=== PATIENT | female | born 1955 | race Caucasian/White ===

== ENCOUNTER 2019-12-28 14:46 | Outpatient (REF) | payer MEDICARE, OTHER, SELFPAY ==
--- NOTE | 2019-12-28 14:54 | MM_ITS ---
EXAMINATION: BONE DENSITOMETRY CLINICAL INDICATION: Asymptomatic menopausal state. COMPARISON: Baseline BD dated 04/11/2008. TECHNIQUE: Using a [employer]eline DXA System (software version: 13.1) manufactured by [employer], dual-energy x-ray absorptiometry was performed of the lumbar spine and left hip. The images are of good technical quality. Summary results are attached. FINDINGS: AP SPINE L1-L2 (excluding L3 and L4): The data of L1-L4 has been changed to exclude the L3 and L4 vertebral bodies, because degenerative sclerosis at these levels may cause overestimation of lumbar spine density. Current: BMD 1.181 g/cm2, Z-score 1.4, T-score 0.1, normal, 0.3% decrease from baseline (<5% change is not significant). Baseline: BMD 1.185 g/cm2. LEFT FEMUR, NECK: Current: BMD 0.937 g/cm2, Z-score 0.5, T-score -0.7, normal. Baseline: BMD 0.957 g/cm2. LEFT FEMUR, TOTAL: Current: BMD 1.112 g/cm2, Z-score 1.8, T-score 0.8, normal, 2.9% increase from baseline (<5% change is not significant). Baseline: BMD 1.081 g/cm2. IDENTIFIED RISK FACTORS: Menopause, thiazide. HISTORY OF FRACTURE: None listed. MEDICATIONS: Vitamin D. MM/XR DEXA axial skeleton IMPRESSION: 1. DIAGNOSIS: Normal bone density based on the lowest T-score value of -0.7 in the femoral neck applying World Health Organization criteria. 2. 10-YEAR FRACTURE RISK PREDICTION, FRAX: Major osteoporotic fracture (clinical spine, forearm, hip or shoulder) 7.3%. Hip fracture 0.4%. 3. Treatment Recommendations: NOF guidelines recommend consideration for treatment in postmenopausal women and men age 50 and older presenting with the following: -A hip or vertebral (clinical or morphometric) fracture. -T-score less than or equal to -2.5 at the femoral neck or spine after appropriate evaluation to exclude secondary causes. -Low bone mass at the hip or spine and a 10-year fracture probability by FRAX of greater than or equal to 3% for hip fracture or greater than or equal to 20% for major osteoporotic fracture based on the [place] adapted WHO algorithm. 4. Other Recommendations: All treatment decisions require clinical judgment and consideration of individual patient factors, including patient preferences, comorbidities, previous drug use, risk factors not captured in the FRAX model (e.g. frailty, falls, vitamin D deficiency, increased bone turnover, interval significant decline in bone density) and possible under or overestimation of fracture risk by FRAX. FUTURE SCAN RECOMMENDATION: People with diagnosed cases of osteoporosis or at high risk for fracture should have regular bone mineral density tests. For patients eligible for Medicare, routine testing is allowed once every 2 years. The testing frequency can be increased to one year for patients who have rapidly progressing disease, those who are receiving or discontinuing medical therapy to restore bone mass, or have additional risk factors.
--- NOTE | 2019-12-28 14:55 | MM_ITS ---
EXAMINATION: MM SCREENING DIGITAL BREAST TOMOSYNTHESIS, BILATERAL CLINICAL INFORMATION: Screening. Asymptomatic. The lifetime risk of breast cancer based on the Tyrer-Cuzick Model is 6%. COMPARISON: Mammography: 05/15/2018, 12/20/2016 TECHNIQUE: Digital breast tomosynthesis is performed in both the craniocaudal and mediolateral oblique views along with computer-aided detection (CAD). Synthesized 2D images are generated from the tomosynthesis. FINDINGS: There are scattered areas of fibroglandular density (ACR BI-RADS breast composition Category b). Parenchymal pattern is similar to prior studies. No developing density or interval mass or architectural abnormality. There are some dermal lesions again noted overlying both breasts, better appreciated on tomography. Scattered bilateral punctate calcifications are again noted. There are no suspicious changes. MM/MM tomosynthesis screening BI IMPRESSION: No significant changes from prior studies. ASSESSMENT: BI-RADS 2: Benign RECOMMENDATION: Routine annual mammography screening. This patient's information was entered into a reminder system with a target due date for their next mammogram.
== END 2019-12-28 14:47 | disposition home or self-care (01) ==
LOC: HO.MAMMO 14:46
PROVIDERS: PCP Internal Medicine; Visit Provider Internal Medicine
DX: Z12.31 Encounter for screening mammogram for malignant neoplasm of breast (principal); Z13.820 Encounter for screening for osteoporosis; Z78.0 Asymptomatic menopausal state; Z79.899 Other long term (current) drug therapy
CPT/HCPCS: 77063; 77067; 77080

== ENCOUNTER 2020-02-21 06:53 | Outpatient (REF) | payer MEDICARE, OTHER, SELFPAY ==
[2020-02-21 08:31] LABS: Alanine Aminotransferase 24 U/L (0-31); Anion Gap 13 (12-20); Aspartate Amino Transferase 16 U/L (5-31); Blood Urea Nitrogen 28 mg/dL (9-16); Calcium 9.7 mg/dL (8.4-10.2); Carbon Dioxide 28 mmol/L (22-29); Chloride 104 mmol/L (96-108); Cholesterol 251 mg/dL; Estimated Glomerular Filt Rate > 60; Glucose Fasting 105 mg/dL (60-99); HDL Cholesterol 49 mg/dL; LDL Cholesterol Calculated 163 mg/dl; Potassium 4.4 mmol/l (3.3-5.1); Sodium 141 mmol/L (135-145); Triglycerides 196 mg/dL
[2020-02-21 08:47] LABS: Estimated Average Glucose 120 mg/dL; Hemoglobin A1C 151.8836 umol/L; Hemoglobin A1c % 5.8 %
[2020-02-21 08:54] LABS: Free T4 (Free Thyroxine) 0.91 ng/dL (0.71-1.85); Thyroid Stimulating Hormone 3.71 uIU/mL (0.32-4.0); Vitamin D 25-OH Total 32.1 ng/mL (>30)
[2020-02-22 11:13] LABS: Lyme Abs Screen <0.90 index
== END 2020-02-21 06:54 | disposition home or self-care (01) ==
LOC: HO.LAB 06:53
PROVIDERS: PCP Internal Medicine; Visit Provider Internal Medicine
DX: I10 Essential (primary) hypertension (principal); R73.01 Impaired fasting glucose; E03.9 Hypothyroidism, unspecified; E78.5 Hyperlipidemia, unspecified; Z78.0 Asymptomatic menopausal state; S40.861A Insect bite (nonvenomous) of right upper arm, initial encounter
CPT/HCPCS: 36415; 80048; 80061; 82306; 83036; 84439; 84443; 84450; 84460; 86618

== ENCOUNTER 2020-07-02 10:16 | Outpatient (REF) | payer MEDICARE, OTHER, SELFPAY ==
--- NOTE | ~2020-07-02 | XR_ITS ---
EXAMINATION: XR HAND WRIST, LEFT CLINICAL INFORMATION: Pain in left wrist. COMPARISON: None TECHNIQUE: The left hand and wrist are imaged together in 3 large [id number]-[id number] images for a total of 3 views. FINDINGS: There is normal bony mineralization. There is no fracture, dislocation, or destructive process. The ulnar variance is neutral. The carpus shows no joint narrowing or erosive change or chondrocalcinosis. There is a small benign corticated ossicle adjacent to the radial styloid. The MCP and PIP joints are unremarkable. There are mild osteoarthritic changes involving the DIP joints, greatest at the 5th finger. No erosive change. XR/XR hand wrist LT IMPRESSION: 1. Degenerative changes DIP joints, greatest 5th finger. 2. Unremarkable wrist.
== END 2020-07-02 10:17 | disposition home or self-care (01) ==
LOC: HO.HMGCX 10:16
PROVIDERS: PCP Internal Medicine; Visit Provider Internal Medicine
DX: M25.532 Pain in left wrist (principal)
CPT/HCPCS: 73110; 73130

== ENCOUNTER 2020-07-07 07:26 | Outpatient (REF) | payer MEDICARE, OTHER, SELFPAY ==
[2020-07-07 08:03] LABS: MANUAL DIFF FLAG NO
[2020-07-07 08:13] LABS: Basophils Percent Auto 0.3 % (0-2); Eosinophils Absolute Auto 0.3 X10*3/uL (0.0-0.4); Hematocrit 40.4 % (37-47); Hemoglobin 13.4 g/dl (12.0-16.0); Imm Gran Abs Auto 0.01 X10*3/uL (0.00-0.03); Imm Gran Pct Auto 0.2 % (0.0-0.4); Lymphocytes Absolute Auto 3.2 X10*3/uL (1.2-4.9); Mean Corpuscular HGB Conc 33.2 g/dl (31.0-35.0); Mean Corpuscular Volume 90.4 fL (80-98); Mean Platelet Volume 10.3 fL (9.4-12.3); Monocytes Absolute Auto 0.5 X10*3/uL (0.1-1.2); Monocytes Percent Auto 7.4 % (2-11); Neutrophils Absolute Auto 2.6 X10*3/uL (2.0-8.3); Neutrophils Percent Auto 40.1 % (45-73); Platelet Count 223 X10*3/uL (160-400); Red Blood Count 4.47 X10*6/uL (4.20-5.50); Red Cell Distribution Width 12.9 % (11.0-16.0); White Blood Count 6.6 X10*3/uL (4.8-10.8)
[2020-07-07 08:16] LABS: Estimated Average Glucose 120 mg/dL; Hemoglobin A1c % 5.8 %
[2020-07-07 08:40] LABS: Alanine Aminotransferase 27 U/L (0-31); Anion Gap 13 (12-20); Aspartate Amino Transferase 19 U/L (5-31); Blood Urea Nitrogen 19 mg/dL (9-16); Calcium 9.7 mg/dL (8.4-10.2); Carbon Dioxide 27 mmol/L (22-29); Chloride 105 mmol/L (96-108); Cholesterol 186 mg/dL; Estimated Glomerular Filt Rate > 60; Glucose Fasting 109 mg/dL (60-99); HDL Cholesterol 40 mg/dL; LDL Cholesterol Calculated 121 mg/dl; Potassium 3.8 mmol/L (3.3-5.1); Sodium 141 mmol/L (135-145); Triglycerides 129 mg/dL
[2020-07-07 08:54] LABS: Free T4 (Free Thyroxine) 1.08 ng/dL (0.71-1.85); Thyroid Stimulating Hormone 1.54 uIU/mL (0.32-4.0); Vitamin D 25-OH Total 40.9 ng/mL (>30)
== END 2020-07-07 07:27 | disposition home or self-care (01) ==
LOC: HO.LAB 07:26
PROVIDERS: PCP Internal Medicine; Visit Provider Internal Medicine
DX: E03.9 Hypothyroidism, unspecified (principal); E78.5 Hyperlipidemia, unspecified; R73.01 Impaired fasting glucose; K21.9 Gastro-esophageal reflux disease without esophagitis; I10 Essential (primary) hypertension
CPT/HCPCS: 36415; 80048; 80061; 82306; 83036; 84439; 84443; 84450; 84460; 85025

== ENCOUNTER 2021-02-23 10:16 | Outpatient (REF) | payer MEDICARE, OTHER, SELFPAY ==
--- NOTE | ~2021-02-23 | MM_ITS ---
EXAMINATION: MM SCREENING DIGITAL BREAST TOMOSYNTHESIS, BILATERAL CLINICAL INFORMATION: Screening. Asymptomatic. The lifetime risk of breast cancer based on the Tyrer-Cuzick Model is 7%. COMPARISON: Mammography: 12/28/2019, 05/15/2018, 12/20/2016 TECHNIQUE: Digital breast tomosynthesis is performed in both the craniocaudal and mediolateral oblique views along with computer-aided detection (CAD). Synthesized 2D images are generated from the tomosynthesis. FINDINGS: There are scattered areas of fibroglandular density (ACR BI-RADS breast composition Category b). Parenchymal pattern is similar to prior studies. There is no developing density or interval architectural abnormality. Again, there are scattered bilateral punctate calcifications. The axilla are unremarkable. There are some dermal lesions overlying the bilateral posterior inferior breasts and upper left breast. No significant changes from prior study. MM/MM tomosynthesis screening BI IMPRESSION: There are no significant changes from prior study. ASSESSMENT: BI-RADS 2: Benign RECOMMENDATION: Routine annual mammography screening. This patient's information was entered into a reminder system with a target due date for their next mammogram.
== END 2021-02-23 10:17 | disposition home or self-care (01) ==
LOC: HO.MAMMO 10:16
PROVIDERS: PCP Internal Medicine; Visit Provider Internal Medicine
DX: Z12.31 Encounter for screening mammogram for malignant neoplasm of breast (principal)
CPT/HCPCS: 77063; 77067

== ENCOUNTER 2022-01-11 09:37 | Outpatient (REF) | payer MEDICARE, OTHER, SELFPAY ==
[2022-01-11 12:01] LABS: Estimated Average Glucose 117 mg/dL; Hemoglobin A1c % 5.7 %
[2022-01-11 12:53] LABS: Alanine Aminotransferase 27 U/L (0-31); Aspartate Amino Transferase 19 U/L (5-31); Cholesterol 205 mg/dL; HDL Cholesterol 48 mg/dL; LDL Cholesterol Calculated 133 mg/dl; Thyroid Stimulating Hormone 0.89 uIU/mL (0.32-4.0); Triglycerides 123 mg/dL; Vitamin D 25-OH Total 47.6 ng/mL (>30)
== END 2022-01-11 09:38 | disposition home or self-care (01) ==
LOC: HO.HMGCLDS 09:37
PROVIDERS: PCP Internal Medicine; Visit Provider Internal Medicine
DX: E03.9 Hypothyroidism, unspecified (principal); E78.5 Hyperlipidemia, unspecified; I10 Essential (primary) hypertension; R73.01 Impaired fasting glucose; Z78.0 Asymptomatic menopausal state
CPT/HCPCS: 36415; 80061; 82306; 83036; 84443; 84450; 84460

== ENCOUNTER 2022-05-31 07:01 | Outpatient (REF) | payer MEDICARE, OTHER, SELFPAY ==
[2022-05-31 08:06] LABS: Anion Gap 12 (12-20); Blood Urea Nitrogen 23 mg/dL (9-16); Calcium 9.5 mg/dL (8.4-10.2); Carbon Dioxide 29 mmol/L (22-29); Chloride 104 mmol/L (96-108); Estimated Glomerular Filt Rate > 60; Glucose Fasting 114 mg/dL (60-99); Potassium 4.4 mmol/L (3.3-5.1); Sodium 141 mmol/L (135-145)
== END 2022-05-31 07:02 | disposition home or self-care (01) ==
LOC: HO.LAB 07:01
PROVIDERS: PCP Internal Medicine; Visit Provider Internal Medicine
DX: E03.9 Hypothyroidism, unspecified (principal); E78.5 Hyperlipidemia, unspecified; I10 Essential (primary) hypertension; R73.01 Impaired fasting glucose; Z78.0 Asymptomatic menopausal state
CPT/HCPCS: 36415; 80048; 84439

== ENCOUNTER 2022-07-08 07:58 | Outpatient (REF) | payer MEDICARE, OTHER, SELFPAY ==
--- NOTE | ~2022-07-08 | MM_ITS ---
EXAMINATION: MM SCREENING DIGITAL BREAST TOMOSYNTHESIS, BILATERAL CLINICAL INFORMATION: Screening. Asymptomatic. The lifetime risk of breast cancer based on the Tyrer-Cuzick Model is 6%. COMPARISON: Mammography: 02/23/2021, 12/28/2019, 05/15/2018 TECHNIQUE: Digital breast tomosynthesis is performed in both the craniocaudal and mediolateral oblique views along with computer-aided detection (CAD). Synthesized 2D images are generated from the tomosynthesis. FINDINGS: There are scattered areas of fibroglandular density (ACR BI-RADS breast composition Category b). Parenchymal pattern is similar to prior exams and there is no significant mass or developing density or architectural abnormality. Scattered bilateral punctate calcifications are again noted in both breasts. There are 2 small stable nodules mid outer left breast likely intramammary nodes. Dermal lesion again seen overlying upper left breast. The axilla are unremarkable. No significant changes. MM/MM tomosynthesis screening BI IMPRESSION: No mammographic evidence of malignancy. ASSESSMENT: BI-RADS 2: Benign RECOMMENDATION: Routine annual mammography screening. This patient's information was entered into a reminder system with a target due date for their next mammogram.
== END 2022-07-08 07:59 | disposition home or self-care (01) ==
LOC: HO.MAMMO 07:58
PROVIDERS: PCP Internal Medicine; Visit Provider Internal Medicine
DX: Z12.31 Encounter for screening mammogram for malignant neoplasm of breast (principal)
CPT/HCPCS: 77063; 77067

== ENCOUNTER 2022-08-23 10:13 | Outpatient (REF) | payer MEDICARE, OTHER, SELFPAY ==
--- NOTE | ~2022-08-23 | US_ITS ---
EXAMINATION: US EXTRACRANIAL CAROTID DUPLEX, BILATERAL CLINICAL INFORMATION: Dizziness and giddiness COMPARISON: None available. TECHNIQUE: Real-time ultrasound and Doppler techniques (integrating B-mode 2-D vascular images, Doppler spectral analysis and color-flow Doppler imaging) were utilized to interrogate the extracranial carotid arteries, the vertebral arteries and proximal subclavian arteries bilaterally. The degree of stenosis is determined by criteria similar to NASCET. FINDINGS: Right Side: 1. There is no atherosclerotic plaque seen in the bifurcation/proximal ICA region. 2. The common carotid artery PSV proximally is 96 cm/s and distally 81 cm/s. 3. The proximal internal carotid artery velocities are 61 cm/s systolic and 27 cm/s diastolic. 4. The proximal external carotid artery PSV is 83 cm/s. 5. The vertebral artery shows antegrade flow. 6. The subclavian artery waveforms are normal. Left Side: 1. There is no atherosclerotic plaque seen in the bifurcation/proximal ICA region. 2. The common carotid artery PSV proximally is 70 cm/s and distally 83 cm/s. 3. The proximal internal carotid artery velocities are 66 cm/s systolic and 27 cm/s diastolic. 4. The proximal external carotid artery PSV is 98 cm/s. 5. The vertebral artery shows antegrade flow. 6. The subclavian artery waveforms are normal. US/US carotid duplex BI IMPRESSION: 1. RIGHT: Normal right internal carotid artery without atherosclerotic plaque or hemodynamically significant stenosis. 2. LEFT: Normal left internal carotid artery without atherosclerotic plaque or hemodynamically significant stenosis.
== END 2022-08-23 10:14 | disposition home or self-care (01) ==
LOC: HO.US 10:13
PROVIDERS: PCP Internal Medicine; Visit Provider Internal Medicine
DX: R42 Dizziness and giddiness (principal)
CPT/HCPCS: 93880

== ENCOUNTER 2023-01-12 08:11 | Outpatient (AMB) | payer MEDICARE, OTHER, SELFPAY ==
[2023-01-12 08:21] VITALS: BP 142/88; PULSE 64; O2SAT 98; BMI 35.2
--- NOTE | 2023-01-12 08:21 | AM.OFFVISMDC ---
Intake Vital Signs 01/12/23 08:21 Height 5 ft Weight 180 lb 8 oz BMI 35.2 BP 142/88 H Blood Pressure Location Rt brachial Position Sitting Pulse 64 Pulse Source Pulse Oximeter Pulse Oximetry (%) 98 Oxygen Delivery Method Room Air Intake Visit Reasons: SWV [id number] Intake Note: pt declined health care proxy and molst form Allergies amlodipine [From Lotrel] Allergy (Unknown, Verified 01/12/23 09:02) Rash benazepril [From Lotrel] Allergy (Unknown, Verified 01/12/23 09:02) Rash IVP dye Allergy (Unknown, Uncoded 01/12/23 09:02) rash Medication List - Last Reconciled 01/12/23 by Francesca Bass MD albuterol sulfate 90 mcg/actuation (ProAir HFA) 2 puffs inhalation Q6H PRN aspirin (Adult Low Dose Aspirin) 81 mg PO DAILY atorvastatin 40 mg PO DAILY cholecalciferol (vitamin D3) 25 mcg PO DAILY hydrochlorothiazide 12.5 mg PO QAM levothyroxine 50 mcg PO DAILY meloxicam 15 mg PO DAILY metoprolol succinate ER 100 mg PO DAILY omeprazole 40 mg PO DAILY piroxicam 10 mg PO DAILY HPI SWV G0439 HPI Details SWV ? 67-year-old lady here today for her subsequent annual wellness visit. She is up-to-date with her screening mammogram, done July 08 with negative findings, last Pap smear was done by Dr. Butler in 2015 which came back with negative findings as well. She had a screening colonoscopy done 06/26/[address] Mcintosh, due again in 2028. A bone density was done on 12/28/2019 which came back with normal findings in both lumbar spine , left femur and left femoral? neck. She had a fasting lipid panel screening done 01/11/2022 which showed an LDL cholesterol at 133, normal triglycerides and total cholesterol. And fasting blood sugar was checked 12/31/2022 which showed blood sugar readings in the prediabetic range at 114 mg/dL She is up-to-date with her flu shot, pneumonia vaccination, Shingrix vaccine and Tdap but is due for her COVID booster ? Medical / Social History Reviewed? Past Medical History ?Yes . ? [place] of Care / Care Team list updated ?Yes . ? Surgical/Hospitalization History ?Yes . ? Current Medications (including OTC and supplements) ?Yes . ? Family History ?Yes . ? Tobacco Control form ?Yes . ? AUDIT-C (Alcohol use) form ?Yes . ? Illicit drug use in Social History ?Yes . ? Current diagnosis of depression? ?No ? Appropriate PHQ2/PHQ9 completed ?Yes . ? Data entered by ?Personnel Counselor and reviewed by provider ? Fall Risk ? Fall History? Have you had any falls with injury in the past year? ?No . ? Have you had two or more falls in the past year? ?No . ? Fall Risk Assessment: ?No falls in the past year . ? HRA filled out by the patient, reviewed by Provider and scanned. ?SWV ? Balance? Romberg ?Yes . ? Tandem walk ?Yes . ? Walk and Turn ?Yes . ? Rise from sit to stand ?Yes . ?Vision? Corrective lens ?Yes ? Vision screen ? Up-to-date, sees Dr. Dewitt at [facility] ?Hearing? Whisper test ?pass, but with the use of hearing aid . ?Written Plan?Completed. See Patient Documents.? [facility] Medical History (Updated 01/12/23 @ 14:01 by Francesca Bass MD) Hearing impairment Tinnitus of both ears Intermittent lightheadedness Exercise induced bronchospasm Tick bite of right upper arm History of gallstones Impaired fasting glucose Acquired hypothyroidism Carpal tunnel syndrome Mild acquired hearing loss GERD (gastroesophageal reflux disease) Keratitis, herpetic Dyslipidemia Osteoarthritis of spine Essential hypertension Surgical History History of myomectomy History of carpal tunnel surgery Hx of cholecystectomy Family History Father Arthritis CVD (cardiovascular disease) Mother Arthritis HTN (hypertension) Non-insulin dependent diabetes mellitus History of CVA (cerebrovascular accident) Brother No problems noted. Sister No problems noted. Sister Mental health disorder Sister Ovarian cancer Tubular adenoma Sister Factor V Leiden Social History Housing: House Alcohol intake: current Alcohol intake frequency: holidays/special occasions only Patient Tobacco Use Status: Never used Tobacco e-Cigarette/Vaping Use: Never Used Current occupational status: retired Cognitive needs: No Hearing needs: No Vision needs: Yes Female Reproductive History Menstrual Menopause type: natural Date of Mammogram: 07/08/22 Date of last Bone Density Screenin12/28/19 Questionnaire Medicare Wellness Checkup What [age] 65-68 What gender do you identify with?: female During the past 4 weeks, how much have you been bothered by emotional problems such as feeling anxious, depressed, irritable, sad or downhearted, and blue?: slightly During the past 4 weeks, has your physical & emotional health limited your social activities with family, friends, neighbors, or groups?: not at all During the past 4 weeks, how much bodily pain have you generally had?: very mild pain During the past 4 weeks, was someone available to help you if you needed & wanted help?: yes, as much as I wanted During the past 4 weeks, what was the hardest physical activity you could do for at least 2 minutes?: heavy Can you get to places out of walking distance without help? (For eg., can you travel alone on buses, taxis or drive your car?): Yes Can you go shopping for groceries or clothes without someone's help?: Yes Can you prepare your own meals?: Yes Can you do your housework without help?: Yes Because of any health problems, do you need the help of another person with your personal care needs such as eating, bathing, dressing or getting around the house?: No Can you handle your own money without help?: Yes During the past 4 weeks, how would you rate your health in general?: good During the past 4 weeks how have things been going for you?: pretty well Are you having difficulties driving your car?: no Do you always fasten your seat belt when you are in a car?: yes, usually During past 4 weeks, have you been bothered by the following: never: Falling or dizzy when standing up, Sexual problems?, Trouble eating well? and Problems using the telephone?, seldom: Teeth or denture problems? and sometimes: Tiredness or fatigue? Have you fallen 2 or more times in the past year?: No Are you afraid of falling?: No Are you a smoker?: no During the past 4 weeks, how many drinks of wine, beer, or other alcoholic beverages did you have?: no alcohol at all Do you exercise for about 20 minutes 3 or more times a week?: yes, some of the time Have you been given information to help with the following?: no: Hazards in your house that might hurt you? and no: Keeping track of your medications? How often do you have trouble taking medicines the way you have been told to take them?: I always take medicine as prescribed How confident are you that you can control & manage most of your health problems?: very confident What is your race?: White Mini Mental State Exam (MMSE) Orientation What is the (year) (season) (date) (day) (month)?: year (2022), season (Fall), date (01/12/2023), day (Tuesday) and month (December) Where are we (state) (county) (town or city) (hospital) (floor)?: state ([place]), county ([place]), town or city ([place]) and hospital/clinic ([facility]) Score Score: 9 Activity of Daily Living Bathing - sponge bath, tub bath or shower: receives no assistance (gets in/out by self, if usual bathing means Dressing - getting clothes from closets & drawers, including inner/outer garments & fasteners.: gets clothes & gets completely dressed without help Toileting - going to the 'toilet room' for urine/bowel elimination & cleaning self/arranging clothes: goes to toilet room, cleans self, arranges clothes without help Transfer: moves in & out of bed and chair without help (may use support object) Continence: controls urination/bowel movements completely by self Feeding: feeds self without help Total Score: 0 Information obtained from: patient Using telephone: independent Traveling: independent Shopping: independent Preparing meals: independent Housework: independent Taking medicine: independent Managing money: independent PHQ-9 Over the last 2 weeks, how often have you been bothered by any of the following problems? 1. Little interest or pleasure in doing things: several days 2. Feeling down, depressed, or hopeless: not at all 3. Trouble falling or staying asleep, or sleeping too much: several days 4. Feeling tired or having little energy: several days 5. Poor appetite or overeating: several days 6. Feeling bad about yourself - or that you are a failure or have let yourself or your family down: not at all 7. Trouble concentrating on things, such as reading the newspaper or watching television: not at all 8. Moving or speaking so slowly that other people could have noticed. Or the opposite - being so fidgety or restless that you have been moving around a lot more than usual: not at all 9. Thoughts that you would be better off or of hurting yourself in some way: not at all Total score: 4 Depression Screening Interpretation: Negative Depression Screening Done: Yes [id number] - PHQ-9 Billing: Yes Source: Developed by Drs. Oni Quesada, Patrizia Bianchi, Andrew Head and colleagues, with an educational carter from [employer]. Physical Exam Vital Signs: Last Vital Signs Pulse 64 01/12/23 08:21 BP 142/88 H 01/12/23 08:21 Pulse Ox 98 01/12/23 08:21 Oxygen Delivery Method Room Air 01/12/23 08:21 BMI result Body Mass Index 35.2 Assessment & Plan Assessment & Plan (1) Encounter for subsequent annual wellness visit (AWV) in Medicare patient: Code(s): Z00.00 - Encounter for general adult medical examination without abnormal findings Plan: Medical wellness checklist reviewed, discussed with patient and updated. Copy given. Patient declined doing healthcare proxy and MOLST form (2) Impaired fasting glucose: Code(s): R73.01 - Impaired fasting glucose Plan: Your fasting blood sugars elevated above 100 mg/dL. Impaired glucose metabolism O2 at risk for developing diabetes mellitus type 2, as well as heart attack and stroke later on. Lifestyle changes at just weight loss, healthy eating habits, and regular exercise are important, and can prevent the progression to diabetes (3) Acquired hypothyroidism: Code(s): E03.9 - Hypothyroidism, unspecified Plan: On levothyroxine 50 mcg daily (4) Keratitis, herpetic: Code(s): B00.52 - Herpesviral keratitis Plan: Sees her eye doctor yearly at [facility] (5) Dyslipidemia: Code(s): E78.5 - Hyperlipidemia, unspecified Plan: On atorvastatin 40 mg daily (6) Osteoarthritis of spine: Code(s): M47.9 - Spondylosis, unspecified Plan: Takes paroxetine 10 mg daily as needed (7) Essential hypertension: Code(s): I10 - Essential (primary) hypertension Plan: On metoprolol succinate ER 100 mg daily and hydrochlorothiazide 12.5 mg daily in a.m. (8) Asymptomatic age-related postmenopausal state: Code(s): Z78.0 - Asymptomatic menopausal state Plan: Ordered a bone density scan to screen for osteoporosis/osteopenia Orders: Orders XR DEXA axial skeleton 07/11/23 Z78.0 - Asymptomatic menopausal state Quality Reporting (2019) Depression/Bipolar (159/160/161/177) PHQ-9: Total score: 4 Coding Level of Care Code Medicare Subsequent (G0439) Diagnoses Encounter for subsequent annual wellness visit (AWV) in Medicare patient Z00.00 Impaired fasting glucose R73.01 Acquired hypothyroidism E03.9 Keratitis, herpetic B00.52 Dyslipidemia E78.5 Osteoarthritis of spine M47.9 Essential hypertension I10 Asymptomatic age-related postmenopausal state Z78.0 Advance Care Planning Advance Care Planning discussion: Declined forms
== END 2023-01-12 10:46 | disposition home or self-care (01) ==
PROVIDERS: Visit Provider Internal Medicine
DX: Z00.00 Encounter for general adult medical examination without abnormal findings (principal); R73.01 Impaired fasting glucose; E03.9 Hypothyroidism, unspecified; B00.52 Herpesviral keratitis; E78.5 Hyperlipidemia, unspecified; M47.9 Spondylosis, unspecified; I10 Essential (primary) hypertension; Z78.0 Asymptomatic menopausal state
CPT/HCPCS: G0439

== ENCOUNTER 2023-01-17 08:23 | Outpatient (REF) | payer MEDICARE, OTHER, SELFPAY ==
[2023-01-17 09:54] LABS: Alanine Aminotransferase 37 U/L (0-31); Anion Gap 14 (12-20); Aspartate Amino Transferase 22 U/L (5-31); Blood Urea Nitrogen 17 mg/dL (9-16); Calcium 9.9 mg/dL (8.4-10.2); Carbon Dioxide 28 mmol/L (22-29); Chloride 105 mmol/L (96-108); Cholesterol 242 mg/dL (<200); Estimated Glomerular Filt Rate > 60; Glucose Fasting 123 mg/dL (60-99); HDL Cholesterol 45 mg/dL (>40); LDL Cholesterol Calculated 155 mg/dL (<100); Potassium 4.1 mmol/L (3.3-5.1); Sodium 143 mmol/L (135-145); Triglycerides 213 mg/dL (<150)
[2023-01-17 10:01] LABS: Free T4 (Free Thyroxine) 0.94 ng/dL (0.71-1.85); Thyroid Stimulating Hormone 2.49 uIU/mL (0.32-4.0); Vitamin D 25-OH Total 51.6 ng/mL (>30)
[2023-01-17 10:14] LABS: Estimated Average Glucose 123 mg/dL; Hemoglobin A1C 150.5049 umol/L; Hemoglobin A1c % 5.9 % (<6.0)
== END 2023-01-17 08:24 | disposition home or self-care (01) ==
LOC: HO.LAB 08:23
PROVIDERS: PCP Internal Medicine; Visit Provider Internal Medicine
DX: E03.9 Hypothyroidism, unspecified (principal); E78.5 Hyperlipidemia, unspecified; I10 Essential (primary) hypertension; R73.01 Impaired fasting glucose; Z78.0 Asymptomatic menopausal state
CPT/HCPCS: 36415; 80048; 80061; 82306; 83036; 84439; 84443; 84450; 84460

== ENCOUNTER 2023-03-23 13:00 | Outpatient (AMB) | payer MEDICARE, OTHER, SELFPAY ==
[2023-03-23 13:39] VITALS: BP 144/80; PULSE 70; O2SAT 97; BMI 35.7
--- NOTE | 2023-03-23 13:39 | A.OFFPC_ITS ---
Vital Signs 03/23/23 13:39 Height 5 ft Weight 183 lb BMI 35.7 BP 144/80 H Blood Pressure Location Rt brachial Position Sitting Pulse 70 Pulse Source Pulse Oximeter Pulse Oximetry (%) 97 Oxygen Delivery Method Room Air Intake Visit Reasons: Follow-up visit. Intake Note: Pt is here today for her f/u visit, also c/o Lt ankle swells Allergies amlodipine [From Lotrel] Allergy (Unknown, Verified 04/02/23 02:19) Rash benazepril [From Lotrel] Allergy (Unknown, Verified 04/02/23 02:19) Rash IVP dye Allergy (Unknown, Uncoded 04/02/23 02:19) rash Medication List - Last Reconciled 04/02/23 by Francesca Bass MD albuterol sulfate 90 mcg/actuation (ProAir HFA) 2 puffs inhalation Q6H PRN aspirin (Adult Low Dose Aspirin) 81 mg PO DAILY atorvastatin 40 mg PO DAILY cholecalciferol (vitamin D3) 25 mcg PO DAILY hydrochlorothiazide 12.5 mg PO QAM levothyroxine 50 mcg PO DAILY meloxicam 15 mg PO DAILY metoprolol succinate ER 100 mg PO DAILY omega-3 fatty acids 1,250 mg PO BID 3 months omeprazole 40 mg PO DAILY piroxicam 10 mg PO DAILY Tobacco use date assessed: 03/23/23 Fall risk assessment: No Falls in past year Last assessed Fall Risk: 03/23/23 Dental Screening Dental Screen Date: 03/23/23 Did you have a dental visit in the last 12 months?: Yes Did you have a dental problem in the last 6 months where you did not have access to dental care?: No Was dental information given to patient?: Patient has dentist HPI Follow-up visit. HPI Details 68-year-old lady with history of hyperli pidemia, acquired hypothyroidism, impaired fasting glucose, and exercise-induced bronchospasm, here today for follow-up. She has been compliant with her diet and medications. Recent fasting labs done showed normal electrolytes, renal function, and thyroid levels. Her fasting glucose however was in the prediabetic range and her cholesterol panel showed elevated triglycerides and LDL cholesterol. She is also complaining of intermittent episodes of swelling in both lower extremities mainly on her left ankle sometimes on her right. She has been cutting back on her salt intake, elevating her legs which affords only temporary relief. Denies any accompanying chest pain, no shortness of breath or lightheadedness. [facility] Medical History (Updated 03/23/23 @ 14:18 by Francesca Bass MD) Family history of peripheral vascular disease Localized swelling of both lower legs Hearing impairment Tinnitus of both ears Intermittent lightheadedness Exercise induced bronchospasm Tick bite of right upper arm History of gallstones Impaired fasting glucose Acquired hypothyroidism Carpal tunnel syndrome Mild acquired hearing loss GERD (gastroesophageal reflux disease) Keratitis, herpetic Dyslipidemia Osteoarthritis of spine Essential hypertension Surgical History History of myomectomy History of carpal tunnel surgery Hx of cholecystectomy Family History Father Arthritis CVD (cardiovascular disease) Mother Arthritis HTN (hypertension) Non-insulin dependent diabetes mellitus History of CVA (cerebrovascular accident) Brother No problems noted. Sister No problems noted. Sister Mental health disorder Sister Ovarian cancer Tubular adenoma Sister Factor V Leiden Social History Housing: House Alcohol intake: current Alcohol intake frequency: holidays/special occasions on ly Patient Tobacco Use Status: Never used Tobacco e-Cigarette/Vaping Use: Never Used Current occupational status: retired Cognitive needs: No Hearing needs: No Vision needs: Yes Questionnaire PHQ-9 Over the last 2 weeks, how often have you been bothered by any of the following problems? 1. Little interest or pleasure in doing things: not at all 2. Feeling down, depressed, or hopeless: not at all 3. Trouble falling or staying asleep, or sleeping too much: not at all 4. Feeling tired or having little energy: not at all 5. Poor appetite or overeating: not at all 6. Feeling bad about yourself - or that you are a failure or have let yourself or your family down: not at all 7. Trouble concentrating on things, such as reading the newspaper or watching television: not at all 8. Moving or speaking so slowly that other people could have noticed. Or the opposite - being so fidgety or restless that you have been moving around a lot more than usual: not at all 9. Thoughts that you would be better off or of hurting yourself in some way: not at all Total score: 0 Depression Screening Interpretation: Negative Depression Screening Done: Yes 47932 - PHQ-9 Billing: Yes Source: Developed by Drs. Oni Queasda, Patrizia Bianchi, Andrew Head and colleagues, with an educational carter from [employer]. Thrive Questionnaire Date Thrive assessed: 03/23/23 I am a: Patient What is your living situation today?: I have a steady place to live Within the past 12 months, did the food you bought not last and you didn't have the money to get more?: Never true Within the past 12 months, did you worry whether your food would run out before you got money to buy more?: Never true Do you have trouble paying for medicines?: No Do you have trouble getting transportation to medical appointments?: No Do you have trouble paying your heating and electricity bill?: No Do you have trouble taking care of your child, family member or friend?: No Do you have trouble with day-to-day activities such as bathing, preparing meals, shopping, managing finances, etc.?: No Are you currently unemployed and looking for a job?: No Are you interested in more education?: No THRIVE Score: 0 AUDIT C Alcohol Use Questionnaire (AUDIT-C) 1. How often do you have a drink containing alcohol?: Monthly or less 2. How many drinks containing alcohol do you have on a typical day when you are drinking?: 1 or 2 3. How often do you have six or more drinks on one occasion?: Never Total Score: 1 CHARLOTTE-7 AMB Questionnaire CHARLOTTE-7 Date CHARLOTTE - 7 assessed: 03/23/23 Feeling nervous, anxious, or on edge: 0 = Not at all Not being able to stop or control worryin = Not at all Worrying too much about different things: 0 = Not at all Trouble relaxin = Not at all Being so restless that it is hard to sit still: 0 = Not at all Becoming easily annoyed or irritable: 0 = Not at all Feeling afraid as if something awful might happen: 0 = Not at all Total CHARLOTTE-7 score (0-4 normal; 5-9 mild; 10-14 moderate; 15-21 severe): 0 Source: Developed by Drs. Oni Quesada, Patrizia Bianchi, Andrew Head and colleagues, with an educational carter from [employer]. CHARLOTTE-7 Assessment Billing CHARLOTTE-7 Assessment Tool: CHARLOTTE-7 Assessment [id number] Review of Systems Const Denies fatigue, Denies fever(s), Denies headache(s), Denies malaise and Denies weakness Eyes Denies change in vision ENT Denies headache(s), Denies nasal congestion, Denies nasal discharge and Denies sore throat Card Denies chest pain, Denies lightheadedness and Denies palpitations Resp Denies chest congestion and Denies cough GI Denies abdominal pain, Denies change in bowel habits and Denies heartburn Denies urinary frequency, Denies dysuria and Denies urinary urgency Musc Denies abnormal gait, Denies myalgias, Denies limited range of motion and Reports stiffness Neuro Denies abnormal gait, Denies headache(s) and Denies weakness Endo Denies fatigue, Denies polydipsia, Denies polyuria and Denies palpitations Krishna/Lymph Denies easy bruising Aller/Immun Denies seasonal rhinorrhea Physical exam (Primary Care) Vital Signs: Last Vital Signs Pulse 70 03/23/23 13:39 BP 144/80 H 03/23/23 13:39 Pulse Ox 97 03/23/23 13:39 Oxygen Delivery Method Room Air 03/23/23 13:39 BMI result Body Mass Index 35.7 Tobacco/Smoking Status: Tobacco use Status Tobacco use date assessed 03/23/23 03/23/23 13:45 Patient Tobacco Use Status Never used Tobacco 03/23/23 13:45 e-Cigarette/Vaping Use Never Used 03/23/23 13:45 PHQ-9: PHQ-9 Score PHQ-9: Total score 0 03/23/23 14:10 Depression Screening Interpretation: Negative Thrive Assessment: Date of Thrive Assessment Date Thrive assessed 03/23/23 03/23/23 13:45 Const General: no acute distress and alert Orientation/consciousness: patient oriented x3 HENMT Head: Yes normocephalic Ears: external ears normal General nose exam: Normal external nose present Face and sinus: Yes face symmetric Mouth: Normal oral and palatal mucosa present and moist mucous membranes Eyes General: appearance normal, both eyes and all related structures Neck Other: Nonpalpable thyroid gland Neck: Yes full ROM, Yes no lymphadenopathy and Yes supple Resp Auscultation: clear to auscultation bilaterally Cardio Other: S1-S2 present regular rate and rhythm GI Other: Her bowel sounds, soft, nontender, with no mass palpated Skin General skin exam: no rashes or lesions noted Neuro General: patient oriented x3, gait normal, tone normal, moves all extremities, Normal light touch and pain sensation and no focal motor deficits Extrem Other: Slight nonpitting 2+ edema noted in lower extremities left more than right General: Yes full ROM, Yes no joint enlargement, Yes no calf tenderness and Yes normal gait Results Reviewed Results Reviewed: me: Melba Kline Age/Sex: 67/F : 1955 Unit#: [id number] Attend Dr: Francesca Bass MD Re01/17/23 Status: DEP [facility]: SPEC : [id number] ANIA: 01/17/23 STATUS: COMP REQ : [id number] RECD: 01/17/[address]: Francesca Bass MD COMP: 01/17/23 ENTERED: 01/17/[address] [facility] [address]: ORDERED: Met Prof Fast, AST, ALT, Lipid Panel, Vitamin D 25-OH, Free T4, TSH Test Result Flag Reference Sodium 143 135-145 mmol/L Potassium 4.1 3.3-5.1 mmol/L CL 105 96-108 mmol/L CO2 28 22-29 mmol/L Gap 14 12-20 BUN 17 H 9-16 mg/dL Creat 0.78 0.5-1.4 mg/dL EGFR > 60 NOTE: For -[place] individuals, multiply the result by 1.210. Chronic Kidney Disease: Estimated GFR < 60 mL/min/1.73m2 Severe Kidney Disease: Estimated GFR < 15 mL/min/1.73m2 FBS 123 H 60-99 mg/dL A fasting glucose from 100-125 mg/dl is considered impaired (pre-diabetes). CA 9.9 8.4-10.2 mg/dL AST (GOT) 22 5-31 U/L ALT (GPT) 37 H 0-31 U/L Triglyceride 213 H <150 mg/dL Desirable Triglyceride: less than 150 mg/dL Borderline High Triglyceride 150-199 mg/dL High Triglyceride: 200-499 mg/dL Very High Triglyceride: greater than or equal to 5OO mg/dL Cholesterol 242 H <200 mg/dL Desirable Cholesterol: less than 200 mg/dL Borderline High Cholesterol: 200-239 mg/dL High Cholesterol: greater than 239 mg/dL LDL Calculated 155 H <100 mg/dL Desirable LDL: less than 100 mg/dL Near Optimal/Above Optimal LDL: 110-129 mg/dL Borderline High LDL: 130-159 mg/dL High LDL: 160-189 mg/dL Very High LDL: greater than or equal to 190 mg/dL HDL 45 >40 mg/dL Desirable HDL: greater than 40 mg/dL Note: This HDL assay may give artificially low results in patients with liver disease. Vit D 25-OH Tot 51.6 >30 ng/mL Health Based Reference Values* < 20 ng/mL Deficient 20-30 ng/mL Insufficient > 30 ng/mL Sufficient *Simba HENLEY. N Engl J Med. 2007;357:266-280 Care must be taken in interpreting Vitamin D results from different laboratories and methodologies. Published data demonstrated that results from patients undergoing hemodialysis may show a negative bias when tested with various automated 25-OH vitamin D assays when compared to LC-MS/MS. When testing samples from patients whose predominant form of Vitamin D is Vitamin D2, such as patients receiving Vitamin D2 supplementation, results that are subtherapeutic should be confirmed with another method such as LC-MS/MS. Free T4 0.94 0.71-1.85 ng/dL TSH 3rd Gen. 2.49 0.32-4.0 uIU/mL TSH 3rd Generation ([facility]) Assessment and Plan Assessment & Plan (1) Localized swelling of both lower legs: Code(s): R22.43 - Localized swelling, mass and lump, lower limb, bilateral (2) Family history of peripheral vascular disease: Code(s): Z82.49 - Family history of ischemic heart disease and other diseases of the circulatory system Plan: Vascular consult ordered (3) Impaired fasting glucose: Code(s): R73.01 - Impaired fasting glucose Plan: Your fasting blood sugars elevated above 100 mg/dL. Impaired glucose metabolism O2 at risk for developing diabetes mellitus type 2, as well as heart attack and stroke later on. Lifestyle changes at just weight loss, healthy eating habits, and regular exercise are important, and can prevent the progression to diabetes (4) Exercise induced bronchospasm: Code(s): J45.990 - Exercise induced bronchospasm Plan: Continue with albuterol inhaler as knee for episodes of bronchospasm and (5) Dyslipidemia: Code(s): E78.5 - Hyperlipidemia, unspecified Plan: Reviewed recent fasting lipid profile with patient with levels not at goal . Continue with atorvastatin 40 mg daily and added Lovejoy 3 fatty acid supplements, in addition to adherence to low-cholesterol diet and regular exercise, at least 30 minutes 3 to 4 times a week. Advised patient to make healthy food choices, eat more fruits, vegetables, whole grains, wild caught fish and low-fat dairy. Limit amount of meat and fried or fatty food products, as well as processed foods and fast foods. Follow-up scheduled with repeat fasting lipid panel in 3 months. (6) Essential hypertension: Code(s): I10 - Essential (primary) hypertension Plan: Systolic Blood pressure elevated . Continue metoprolol succinate ER 100 mg daily, hydrochlorothiazide 12.5 mg in the morning, and adherence to low-salt diet. 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 Continue with levothyroxine 50 mcg daily in a.m.. Repeat another TSH and free T4 level in 3 month Orders: Orders Alanine Aminotransferase 3 Months R73.01 - Impaired fasting glucose, J45.990 - Exercise induced bronchospasm, E78.5 - Hyperlipidemia, unspecified, I10 - Essential (primary) hypertension, R22.43 - Localized swelling, mass and lump, lower limb, bilateral Aspartate Amino Transferase 3 Months R73.01 - Impaired fasting glucose, J45.990 - Exercise induced bronchospasm, E78.5 - Hyperlipidemia, unspecified, I10 - Essential (primary) hypertension, R22.43 - Localized swelling, mass and lump, lower limb, bilateral Basic Metabolic Panel Fasting 3 Months R73.01 - Impaired fasting glucose, J45.990 - Exercise induced bronchospasm, E78.5 - Hyperlipidemia, unspecified, I10 - Essential (primary) hypertension, R22.43 - Localized swelling, mass and lump, lower limb, bilateral Hemoglobin A1c 3 Months R73.01 - Impaired fasting glucose, J45.990 - Exercise induced bronchospasm, E78.5 - Hyperlipidemia, unspecified, I10 - Essential (primary) hypertension, R22.43 - Localized swelling, mass and lump, lower limb, bilateral Lipid Panel 3 Months R73.01 - Impaired fasting glucose, J45.990 - Exercise induced bronchospasm, E78.5 - Hyperlipidemia, unspecified, I10 - Essential (primary) hypertension, R22.43 - Localized swelling, mass and lump, lower limb, bilateral Thyroid Stimulating Hormone 3 Months R73.01 - Impaired fasting glucose, J45.990 - Exercise induced bronchospasm, E78.5 - Hyperlipidemia, unspecified, I10 - Essential (primary) hypertension, R22.43 - Localized swelling, mass and lump, lower limb, bilateral Free T4 (Free Thyroxine) 3 Months R73.01 - Impaired fasting glucose, J45.990 - Exercise induced bronchospasm, E78.5 - Hyperlipidemia, unspecified, I10 - Essential (primary) hypertension, R22.43 - Localized swelling, mass and lump, lower limb, bilateral Referrals Vascular Surgery Referral R22.43 - Localized swelling, mass and lump, lower limb, bilateral, Z82.49 - Family history of ischemic heart disease and other diseases of the circulatory system Medications: New omega-3 fatty acids 1,250 mg PO BID 180 caps 5RF 3 months Changed From albuterol sulfate 90 mcg/actuation 2 puffs inhalation Q6H PRN 8.5 grams 1RF shortness of breath or wheezing To albuterol sulfate 90 mcg/actuation (ProAir HFA) 2 puffs inhalation Q6H PRN 3 inhalers 1RF shortness of breath or wheezing Coding Level of Care Code Est Pt Level 4 (95098) Diagnoses Localized swelling of both lower legs R22.43 Family history of peripheral vascular disease Z82.49 Impaired fasting glucose R73.01 Exercise induced bronchospasm J45.990 Dyslipidemia E78.5 Essential hypertension I10 Acquired hypothyroidism E03.9 Additional Codes CHARLOTTE-7 Assessment Billing - CHARLOTTE-7 Assessment Tool: CHARLOTTE-7 Assessment 72749 ([id number])
== END 2023-03-23 14:28 | disposition home or self-care (01) ==
PROVIDERS: PCP Internal Medicine; Visit Provider Internal Medicine
DX: R22.43 Localized swelling, mass and lump, lower limb, bilateral (principal); Z82.49 Family history of ischemic heart disease and other diseases of the circulatory system; R73.01 Impaired fasting glucose; J45.990 Exercise induced bronchospasm; E78.5 Hyperlipidemia, unspecified; I10 Essential (primary) hypertension; E03.9 Hypothyroidism, unspecified
CPT/HCPCS: 99214

== ENCOUNTER 2023-06-16 07:07 | Outpatient (REF) | payer MEDICARE, OTHER, SELFPAY ==
[2023-06-16 08:35] LABS: Estimated Average Glucose 120 mg/dL; Hemoglobin A1c % 5.8 % (<6.0)
[2023-06-16 09:11] LABS: Free T4 (Free Thyroxine) 0.92 ng/dL (0.71-1.85); Thyroid Stimulating Hormone 3.02 uIU/mL (0.32-4.0)
[2023-06-16 09:17] LABS: Alanine Aminotransferase 33 U/L (0-31); Anion Gap 16 (12-20); Aspartate Amino Transferase 19 U/L (5-31); Blood Urea Nitrogen 21 mg/dL (9-16); Calcium 10.2 mg/dL (8.4-10.2); Carbon Dioxide 27 mmol/L (22-29); Chloride 102 mmol/L (96-108); Cholesterol 231 mg/dL (<200); Estimated Glomerular Filt Rate > 60; Glucose Fasting 120 mg/dL (60-99); HDL Cholesterol 40 mg/dL (>40); LDL Cholesterol Calculated 153 mg/dL (<100); Potassium 3.8 mmol/L (3.3-5.1); Sodium 141 mmol/L (135-145); Triglycerides 190 mg/dL (<150)
== END 2023-06-16 07:08 | disposition home or self-care (01) ==
LOC: HO.LAB 07:07
PROVIDERS: PCP Internal Medicine; Visit Provider Internal Medicine
DX: R73.01 Impaired fasting glucose (principal); J45.990 Exercise induced bronchospasm; I10 Essential (primary) hypertension; R22.43 Localized swelling, mass and lump, lower limb, bilateral; E78.5 Hyperlipidemia, unspecified
CPT/HCPCS: 36415; 80048; 80061; 83036; 84439; 84443; 84450; 84460

== ENCOUNTER 2023-06-21 11:51 | Outpatient (AMB) | payer MEDICARE, OTHER, SELFPAY ==
[2023-06-21 12:00] VITALS: BP 125/80; PULSE 61; O2SAT 98; BMI 34.2
--- NOTE | 2023-06-21 12:00 | A.OFFPC_ITS ---
Vital Signs 06/21/23 12:00 Height 5 ft Weight 175 lb BMI 34.2 BP 125/80 Blood Pressure Location Rt brachial Position Sitting Pulse 61 Pulse Source Pulse Oximeter Pulse Oximetry (%) 98 Intake Visit Reasons: 3 month follow up Intake Note: pt is here for 3 month follow up Allergies amlodipine [From Lotrel] Allergy (Unknown, Verified 06/21/23 12:26) Rash benazepril [From Lotrel] Allergy (Unknown, Verified 06/21/23 12:26) Rash IVP dye Allergy (Unknown, Uncoded 06/21/23 12:26) rash Medication List - Last Reconciled 06/21/23 by Francesca Bass MD albuterol sulfate 90 mcg/actuation (ProAir HFA) 2 puffs inhalation Q6H PRN aspirin (Adult Low Dose Aspirin) 81 mg PO DAILY atorvastatin 40 mg PO DAILY cholecalciferol (vitamin D3) 25 mcg PO DAILY hydrochlorothiazide 12.5 mg PO QAM levothyroxine 50 mcg PO DAILY meloxicam 15 mg PO DAILY metoprolol succinate ER 100 mg PO DAILY omega-3 fatty acids 1,250 mg PO BID 3 months omeprazole 40 mg PO DAILY piroxicam 10 mg PO DAILY Tobacco use date assessed: 03/23/23 Fall risk assessment: No Falls in past year Last assessed Fall Risk: 06/21/23 Dental Screening Dental Screen Date: 03/23/23 HPI 3 month follow up HPI Details 68-year-old lady with hypertension, hype rlipidemia, impaired fasting glucose, acquired hypothyroidism, here today for follow-up. She has been compliant with taking her medications, currently on pravastatin 40 mg daily, h ydrochlorothiazide 12.5 mg daily, levothyroxine 50 mcg daily metoprolol succinate ER 100 mg daily, Ancona 3 fatty acid supplements, and aspirin 81 mg daily. Blood pressure has been stable and controlled and had recent fasting labs done which showed a hemoglobin A1c at 5.8%, serum electrolytes , renal function, liver enzymes, and thyroid levels within normal limit, but LDL cholesterol still remains elevated. Has been feeling well otherwise, with no complaints of chest pain, headache, lightheadedness, shortness of breath reported [facility] Medical History Family history of peripheral vascular disease Localized swelling of both lower legs Hearing impairment Tinnitus of both ears Intermittent lightheadedness Exercise induced bronchospasm Tick bite of right upper arm History of gallstones Impaired fasting glucose Acquired hypothyroidism Carpal tunnel syndrome Mild acquired hearing loss GERD (gastroesophageal reflux disease) Keratitis, herpetic Dyslipidemia Osteoarthritis of spine Essential hypertension Surgical History History of myomectomy History of carpal tunnel surgery Hx of cholecystectomy Family History Father Arthritis CVD (cardiovascular disease) Mother Arthritis HTN (hypertension) Non-insulin dependent diabetes mellitus History of CVA (cerebrovascular accident) Brother No problems noted. Sister No problems noted. Sister Mental health disorder Sister Ovarian cancer Tubular adenoma Sister Factor V Leiden Social History Housing: House Alcohol intake: current Alcohol intake frequency: holidays/special occasions only Patient Tobacco Use Status: Never used Tobacco e-Cigarette/Vaping Use: Never Used Current occupational status: retired Cognitive needs: No Hearing needs: No Vision needs: Yes Questionnaire Thrive Questionnaire Date Thrive assessed: 03/23/23 AUDIT C Alcohol Use Questionnaire (AUDIT-C) 1. How often do you have a drink containing alcohol?: Monthly or less 3. How often do you have six or more drinks on one occasion?: Never Total Score: 1 CHARLOTTE-7 AMB Questionnaire CHARLOTTE-7 Date CHARLOTTE - 7 assessed: 03/23/23 Source: Developed by Drs. Oni Quesada, Patrizia Bianchi, Andrew Head and colleagues, with an educational carter from [employer]. Review of Systems Const Denies fatigue, Denies fever(s), Denies headache(s) and Denies weakness Eyes Denies change in vision ENT Denies headache(s), Denies nasal congestion, Denies nasal discharge and Denies sore throat Card Denies chest pain, Denies lightheadedness and Denies palpitations Resp Denies chest congestion and Denies cough GI Denies abdominal pain, Denies change in bowel habits and Denies heartburn Denies urinary frequency, Denies dysuria and Denies urinary urgency Musc Denies abnormal gait, Denies myalgias and Reports stiffness Neuro Denies abnormal gait, Denies headache(s) and Denies weakness Endo Denies fatigue, Denies polydipsia, Denies polyuria and Denies palpitations Krishna/Lymph Denies easy bruising Aller/Immun Denies seasonal rhinorrhea Physical exam (Primary Care) Vital Signs: Last Vital Signs Pulse 61 06/21/23 12:00 BP 125/80 06/21/23 12:00 Pulse Ox 98 06/21/23 12:00 BMI result Body Mass Index 34.2 Tobacco/Smoking Status: Tobacco use Status Tobacco use date assessed 03/23/23 06/21/23 12:02 Patient Tobacco Use Status Never used Tobacco 06/21/23 12:02 e-Cigarette/Vaping Use Never Used 06/21/23 12:02 Thrive Assessment: Date of Thrive Assessment Date Thrive assessed 03/23/23 06/21/23 12:02 Const General: no acute distress and alert Orientation/consciousness: patient oriented x3 HENMT Head: Yes normocephalic Ears: external ears normal General nose exam: Normal external nose present Face and sinus: Yes face symmetric Mouth: Normal oral and palatal mucosa present and moist mucous membranes Eyes General: appearance normal, both eyes and all related structures Neck Other: Nonpalpable thyroid gland Neck: Yes full ROM, Yes no lymphadenopathy and Yes supple Resp Auscultation: clear to auscultation bilaterally Cardio Other: S1-S2 present regular rate and rhythm GI Other: Her bowel sounds, soft, nontender, with no mass palpated Skin General skin exam: no rashes or lesions noted Neuro General: patient oriented x3, gait normal, tone normal, moves all extremities, Normal light touch and pain sensation and no focal motor deficits Extrem General: Yes full ROM, Yes no joint enlargement, Yes no calf tenderness and Yes normal gait Results Reviewed Results Reviewed: Laboratory Tests 06/16/23 07:17 Estimat Average Glucose 120 Hemoglobin A1c % 5.8 Name: Melba Kline Age/Sex: 68/F : 1955 Unit#: [id number] Attend Dr: Francesca Bass MD Re06/16/23 Status: DEP [facility] SPEC : [id number] ANIA: 06/16/23 STATUS: COMP REQ : [id number] RECD: 06/16/[address]: Francesca Bass MD COMP: 06/16/23 ENTERED: 06/16/23 DR: ORDERED: Met Prof Fast, AST, ALT, Lipid Panel, Free T4, TSH Test Result Flag Reference Sodium 141 135-145 mmol/L Potassium 3.8 3.3-5.1 mmol/L CL 102 96-108 mmol/L CO2 27 22-29 mmol/L Gap 16 12-20 BUN 21 H 9-16 mg/dL Creat 0.79 0.5-1.4 mg/dL EGFR > 60 NOTE: For -Norwegian individuals, multiply the result by 1.210. Chronic Kidney Disease: Estimated GFR < 60 mL/min/1.73m2 Severe Kidney Disease: Estimated GFR < 15 mL/min/1.73m2 FBS 120 H 60-99 mg/dL A fasting glucose from 100-125 mg/dl is considered impa ired (pre-diabetes). CA 10.2 8.4-10.2 mg/dL AST (GOT) 19 5-31 U/L ALT (GPT) 33 H 0-31 U/L Triglyceride 190 H <150 mg/dL Desirable Triglyceride: less than 150 mg/dL Borderline High Triglyceride 150-199 mg/dL High Triglyceride: 200-499 mg/dL Very High Triglyceride: greater than or equal to 5OO mg/dL Cholesterol 231 H <200 mg/dL Desirable Cholesterol: less than 200 mg/dL Borderline High Cholesterol: 200-239 mg/dL High Cholesterol: greater than 239 mg/dL LDL Calculated 153 H <100 mg/dL Desirable LDL: less than 100 mg/dL Near Optimal/Above Optimal LDL: 110-129 mg/dL Borderline High LDL: 130-159 mg/dL High LDL: 160-189 mg/dL Very High LDL: greater than or equal to 190 mg/dL HDL 40 L >40 mg/dL Desirable HDL: greater than 40 mg/dL Note: This HDL assay may give artificially low results in patients with liver disease. Free T4 0.92 0.71-1.85 ng/dL TSH 3rd Gen. 3.02 0.32-4.0 uIU/mL Note: A sustained TSH level above 2.5 uIU/mL may warrant further investigation. TSH 3rd Generation ([facility]) Assessment and Plan Assessment & Plan (1) Impaired fasting glucose: Code(s): R73.01 - Impaired fasting glucose Plan: Hemoglobin A1c is within normal limits.. Impaired glucose metabolism increases risk for developing diabetes mellitus type 2, as well as heart attack and stroke later on. Lifestyle changes at just weight loss, healthy eating habits, and regular exercise are important, and can prevent the progression to diabetes (2) Acquired hypothyroidism: Code(s): E03.9 - Hypothyroidism, unspecified Plan: Thyroid levels within normal limits, continue with current dose of levothyroxine (3) Dyslipidemia: Code(s): E78.5 - Hyperlipidemia, unspecified Plan: Reviewed recent fasting lipid profile with patient with LDL cholesterol still elevated. . Increase atorvastatin dose to 80 mg daily, take Co Q10 together with this at least 100 mg daily , in addition to adherence to low-cholesterol diet and regular exercise, at least 30 minutes 3 to 4 times a week. Prescription sent for Ancona 3 fatty acid supplements to take 1 capsule twice a day Advised patient to make healthy food choices, eat more fruits, vegetables, whole grains, wild caught fish and low-fat dairy. Limit amount of meat and fried or fatty food products, as well as processed foods and fast foods. Follow-up scheduled with repeat fasting lipid panel in 3 months. (4) Essential hypertension: Code(s): I10 - Essential (primary) hypertension Plan: Blood pressure at goal of less than 130/80. Continue with current medication. Reinforced importance of following a low sodium diet, getting regular exercise, and lowering stress levels. Orders: Orders Alanine Aminotransferase 10/09/23 E03.9 - Hypothyroidism, unspecified, E78.5 - Hyperlipidemia, unspecified, I10 - Essential (primary) hypertension, R73.01 - Impaired fasting glucose Creatine Kinase Total 10/09/23 E03.9 - Hypothyroidism, unspecified, E78.5 - Hyperlipidemia, unspecified, I10 - Essential (primary) hypertension, R73.01 - Impaired fasting glucose Basic Metabolic Panel Fasting 10/09/23 E03.9 - Hypothyroidism, unspecified, E78.5 - Hyperlipidemia, unspecified, I10 - Essential (primary) hypertension, R73.01 - Impaired fasting glucose Aspartate Amino Transferase 10/09/23 E03.9 - Hypothyroidism, unspecified, E78.5 - Hyperlipidemia, unspecified, I10 - Essential (primary) hypertension, R73.01 - Impaired fasting glucose Lipid Panel 10/09/23 E03.9 - Hypothyroidism, unspecified, E78.5 - Hyperlipidemia, unspecified, I10 - Essential (primary) hypertension, R73.01 - Impaired fasting glucose Hemoglobin A1c 10/09/23 E03.9 - Hypothyroidism, unspecified, E78.5 - Hyperlipidemia, unspecified, I10 - Essential (primary) hypertension, R73.01 - Impaired fasting glucose Thyroid Stimulating Hormone 10/09/23 E03.9 - Hypothyroidism, unspecified, E78.5 - Hyperlipidemia, unspecified, I10 - Essential (primary) hypertension, R73.01 - Impaired fasting glucose Free T4 (Free Thyroxine) 10/09/23 E03.9 - Hypothyroidism, unspecified, E78.5 - Hyperlipidemia, unspecified, I10 - Essential (primary) hypertension, R73.01 - Impaired fasting glucose Medications: New omega-3 acid ethyl esters (Lovaza) 1 cap PO BID 3 months 180 caps 4RF Changed From atorvastatin 40 mg PO DAILY 90 tabs 3RF To atorvastatin 80 mg PO DAILY 3 months 90 tabs 3RF Coding Level of Care Code Est Pt Level 4 (38964) Diagnoses Impaired fasting glucose R73.01 Acquired hypothyroidism E03.9 Dyslipidemia E78.5 Essential hypertension I10
== END 2023-06-21 15:26 | disposition home or self-care (01) ==
PROVIDERS: PCP Internal Medicine; Visit Provider Internal Medicine
DX: R73.01 Impaired fasting glucose (principal); E03.9 Hypothyroidism, unspecified; E78.5 Hyperlipidemia, unspecified; I10 Essential (primary) hypertension
CPT/HCPCS: 99214

== ENCOUNTER 2023-07-12 13:50 | Outpatient (REF) | payer MEDICARE, OTHER, SELFPAY ==
--- NOTE | ~2023-07-12 | MM_ITS ---
EXAMINATION: BONE DENSITOMETRY CLINICAL INDICATION: Asymptomatic postprocedural ovarian failure. COMPARISON: Previous BD dated 12/28/2019 and baseline BD dated 04/11/2008. TECHNIQUE: Using a disco volante DXA System (software version: 13.1) manufactured by [employer], dual-energy x-ray absorptiometry was performed of the lumbar spine and left hip. The images are of good technical quality. Summary results are attached. FINDINGS: AP SPINE L1-L2 (excluding L3 and L4): The data of L1-L4 has been changed to exclude the L3 and L4 vertebral bodies, because degenerative sclerosis at these levels may cause overestimation of lumbar spine density. Current: BMD 1.155 g/cm2, Z-score 1.1, T-score -0.1, normal, 2.2% decrease from previous, 2.5% decrease from baseline (<5% change is not significant). Prior: BMD 1.181 g/cm2. Baseline: BMD 1.185 g/cm2. LEFT FEMUR, NECK: Current: BMD 0.921 g/cm2, Z-score 0.5, T-score -0.8, normal. Prior: BMD 0.937 g/cm2. Baseline: BMD 0.957 g/cm2. LEFT FEMUR, TOTAL: Current: BMD 1.086 g/cm2, Z-score 1.7, T-score 0.6, normal, 2.3% decrease from previous, 0.5% increase from baseline (<5% change is not significant). Prior: BMD 1.112 g/cm2. Baseline: BMD 1.081 g/cm2. IDENTIFIED RISK FACTORS: Menopause. Thiazide. HISTORY OF FRACTURE: None listed. MEDICATIONS: Calcium supplement and/or multivitamin. Vitamin D. MM/XR DEXA axial skeleton IMPRESSION: 1. DIAGNOSIS: Normal bone density based on the lowest T-score value of -0.8 in the femoral neck applying World Health Organization criteria. 2. 10-YEAR FRACTURE RISK PREDICTION, FRAX: According to the guidelines, FRAX calculation should only be performed on patients in the osteopenia bone density category.?Therefore, FRAX was not performed on this patient.? 3. Treatment Recommendations: NOF guidelines recommend consideration for treatment in postmenopausal women and men age 50 and older presenting with the following: -A hip or vertebral (clinical or morphometric) fracture. -T-score less than or equal to -2.5 at the femoral neck or spine after appropriate evaluation to exclude secondary causes. -Low bone mass at the hip or spine and a 10-year fracture probability by FRAX of greater than or equal to 3% for hip fracture or greater than or equal to 20% for major osteoporotic fracture based on the [place] adapted WHO algorithm. 4. Other Recommendations: All treatment decisions require clinical judgment and consideration of individual patient factors, including patient preferences, comorbidities, previous drug use, risk factors not captured in the FRAX model (e.g. frailty, falls, vitamin D deficiency, increased bone turnover, interval significant decline in bone density) and possible under or overestimation of fracture risk by FRAX. FUTURE SCAN RECOMMENDATION: People with diagnosed cases of osteoporosis or at high risk for fracture should have regular bone mineral density tests. For patients eligible for Medicare, routine testing is allowed once every 2 years. The testing frequency can be increased to one year for patients who have rapidly progressing disease, those who are receiving or discontinuing medical therapy to restore bone mass, or have additional risk factors.
== END 2023-07-12 13:51 | disposition home or self-care (01) ==
LOC: HO.MAMMO 13:50
PROVIDERS: PCP Internal Medicine; Visit Provider Internal Medicine
DX: Z12.31 Encounter for screening mammogram for malignant neoplasm of breast (principal); Z13.820 Encounter for screening for osteoporosis; Z78.0 Asymptomatic menopausal state
CPT/HCPCS: 77063; 77067; 77080

== ENCOUNTER → 2023-07-12 14:30 | Outpatient (BNV) | payer MEDICARE, OTHER, SELFPAY | PROVIDERS: PCP Internal Medicine; Visit Provider Radiology Diagnostic Radiology | DX: Z12.31 Encounter for screening mammogram for malignant neoplasm of breast (principal) | CPT/HCPCS: 77063; 77067 ==

== ENCOUNTER 2023-10-05 08:04 | Outpatient (AMB) | payer MEDICARE, OTHER, SELFPAY ==
--- NOTE | 2023-10-05 08:05 | MHC.OFFWIV ---
Intake Vital Signs 10/05/23 08:06 Height 5 ft Weight 183 lb BMI 35.7 BP 132/90 H Blood Pressure Location Lt brachial Position Sitting Pulse 71 Pulse Source Pulse Oximeter Pulse Oximetry (%) 97 Oxygen Delivery Method Room Air Intake Visit Reasons: EP ?UTI Intake Note: Patient here for UTI frequent urination and pressure since yesterday Patient Tobacco Use Status: Never used Tobacco Allergies amlodipine [From Lotrel] Allergy (Unknown, Verified 10/05/23 08:07) Rash benazepril [From Lotrel] Allergy (Unknown, Verified 10/05/23 08:07) Rash IVP dye Allergy (Unknown, Uncoded 10/05/23 08:07) rash Do you need a note to return to daycare/school/sports/work: No HPI HPI Comments History of Present Illness Details Patient is a 68-year-old female complaining of 3 days of bladder pressure and low back pain and increased frequency of urination. She denies any blood in her urine or history of kidney stones or fevers PFSH Medical History Family history of peripheral vascular disease Localized swelling of both lower legs Hearing impairment Tinnitus of both ears Intermittent lightheadedness Exercise induced bronchospasm Tick bite of right upper arm History of gallstones Impaired fasting glucose Acquired hypothyroidism Carpal tunnel syndrome Mild acquired hearing loss GERD (gastroesophageal reflux disease) Keratitis, herpetic Dyslipidemia Osteoarthritis of spine Essential hypertension Surgical History History of myomectomy History of carpal tunnel surgery Hx of cholecystectomy Family History Father Arthritis CVD (cardiovascular disease) Mother Arthritis HTN (hypertension) Non-insulin dependent diabetes mellitus History of CVA (cerebrovascular accident) Brother No problems noted. Sister No problems noted. Sister Mental health disorder Sister Ovarian cancer Tubular adenoma Sister Factor V Leiden Social History Housing: House Alcohol intake: current Alcohol intake frequency: holidays/special occasions only Patient Tobacco Use Status: Never used Tobacco e-Cigarette/Vaping Use: Never Used Current occupational status: retired Cognitive needs: No Hearing needs: No Vision needs: Yes Review of Systems Const All systems reviewed & are unremarkable except as noted in HPI and below Physical Exam Vital Signs: Last Vital Signs Pulse 71 10/05/23 08:06 BP 132/90 H 10/05/23 08:06 Pulse Ox 97 10/05/23 08:06 Oxygen Delivery Method Room Air 10/05/23 08:06 BMI result Body Mass Index 35.7 Const General: cooperative, healthy appearing, comfortable, no acute distress and well developed Orientation/consciousness: patient oriented x3 Limitations: no limitations HEENT Head: Yes normal to inspection Ears: hearing grossly normal bilaterally General nose exam: Normal external nose present Face and sinus: Yes normal facial exam Eyes General: appearance normal, both eyes and all related structures Neck Neck: Yes normal visual inspection and Yes full ROM Resp Effort & Inspection: normal respiratory effort and able to speak in complete sentences Skin General skin exam: no rashes or lesions noted Neuro General: patient oriented x3 Extrem General: Yes normal to inspection Assessment & Plan Assessment & Plan (1) UTI (urinary tract infection): Code(s): N39.0 - Urinary tract infection, site not specified Qualifiers: Urinary tract infection type: acute cystitis Hematuria presence: with hematuria Qualified Code(s): N30.01 - Acute cystitis with hematuria Plan: UA positive for leukocyte esterase and blood, protein and bilirubin. Sent antibiotics to pharmacy, gave red flag warning signs and when to go to the emergency department. Plan See above Medications: New cefuroxime axetil 500 mg PO Q12H 10 tabs 0RF Coding Level of Care Code Est Pt Level 3 (57265) Diagnoses Acute cystitis with hematuria N30.01 Urinary tract infection type: acute cystitis Hematuria presence: with hematuria
[2023-10-05 08:06] VITALS: BP 132/90; PULSE 71; O2SAT 97; BMI 35.7
== END 2023-10-05 08:47 | disposition home or self-care (01) ==
PROVIDERS: PCP Internal Medicine; Visit Provider Physician Assistant
DX: N30.01 Acute cystitis with hematuria (principal); Z13.9 Encounter for screening, unspecified
CPT/HCPCS: 81003; 99213

== ENCOUNTER 2023-11-07 09:16 | Outpatient (REF) | payer MEDICARE, OTHER, SELFPAY ==
[2023-11-07 10:50] LABS: Estimated Average Glucose 123 mg/dL; Hemoglobin A1c % 5.9 % (<6.0)
[2023-11-07 11:11] LABS: Alanine Aminotransferase 44 U/L (0-31); Anion Gap 12 (12-20); Aspartate Amino Transferase 21 U/L (5-31); Blood Urea Nitrogen 17 mg/dL (9-16); Calcium 9.8 mg/dL (8.4-10.2); Carbon Dioxide 28 mmol/L (22-29); Chloride 106 mmol/L (96-108); Cholesterol 234 mg/dL (<200); Estimated Glomerular Filt Rate > 60; Free T4 (Free Thyroxine) 1.01 ng/dL (0.71-1.85); Glucose Fasting 131 mg/dL (60-99); HDL Cholesterol 43 mg/dL (>40); LDL Cholesterol Calculated 154 mg/dL (<100); Potassium 3.8 mmol/L (3.3-5.1); Sodium 142 mmol/L (135-145); Thyroid Stimulating Hormone 1.77 uIU/mL (0.32-4.0); Triglycerides 186 mg/dL (<150)
== END 2023-11-07 09:17 | disposition home or self-care (01) ==
LOC: HO.LAB 09:16
PROVIDERS: PCP Internal Medicine; Visit Provider Internal Medicine
DX: I10 Essential (primary) hypertension (principal); E78.5 Hyperlipidemia, unspecified; E03.9 Hypothyroidism, unspecified; R73.01 Impaired fasting glucose
CPT/HCPCS: 36415; 80048; 80061; 82550; 83036; 84439; 84443; 84450; 84460

== ENCOUNTER 2023-11-08 13:42 | Outpatient (AMB) | payer MEDICARE, OTHER, SELFPAY ==
[2023-11-08 14:21] VITALS: BP 130/80; PULSE 65; O2SAT 96; BMI 35.7
--- NOTE | 2023-11-08 14:21 | MHC.PC.OV ---
Vital Signs 11/08/23 14:21 Height 5 ft Weight 183 lb BMI 35.7 BP 130/80 Blood Pressure Location Lt brachial Position Sitting Pulse 65 Pulse Source Pulse Oximeter Pulse Oximetry (%) 96 Oxygen Delivery Method Room Air Intake Visit Reasons: Results labwork/medications Intake Note: Pt is here today for her f/u labs/ medication Allergies amlodipine [From Lotrel] Allergy (Unknown, Verified 11/14/23 01:31) Rash benazepril [From Lotrel] Allergy (Unknown, Verified 11/14/23 01:31) Rash IVP dye Allergy (Unknown, Uncoded 11/14/23 01:31) rash Medication List - Last Reconciled 11/14/23 by Francesca Bass MD albuterol sulfate 90 mcg/actuation (ProAir HFA) 2 puffs inhalation Q6H PRN aspirin (Adult Low Dose Aspirin) 81 mg PO DAILY atorvastatin 80 mg PO DAILY 3 months cholecalciferol (vitamin D3) 25 mcg PO DAILY hydrochlorothiazide 12.5 mg PO QAM levothyroxine 50 mcg PO DAILY magnesium oxide 250 mg PO DAILY metoprolol succinate ER 100 mg PO DAILY omeprazole 40 mg PO DAILY piroxicam 10 mg PO DAILY Tobacco use date assessed: 11/08/23 Fall risk assessment: No Falls in past year Last assessed Fall Risk: 11/08/23 Dental Screening Dental Screen Date: 11/08/23 Did you have a dental visit in the last 12 months?: Yes Did you have a dental problem in the last 6 months where you did not have access to dental care?: No Was dental information given to patient?: Patient has dentist HPI Results labwork/medications HPI Details 68-year-old lady with hyperlipidemia, hypothyroidism, osteoarthritis and hypertension, here today for follow-up. She has been feeling well, with no complaints at present time. Has been taking her medications as directed [facility] Medical History Family history of peripheral vascular disease Localized swelling of both lower legs Hearing impairment Tinnitus of both ears Intermittent lightheadedness Exercise induced bronchospasm Tick bite of right upper arm History of gallstones Impaired fasting glucose Acquired hypothyroidism Carpal tunnel syndrome Mild acquired hearing loss GERD (gastroesophageal reflux disease) Keratitis, herpetic Dyslipidemia Osteoarthritis of spine Essential hypertension Surgical History History of myomectomy History of carpal tunnel surgery Hx of cholecystectomy Family History Father Arthritis CVD (cardiovascular disease) Mother Arthritis HTN (hypertension) Non-insulin dependent diabetes mellitus History of CVA (cerebrovascular accident) Brother No problems noted. Sister No problems noted. Sister Mental health disorder Sister Ovarian cancer Tubular adenoma Sister Factor V Leiden Social History Housing: House Alcohol intake: current Alcohol intake frequency: holidays/special occasions only Patient Tobacco Use Status: Never used Tobacco e-Cigarette/Vaping Use: Never Used Current occupational status: retired Cognitive needs: No Hearing needs: No Vision needs: Yes Questionnaire PHQ-9 Over the last 2 weeks, how often have you been bothered by any of the following problems? 1. Little interest or pleasure in doing things: not at all 2. Feeling down, depressed, or hopeless: not at all 3. Trouble falling or staying asleep, or sleeping too much: not at all 4. Feeling tired or having little energy: not at all 5. Poor appetite or overeating: several days 6. Feeling bad about yourself - or that you are a failure or have let yourself or your family down: not at all 7. Trouble concentrating on things, such as reading the newspaper or watching television: not at all 8. Moving or speaking so slowly that other people could have noticed. Or the opposite - being so fidgety or restless that you have been moving around a lot more than usual: not at all 9. Thoughts that you would be better off or of hurting yourself in some way: not at all Total score: 1 Depression Screening Interpretation: Negative Depression Screening Done: Yes 71152 - PHQ-9 Billing: Yes Source: Developed by Drs. Oni Quesada, Patrizia Bianchi, Andrew Head and colleagues, with an educational carter from [employer]. Thrive Questionnaire Date Thrive assessed: 11/08/23 I am a: Patient What is your living situation today?: I have a steady place to live Within the past 12 months, did the food you bought not last and you didn't have the money to get more?: Never true Within the past 12 months, did you worry whether your food would run out before you got money to buy more?: Never true Do you have trouble paying for medicines?: No Do you have trouble getting transportation to medical appointments?: No Do you have trouble paying your heating and electricity bill?: No Do you have trouble taking care of your child, family member or friend?: No Do you have trouble with day-to-day activities such as bathing, preparing meals, shopping, managing finances, etc.?: No Are you interested in more education?: No Please select the resources that you would like help with: None Currently or been in a relationship where the following occur: No concerns reported THRIVE Score: 0 AUDIT C Alcohol Use Questionnaire (AUDIT-C) 1. How often do you have a drink containing alcohol?: Monthly or less 2. How many drinks containing alcohol do you have on a typical day when you are drinking?: 1 or 2 3. How often do you have six or more drinks on one occasion?: Never Total Score: 1 CHARLOTTE-7 AMB Questionnaire CHARLOTTE-7 Date CHARLOTTE - 7 assessed: 11/08/23 Feeling nervous, anxious, or on edge: 0 = Not at all Not being able to stop or control worryin = Not at all Worrying too much about different things: 0 = Not at all Trouble relaxin = Not at all Being so restless that it is hard to sit still: 0 = Not at all Becoming easily annoyed or irritable: 0 = Not at all Feeling afraid as if something awful might happen: 0 = Not at all Total CHARLOTTE-7 score (0-4 normal; 5-9 mild; 10-14 moderate; 15-21 severe): 0 Source: Developed by Drs. Oni Quesada, Patrizia Bianchi, Andrew Head and colleagues, with an educational carter from [employer]. CHARLOTTE-7 Assessment Billing CHARLOTTE-7 Assessment Tool: CHARLOTTE-7 Assessment 90688 Review of Systems Const Denies fatigue, Denies fever(s), Denies headache(s) and Denies weakness Eyes Denies change in vision ENT Denies headache(s), Denies nasal congestion, Denies nasal discharge and Denies sore throat Card Denies chest pain, Denies lightheadedness and Denies palpitations Resp Denies chest congestion and Denies cough GI Denies abdominal pain, Denies change in bowel habits and Denies heartburn Denies urinary frequency, Denies dysuria and Denies urinary urgency Musc Denies abnormal gait, Denies myalgias and Reports stiffness Neuro Denies abnormal gait, Denies headache(s) and Denies weakness Endo Denies fatigue, Denies polydipsia, Denies polyuria and Denies palpitations Krishna/Lymph Denies easy bruising Aller/Immun Denies seasonal rhinorrhea Physical exam (Primary Care) Vital Signs: Last Vital Signs Pulse 65 11/08/23 14:21 BP 130/80 11/08/23 14:21 Pulse Ox 96 11/08/23 14:21 Oxygen Delivery Method Room Air 11/08/23 14:21 BMI result Body Mass Index 35.7 Tobacco/Smoking Status: Tobacco use Status Tobacco use date assessed 11/08/23 11/08/23 14:26 Patient Tobacco Use Status Never used Tobacco 11/08/23 14:26 e-Cigarette/Vaping Use Never Used 11/08/23 14:26 PHQ-9: PHQ-9 Score PHQ-9: Total score 1 11/08/23 14:28 Depression Screening Interpretation: Negative Thrive Assessment: Date of Thrive Assessment Date Thrive assessed 11/08/23 11/08/23 14:26 Currently or been in a relationship where the following occur: No concerns reported Const General: no acute distress and alert Orientation/consciousness: patient oriented x3 HENMT Head: Yes normocephalic Ears: external ears normal General nose exam: Normal external nose present Face and sinus: Yes face symmetric Mouth: Normal oral and palatal mucosa present and moist mucous membranes Eyes General: appearance normal, both eyes and all related structures Neck Other: Nonpalpable thyroid gland Neck: Yes full ROM, Yes no lymphadenopathy and Yes supple Resp Auscultation: clear to auscultation bilaterally Cardio Other: S1-S2 present regular rate and rhythm GI Other: Her bowel sounds, soft, nontender, with no mass palpated Skin General skin exam: no rashes or lesions noted Neuro General: patient oriented x3, gait normal, tone normal, moves all extremities, Normal light touch and pain sensation and no focal motor deficits Extrem General: Yes full ROM, Yes no joint enlargement, Yes no calf tenderness and Yes normal gait Results Reviewed Results Reviewed: Laboratory Tests 11/07/23 09:32 Estimat Average Glucose 123 Hemoglobin A1c % 5.9 edwin: Melba Kline Age/Sex: 68/F : 1955 Unit#: [id number] Attend Dr: Francesca Bass MD Re11/07/23 Status: DEP [facility] Disch: SPEC : [id number] ANIA: 11/07/23 STATUS: COMP REQ : [id number] RECD: 11/07/[address]: Francesca Bass MD COMP: 11/07/23 ENTERED: 11/07/[address] [facility] [address]: ORDERED: Met Prof Fast, AST, ALT, CK Total, Lipid Panel, Free T4, TSH Test Result Flag Reference Sodium 142 135-145 mmol/L Potassium 3.8 3.3-5.1 mmol/L CL 106 96-108 mmol/L CO2 28 22-29 mmol/L Gap 12 12-20 BUN 17 H 9-16 mg/dL Creat 0.74 0.5-1.4 mg/dL EGFR > 60 NOTE: For -British individuals, multiply the result by 1.210. Chronic Kidney Disease: Estimated GFR < 60 mL/min/1.73m2 Severe Kidney Disease: Estimated GFR < 15 mL/min/1.73m2 FBS 131 H 60-99 mg/dL A fasting glucose of 126 mg/dl or greater on more than one occasion is considered diagnostic of diabetes. CA 9.8 8.4-10.2 mg/dL AST (GOT) 21 5-31 U/L ALT (GPT) 44 H 0-31 U/L CK Total 69 26-140 U/L Triglyceride 186 H <150 mg/dL Desirable Triglyceride: less than 150 mg/dL Borderline High Triglyceride 150-199 mg/dL High Triglyceride: 200-499 mg/dL Very High Triglyceride: greater than or equal to 5OO mg/dL Cholesterol 234 H <200 mg/dL Desirable Cholesterol: less than 200 mg/dL Borderline High Cholesterol: 200-239 mg/dL High Cholesterol: greater than 239 mg/dL LDL Calculated 154 H <100 mg/dL Desirable LDL: less than 100 mg/dL Near Optimal/Above Optimal LDL: 110-129 mg/dL Borderline High LDL: 130-159 mg/dL High LDL: 160-189 mg/dL Very High LDL: greater than or equal to 190 mg/dL HDL 43 >40 mg/dL Desirable HDL: greater than 40 mg/dL Note: This HDL assay may give artificially low results in patients with liver disease. Free T4 1.01 0.71-1.85 ng/dL TSH 3rd Gen. 1.77 0.32-4.0 uIU/mL TSH 3rd Generation ([facility]) Assessment and Plan Assessment & Plan (1) Essential hypertension: Code(s): I10 - Essential (primary) hypertension Plan: Blood pressure stable controlled on present treatment, will continue on metoprolol succinate ER 100 mg once a day, hydrochlorothiazide 12.5 mg in am , reinforced importance of following low-salt diet and managing stress levels (2) Dyslipidemia: Code(s): E78.5 - Hyperlipidemia, unspecified Plan: Latest fasting lipids showed elevated LDL cholesterol continue atorvastatin 80 mg daily, encouraged patient to start getting some form of exercise on a regular basis, and adherence to a low-cholesterol diet was stressed. (3) Acquired hypothyroidism: Code(s): E03.9 - Hypothyroidism, unspecified Plan: Higher levels are within normal limits, continue with levothyroxine 50 mcg daily in a.m. (4) Impaired fasting glucose: Code(s): R73.01 - Impaired fasting glucose Plan: Your previous fasting blood sugars were elevated above 100 mg/dL. Impaired glucose metabolism increases the risk for developing diabetes mellitus type 2, as well as heart attack and stroke later on. Lifestyle changes that promotes weight loss, healthy eating habits, and regular exercise are important, and can prevent the progression to diabetes (5) Muscle cramps: Code(s): R25.2 - Cramp and spasm Plan: Try magnesium oxide 250 mg taken once at night Orders: Orders Comprehensive [place]. Panel Fast 01/07/24 E03.9 - Hypothyroidism, unspecified, E78.5 - Hyperlipidemia, unspecified, I10 - Essential (primary) hypertension, R25.2 - Cramp and spasm, R73.01 - Impaired fasting glucose Complete Blood Count Auto Diff 01/07/24 E03.9 - Hypothyroidism, unspecified, E78.5 - Hyperlipidemia, unspecified, I10 - Essential (primary) hypertension, R25.2 - Cramp and spasm, R73.01 - Impaired fasting glucose Lipid Panel 01/07/24 E03.9 - Hypothyroidism, unspecified, E78.5 - Hyperlipidemia, unspecified, I10 - Essential (primary) hypertension, R25.2 - Cramp and spasm, R73.01 - Impaired fasting glucose Hemoglobin A1c 01/07/24 E03.9 - Hypothyroidism, unspecified, E78.5 - Hyperlipidemia, unspecified, I10 - Essential (primary) hypertension, R25.2 - Cramp and spasm, R73.01 - Impaired fasting glucose Vitamin D 25-OH Total 01/07/24 E03.9 - Hypothyroidism, unspecified, E78.5 - Hyperlipidemia, unspecified, I10 - Essential (primary) hypertension, R25.2 - Cramp and spasm, R73.01 - Impaired fasting glucose Vitamin B12 and Folate 01/07/24 E03.9 - Hypothyroidism, unspecified, E78.5 - Hyperlipidemia, unspecified, I10 - Essential (primary) hypertension, R25.2 - Cramp and spasm, R73.01 - Impaired fasting glucose Thyroid Stimulating Hormone 01/07/24 E03.9 - Hypothyroidism, unspecified, E78.5 - Hyperlipidemia, unspecified, I10 - Essential (primary) hypertension, R25.2 - Cramp and spasm, R73.01 - Impaired fasting glucose Free T4 (Free Thyroxine) 01/07/24 E03.9 - Hypothyroidism, unspecified, E78.5 - Hyperlipidemia, unspecified, I10 - Essential (primary) hypertension, R25.2 - Cramp and spasm, R73.01 - Impaired fasting glucose Magnesium 01/07/24 R25.2 - Cramp and spasm Medications: New magnesium oxide 250 mg PO DAILY 30 tabs 0RF Coding Level of Care Code Est Pt Level 4 (20827) Complex EM visit Add On G2211 Diagnoses Essential hypertension I10 Dyslipidemia E78.5 Acquired hypothyroidism E03.9 Impaired fasting glucose R73.01 Muscle cramps R25.2 Additional Codes CHARLOTTE-7 Assessment Billing - CHARLOTTE-7 Assessment Tool: CHARLOTTE-7 Assessment [id number] ([id number])
== END 2023-11-08 16:48 | disposition home or self-care (01) ==
PROVIDERS: PCP Internal Medicine; Visit Provider Internal Medicine
DX: I10 Essential (primary) hypertension (principal); E78.5 Hyperlipidemia, unspecified; E03.9 Hypothyroidism, unspecified; R73.01 Impaired fasting glucose; R25.2 Cramp and spasm

== ENCOUNTER → 2023-11-08 13:42 | Outpatient (BNVA) | payer MEDICARE, OTHER, SELFPAY | PROVIDERS: PCP Internal Medicine; Visit Provider Internal Medicine | DX: I10 Essential (primary) hypertension (principal); E78.5 Hyperlipidemia, unspecified; E03.9 Hypothyroidism, unspecified; R73.01 Impaired fasting glucose; R25.2 Cramp and spasm | CPT/HCPCS: 96127; 99212 ==

== ENCOUNTER 2023-12-26 07:55 | Outpatient (REF) | payer MEDICARE, OTHER, SELFPAY ==
[2023-12-26 08:36] LABS: Hematocrit 41.7 % (37.0-47.0); Hemoglobin 14.1 g/dl (12.0-16.0); Mean Corpuscular HGB Conc 33.8 g/dl (31.0-35.0); Mean Corpuscular Hemoglobin 30.7 pg (27.0-33.0); Mean Corpuscular Volume 90.7 fL (80.0-98.0); Mean Platelet Volume 9.9 fL (9.4-12.3); Platelet Count 214 X10*3/uL (160-400); Red Cell Distribution Width 12.8 % (11.0-16.0)
[2023-12-26 08:56] LABS: Estimated Average Glucose 126 mg/dL; Hemoglobin A1C 159.7535 umol/L; Total Hemoglobin (HGBA1C) 3778.8929 umol/L
[2023-12-26 08:59] LABS: SLIDE REVIEW MANUAL DIFF
[2023-12-26 09:23] LABS: Alanine Aminotransferase 40 U/L (0-31); Albumin Level 4.3 g/dL (3.5-5.0); Alkaline Phosphatase 61 U/L (39-117); Anion Gap 13 (12-20); Aspartate Amino Transferase 23 U/L (5-31); Bilirubin Total 0.5 mg/dL (0.0-1.0); Blood Urea Nitrogen 15 mg/dL (9-16); Calcium 9.3 mg/dL (8.4-10.2); Carbon Dioxide 27 mmol/L (22-29); Chloride 104 mmol/L (96-108); Cholesterol 219 mg/dL (<200); Estimated Glomerular Filt Rate > 60; Glucose Fasting 133 mg/dL (60-99); HDL Cholesterol 42 mg/dL (>40); LDL Cholesterol Calculated 131 mg/dL (<100); Magnesium 2.1 mg/dL (1.6-2.6); Potassium 3.9 mmol/L (3.3-5.1); Sodium 140 mmol/L (135-145); Total Protein 7.2 g/dL (6.5-8.0); Triglycerides 232 mg/dL (<150)
[2023-12-26 09:33] LABS: Free T4 (Free Thyroxine) 1.05 ng/dL (0.71-1.85); Thyroid Stimulating Hormone 2.23 uIU/mL (0.32-4.0); Vitamin D 25-OH Total 52.7 ng/mL (>30)
[2023-12-26 09:49] LABS: Folate 15.3 ng/mL (> or = 4.0); Vitamin B12 649 pg/mL (200-900)
[2023-12-26 10:23] LABS: Band Neutrophils Percent 0 % (3-5); Eosinophils Absolute Manual 0.2 X10*3/uL (0.0-0.4); Eosinophils Percent Manual 2 % (0-4); Lymphocytes Absolute Manual 6.2 X10*3/uL (1.2-4.9); Lymphocytes Percent Manual 62 % (20-40); Monocytes Absolute Manual 0.2 X10*3/uL (0.1-1.2); Monocytes Percent Manual 2 % (2-11); Neutrophils Absolute Manual 3.4 X10*3/uL (2.0-8.3); Neutrophils Percent Manual 34 % (45-73); Platelet Estimate NORMAL (NORMAL); Platelet Morphology Comment NORMAL; RBC Morphology NORMAL; Smudge Cells PRESENT
== END 2023-12-26 07:56 | disposition home or self-care (01) ==
LOC: HO.LAB 07:55
PROVIDERS: PCP Internal Medicine; Visit Provider Internal Medicine
DX: E03.9 Hypothyroidism, unspecified (principal); R73.01 Impaired fasting glucose; E78.5 Hyperlipidemia, unspecified; I10 Essential (primary) hypertension; R25.2 Cramp and spasm
CPT/HCPCS: 36415; 80053; 80061; 82306; 82607; 82746; 83036; 83735; 84439; 84443; 85007; 85025; 85027

== ENCOUNTER 2024-01-03 08:03 | Outpatient (AMB) | payer MEDICARE, OTHER, SELFPAY ==
[2024-01-03 08:07] VITALS: BP 140/74; PULSE 74; O2SAT 98; BMI 35.3
--- NOTE | 2024-01-03 08:07 | A.OFFPC_ITS ---
Vital Signs 01/03/24 08:07 Height 5 ft Weight 181 lb BMI 35.3 BP 140/74 H Blood Pressure Location Lt brachial Position Sitting Pulse 74 Pulse Source Pulse Oximeter Pulse Oximetry (%) 98 Oxygen Delivery Method Room Air Intake Visit Reasons: Follow up -Blood Work- Glucose Intake Note: Pt is here today for her lab results Allergies amlodipine [From Lotrel] Allergy (Unknown, Verified 01/03/24 08:11) Rash benazepril [From Lotrel] Allergy (Unknown, Verified 01/03/24 08:11) Rash IVP dye Allergy (Unknown, Uncoded 01/03/24 08:11) rash Medication List - Last Reconciled 01/03/24 by Francesca Bass MD albuterol sulfate 90 mcg/actuation (ProAir HFA) 2 puffs inhalation Q6H PRN aspirin (Adult Low Dose Aspirin) 81 mg PO DAILY atorvastatin 80 mg PO DAILY 3 months cholecalciferol (vitamin D3) 25 mcg PO DAILY hydrochlorothiazide 12.5 mg PO QAM levothyroxine 50 mcg PO DAILY magnesium oxide 250 mg PO DAILY metoprolol succinate ER 100 mg PO DAILY omeprazole 40 mg PO DAILY piroxicam 10 mg PO DAILY Tobacco use date assessed: 01/03/24 Fall risk assessment: No Falls in past year Last assessed Fall Risk: 01/03/24 Dental Screening Dental Screen Date: 01/03/24 Did you have a dental visit in the last 12 months?: Yes Did you have a dental problem in the last 6 months where you did not have access to dental care?: No Was dental information given to patient?: Patient has dentist HPI Follow up -Blood Work- Glucose HPI Details The patient is a 68-year-old female presenting with a focus on follow-up for chronic health conditions, primarily hypothyroidism, hyperlipidemia, and glucose regulation. Hypothyroidism has been stable, with recent thyroid levels remaining within normal limits. Hyperlipidemia management includes atorvastatin, recently increased due to elevated LDL cholesterol, which has since decreased by 20 points. However, triglycerides have risen from 186 to 232. The patient's fasting glucose level is 133 mg/dL, and recent labs indicate an HbA1c increase from 5.9% to 6.0%. Additionally, the patient is managing knee problems, characterized by pain and limited mobility. This involves a history of meniscal tear and presence of a Gill's cyst, affecting range of motion. The patient reports awaiting physical therapy starting January 15. Diagnostic findings show a notably elevated lymphocyte percentage at 62%, up from 40%, with smudge cells observed, indicative of possible reactive lymphocytosis, warranting a referral to hematology for further evaluation. There is also a family history of severe anemia, particularly among siblings, prompting further investigation into hematologic health. FOR[facility] Medical History (Updated 01/03/24 @ 09:03 by Francesca Bass MD) Nocturnal leg cramps Lymphocytosis Family history of peripheral vascular disease Hearing impairment Tinnitus of both ears Intermittent lightheadedness Exercise induced bronchospasm Tick bite of right upper arm History of gallstones Impaired fasting glucose Acquired hypothyroidism Carpal tunnel syndrome Mild acquired hearing loss GERD (gastroesophageal reflux disease) Keratitis, herpetic Dyslipidemia Osteoarthritis of spine Essential hypertension Surgical History History of myomectomy History of carpal tunnel surgery Hx of cholecystectomy Family History (Updated 01/04/24 @ 00:03 by Francesca Bass MD) Father Arthritis CVD (cardiovascular disease) Mother Arthritis HTN (hypertension) Non-insulin dependent diabetes mellitus History of CVA (cerebrovascular accident) Brother No problems noted. Sister No problems noted. Sister Mental health disorder Sister Ovarian cancer Tubular adenoma Anemia Sister Factor V Leiden Anemia Social History Housing: House Alcohol intake: current Alcohol intake frequency: holidays/special occasions only Patient Tobacco Use Status: Never used Tobacco e-Cigarette/Vaping Use: Never Used Current occupational status: retired Cognitive needs: No Hearing needs: No Vision needs: Yes Questionnaire PHQ-9 Over the last 2 weeks, how often have you been bothered by any of the following problems? Depression Screening Interpretation: Negative Depression Screening Done: Yes Source: Developed by Drs. Oni Quesada, Patrizia Bianchi, Andrew Head and colleagues, with an educational carter from [employer]. Thrive Questionnaire Date Thrive assessed: 11/08/23 I am a: Patient What is your living situation today?: I have a steady place to live Within the past 12 months, did the food you bought not last and you didn't have the money to get more?: Never true Within the past 12 months, did you worry whether your food would run out before you got money to buy more?: Never true Do you have trouble paying for medicines?: No Do you have trouble getting transportation to medical appointments?: No Do you have trouble paying your heating and electricity bill?: No Do you have trouble taking care of your child, family member or friend?: No Do you have trouble with day-to-day activities such as bathing, preparing meals, shopping, managing finances, etc.?: No Are you currently unemployed and looking for a job?: No Are you interested in more education?: No Please select the resources that you would like help with: None Currently or been in a relationship where the following occur: No concerns reported THRIVE Score: 0 CHARLOTTE-7 AMB Questionnaire CHARLOTTE-7 Date CHARLOTTE - 7 assessed: 11/08/23 Source: Developed by Drs. Oni Quesada, Patrizia Bianchi, Andrew Head and colleagues, with an educational carter from [employer]. Review of Systems Const Denies fatigue, Denies fever(s), Denies headache(s) and Denies weakness Eyes Denies change in vision ENT Denies headache(s), Denies nasal congestion, Denies nasal discharge and Denies sore throat Card Denies chest pain, Denies lightheadedness and Denies palpitations Resp Denies chest congestion and Denies cough GI Denies abdominal pain, Denies change in bowel habits and Denies heartburn Denies urinary frequency, Denies dysuria and Denies urinary urgency Musc Details: - Exercise is limited due to knee issues. - Musculoskeletal: Reports knee pain and dysfunction due to ligament issues, meniscal tear, and Gill's cyst. -. Denies abnormal gait, Denies myalgias, Reports muscle cramps (nocturnal leg cramps) and Reports stiffness Neuro Denies abnormal gait, Denies headache(s) and Denies weakness Psych Reports no additional complaints Endo Denies fatigue, Denies polydipsia, Denies polyuria and Denies palpitations Krishna/Lymph Details: Denies recent infections; concerns regarding elevated lymphocyte coun Denies easy bruising Aller/Immun Denies seasonal rhinorrhea Physical exam (Primary Care) Vital Signs: Last Vital Signs Pulse 74 01/03/24 08:07 BP 140/74 H 01/03/24 08:07 Pulse Ox 98 01/03/24 08:07 Oxygen Delivery Method Room Air 01/03/24 08:07 BMI result Body Mass Index 35.3 Tobacco/Smoking Status: Tobacco use Status Tobacco use date assessed 01/03/24 01/03/24 08:12 Patient Tobacco Use Status Never used Tobacco 01/03/24 08:12 e-Cigarette/Vaping Use Never Used 01/03/24 08:12 Depression Screening Interpretation: Negative Thrive Assessment: Date of Thrive Assessment Date Thrive assessed 11/08/23 01/03/24 08:12 Currently or been in a relationship where the following occur: No concerns reported Const General: no acute distress and alert Orientation/consciousness: patient oriented x3 HENMT Head: Yes normocephalic Ears: external ears normal General nose exam: Normal external nose present Face and sinus: Yes face symmetric Mouth: Normal oral and palatal mucosa present and moist mucous membranes Eyes General: appearance normal, both eyes and all related structures Neck Other: Nonpalpable thyroid gland Neck: Yes full ROM, Yes no lymphadenopathy and Yes supple Resp Auscultation: clear to auscultation bilaterally Cardio Other: S1-S2 present regular rate and rhythm GI Other: Her bowel sounds, soft, nontender, with no mass palpated Skin General skin exam: no rashes or lesions noted Neuro General: patient oriented x3, gait normal, tone normal, moves all extremities, Normal light touch and pain sensation and no focal motor deficits Extrem General: Yes full ROM, Yes no joint enlargement, Yes no calf tenderness and Yes normal gait Results Reviewed Results Reviewed: Name: Melba Kline Age/Sex: 68/F : 1955 Unit#: [id number] Attend Dr: Francesca Bass MD Re12/26/23 Status: DEP REF Location: .LAB Disch: SPEC : [id number] ANIA: 12/26/23 STATUS: COMP REQ : [id number] RECD: 12/26/[address]: Francesca Bass MD COMP: 12/27/23 ENTERED: 12/26/[address]: ORDERED: CBC Man Diff, SLIDE REVIEW, Path Review Test Result Flag Reference WBC 10.0 4.8-10.8 X10*3/uL RBC 4.60 4.20-5.50 X10*6/uL HGB 14.1 12.0-16.0 g/dl HCT 41.7 37.0-47.0 % MCV 90.7 80.0-98.0 fL MCH 30.7 27.0-33.0 pg MCHC 33.8 31.0-35.0 g/dl RDW 12.8 11.0-16.0 % PLT 214 160-400 X10*3/uL MPV 9.9 9.4-12.3 fL NRBC Pct Auto 0.0 0.0-0.2 /100WBC NRBC Abs Auto 0.000 0.0-0.012 X10*3/uL Neut Pct Manual 34 L 45-73 % Band Pct 0 L 3-5 % Lymph PctManual 62 H 20-40 % [place] Pct Manual 2 2-11 % Eos Pct Manual 2 0-4 % ANC NeutAbsMan 3.4 2.0-8.3 X10*3/uL Lymph Abs Man 6.2 H 1.2-4.9 X10*3/uL [place] Abs Manual 0.2 0.1-1.2 X10*3/uL Eos Abs Manual 0.2 0.0-0.4 X10*3/uL Smudge Cells PRESENT Platelet Est NORMAL NORMAL Plt Morph Com NORMAL RBC Morph NORMAL SLIDE REVIEW MANUAL DIFF Path Review SEE NOTE Name: Melba Kline Age/Sex: 68/F : 1955 Unit#: [id number] Attend Dr: Francesca Bass MD Re12/26/23 Status: DEP [facility]: SPEC : [id number] ANIA: 12/26/23 STATUS: COMP REQ : [id number] RECD: 12/26/[address]: Francesca Bass MD COMP: 12/26/23 ENTERED: 12/26/[address]: ORDERED: CMP Fast, MG, Lipid Panel, Vitamin D 25-OH, Free T4, TSH Test Result Flag Reference Sodium 140 135-145 mmol/L Potassium 3.9 3.3-5.1 mmol/L CL 104 96-108 mmol/L CO2 27 22-29 mmol/L Gap 13 12-20 BUN 15 9-16 mg/dL Creat 0.79 0.5-1.4 mg/dL EGFR > 60 NOTE: For -[place] individuals, multiply the result by 1.210. Chronic Kidney Disease: Estimated GFR < 60 mL/min/1.73m2 Severe Kidney Disease: Estimated GFR < 15 mL/min/1.73m2 FBS 133 H 60-99 mg/dL A fasting glucose of 126 mg/dl or greater on more than one occasion is considered diagnostic of diabetes. CA 9.3 8.4-10.2 mg/dL Magnesium 2.1 1.6-2.6 mg/dL Total Bili 0.5 0.0-1.0 mg/dL AST (GOT) 23 5-31 U/L ALT (GPT) 40 H 0-31 U/L Protein, Total 7.2 6.5-8.0 g/dL Alb 4.3 3.5-5.0 g/dL Triglyceride 232 H <150 mg/dL Desirable Triglyceride: less than 150 mg/dL Borderline High Triglyceride 150-199 mg/dL High Triglyceride: 200-499 mg/dL Very High Triglyceride: greater than or equal to 5OO mg/dL Cholesterol 219 H <200 mg/dL Desirable Cholesterol: less than 200 mg/dL Borderline High Cholesterol: 200-239 mg/dL High Cholesterol: greater than 239 mg/dL LDL Calculated 131 H <100 mg/dL Desirable LDL: less than 100 mg/dL Near Optimal/Above Optimal LDL: 110-129 mg/dL Borderline High LDL: 130-159 mg/dL High LDL: 160-189 mg/dL Very High LDL: greater than or equal to 190 mg/dL HDL 42 >40 mg/dL Desirable HDL: greater than 40 mg/dL Note: This HDL assay may give artificially low results in patients with liver disease. Alk Phos 61 39-117 U/L Vit D 25-OH Tot 52.7 >30 ng/mL Health Based Reference Values* < 20 ng/mL Deficient 20-30 ng/mL Insufficient > 30 ng/mL Sufficient *Simba HENLEY. N Engl J Med. 2007;357:266-280 Care must be taken in interpreting Vitamin D results from different laboratories and methodologies. Published data demonstrated that results from patients undergoing hemodialysis may show a negative bias when tested with various automated 25-OH vitamin D assays when compared to LC-MS/MS. When testing samples from patients whose predominant form of Vitamin D is Vitamin D2, such as patients receiving Vitamin D2 supplementation, results that are subtherapeutic should be confirmed with another method such as LC-MS/MS. Free T4 1.05 0.71-1.85 ng/dL TSH 3rd Gen. 2.23 0.32-4.0 uIU/mL Laboratory Tests 11/07/23 12/26/23 09:32 08:18 Hemoglobin A1c % 5.9 6.0 Coding Level of Care Code Est Pt Level 4 (05715) Complex EM visit Add On G2211 Diagnoses Impaired fasting glucose R73.01 Acquired hypothyroidism E03.9 Dyslipidemia E78.5 Essential hypertension I10 Lymphocytosis D72.820 Right anterior knee pain M25.561 Nocturnal leg cramps G47.62 Assessment & Plan Assessment & Plan (1) Impaired fasting glucose: Code(s): R73.01 - Impaired fasting glucose Category: Medical Plan: Monitor glucose levels, suggesting lifestyle adjustments for diet and exercise. (2) Acquired hypothyroidism: Code(s): E03.9 - Hypothyroidism, unspecified Category: Medical (3) Dyslipidemia: Code(s): E78.5 - Hyperlipidemia, unspecified Category: Medical Plan: Continue on current dose of atorvastatin 80 mg for hyperlipidemia, considering dietary changes to address elevated triglycerides. Advise fish oil supplementation for hyperlipidemia (4) Essential hypertension: Code(s): I10 - Essential (primary) hypertension Category: Medical Plan: mildly elevated blood pressure , which she attributes to (5) Lymphocytosis: Code(s): D72.820 - Lymphocytosis (symptomatic) Category: Medical Plan: Referral to hematology due to significant lymphocytosis and smudge cells, scheduled for January 15 (6) Right anterior knee pain: Code(s): M25.561 - Pain in right knee Category: Medical Plan: Prescribed physical therapy starting January 15 for knee issues. (7) Nocturnal leg cramps: Code(s): G47.62 - Sleep related leg cramps Category: Medical Plan: review of magnesium use for leg cramps, considering potential gastrointestinal effects Plan - Continue on current dose of atorvastatin 80 mg for hyperlipidemia, considering dietary changes to address elevated triglycerides. - review of magnesium use for leg cramps, considering potential gastrointestinal effects. - Ensure all vaccinations are up-to-date, withholding RSV vaccine pending hematologic assessment. discussed the management of hyperlipidemia and hypothyroidism, continuing the current medication regimen. The atorvastatin dose appears beneficial for LDL reduction; however, triglycerides have increased, so dietary contributions were also addressed. Consider reduced frequency of fish oil supplements to minimize gastrointestinal side effect recommended monitoring A1c and fasting glucose levels closely, adjusting lifestyle as needed. The unexpected lymphocytosis warrants hematology evaluation to rule out significant conditions such as CLL. I explained the implications of elevated smudge cells and the necessity of a baking factory worker?s insight. For knee-related issues, scheduled for physical therapy 01/16/24, and discussed the inability to drain the Gill's cyst, aligning with current orthopedic recommendations. - Ensure all vaccinations are current; defer RSV vaccine until further hematology consultation. - Follow up as scheduled for routine monitoring and management of chronic conditions. Patient was informed and verbally consented to the use of an ambient scribe for clinic note documentation during this visit. Orders: Orders Hemoglobin A1c 03/17/24 E78.5 - Hyperlipidemia, unspecified, G47.62 - Sleep related leg cramps, I10 - Essential (primary) hypertension, R73.01 - Impaired fasting glucose Vitamin D 25-OH Total 03/17/24 E78.5 - Hyperlipidemia, unspecified, G47.62 - Sleep related leg cramps, I10 - Essential (primary) hypertension, R73.01 - Impaired fasting glucose Basic Metabolic Panel Fasting 03/17/24 E78.5 - Hyperlipidemia, unspecified, G47.62 - Sleep related leg cramps, I10 - Essential (primary) hypertension, R73.01 - Impaired fasting glucose Thyroid Stimulating Hormone 03/17/24 E03.9 - Hypothyroidism, unspecified Free T4 (Free Thyroxine) 03/17/24 E03.9 - Hypothyroidism, unspecified Lipid Panel 03/17/24 E78.5 - Hyperlipidemia, unspecified, G47.62 - Sleep related leg cramps, I10 - Essential (primary) hypertension, R73.01 - Impaired fasting glucose Aspartate Amino Transferase 03/17/24 E78.5 - Hyperlipidemia, unspecified, G47.62 - Sleep related leg cramps, I10 - Essential (primary) hypertension, R73.01 - Impaired fasting glucose Alanine Aminotransferase 03/17/24 E78.5 - Hyperlipidemia, unspecified, G47.62 - Sleep related leg cramps, I10 - Essential (primary) hypertension, R73.01 - Impaired fasting glucose Magnesium 03/17/24 E78.5 - Hyperlipidemia, unspecified, G47.62 - Sleep related leg cramps, I10 - Essential (primary) hypertension, R73.01 - Impaired fasting glucose
== END 2024-01-03 10:31 | disposition home or self-care (01) ==
PROVIDERS: PCP Internal Medicine; Visit Provider Internal Medicine
DX: R73.01 Impaired fasting glucose (principal); E03.9 Hypothyroidism, unspecified; E78.5 Hyperlipidemia, unspecified; I10 Essential (primary) hypertension; D72.820 Lymphocytosis (symptomatic); M25.561 Pain in right knee; G47.62 Sleep related leg cramps

== ENCOUNTER → 2024-01-03 08:03 | Outpatient (BNVA) | payer MEDICARE, OTHER, SELFPAY | PROVIDERS: PCP Internal Medicine; Visit Provider Internal Medicine | DX: R73.01 Impaired fasting glucose (principal); E03.9 Hypothyroidism, unspecified; E78.5 Hyperlipidemia, unspecified; I10 Essential (primary) hypertension; D72.820 Lymphocytosis (symptomatic); M25.561 Pain in right knee; G47.62 Sleep related leg cramps | CPT/HCPCS: 99212 ==

== ENCOUNTER 2024-01-18 09:15 | Outpatient (AMB) | payer MEDICARE, OTHER, SELFPAY ==
[2024-01-18 09:23] VITALS: BP 122/90; PULSE 71; BMI 35.7
--- NOTE | 2024-01-18 09:23 | AM.OFFVISMDC ---
Intake Vital Signs 01/18/24 09:23 Height 5 ft Weight 183 lb BMI 35.7 BP 122/90 H Blood Pressure Location Lt brachial Position Sitting Pulse 71 Pulse Source Pulse Oximeter Intake Visit Reasons: SWV G0439 Intake Note: Pt is here today for her SWV: Last mammogram 07/12/23, bone denisty scan 07/12/23, colonoscopy 06/26/18 Allergies amlodipine [From Lotrel] Allergy (Unknown, Verified 01/18/24 09:59) Rash benazepril [From Lotrel] Allergy (Unknown, Verified 01/18/24 09:59) Rash IVP dye Allergy (Unknown, Uncoded 01/18/24 09:59) rash Medication List - Last Reconciled 01/18/24 by Francesca Bass MD albuterol sulfate 90 mcg/actuation (ProAir HFA) 2 puffs inhalation Q6H PRN aspirin (Adult Low Dose Aspirin) 81 mg PO DAILY atorvastatin 80 mg PO DAILY 3 months cholecalciferol (vitamin D3) 25 mcg PO DAILY hydrochlorothiazide 12.5 mg PO QAM levothyroxine 50 mcg PO DAILY magnesium oxide 250 mg PO DAILY metoprolol succinate ER 100 mg PO DAILY omeprazole 40 mg PO DAILY piroxicam 10 mg PO DAILY HPI SWV G0439 HPI Details SWV ? 67-year-old lady here today for her subsequent annual wellness visit. She is up-to-date with her screening mammogram and Bone density scan , done July 12, 2023 with negative findings, last Pap smear was done by Dr. Butler in 2015 which came back with negative findings as wel, no longer gets pap/pelvic exam. She had a screening colonoscopy done 06/26/[address] Mcintosh, due again in 2028. She had a fasting lipid panel screening done 12/26/2023 which showed lowand total e LDL cholesterol but higher triglycerides and normal HDL. Her fasting blood sugar was elevated but HBA1c wnl at 6.0%. She is up-to-date with her flu shot, pneumonia vaccination, Shingrix vaccine and Tdap but is due for her COVID booster Has Lymphocytosis , higher on recent labs done, and has an appointment with Hematology scheduled later this month for further evaluation. ? Medical / Social History Reviewed? Past Medical History ?Yes . ? [place] of Care / Care Team list updated ?Yes . ? Surgical/Hospitalization History ?Yes . ? Current Medications (including OTC and supplements) ?Yes . ? Family History ?Yes . ? Tobacco Control form ?Yes . ? AUDIT-C (Alcohol use) form ?Yes . ? Illicit drug use in Social History ?Yes . ? Current diagnosis of depression? ?No ? Appropriate PHQ2/PHQ9 completed ?Yes . ? Data entered by ?[employer] Supervisor and reviewed by provider ? Fall Risk ? Fall History? Have you had any falls with injury in the past year? ?No . ? Have you had two or more falls in the past year? ?No . ? Fall Risk Assessment: ?No falls in the past year . ? HRA filled out by the patient, reviewed by Provider and scanned. ?SWV ? Balance? [place] ?Yes . ? Tandem walk ?Yes . ? Walk and Turn ?Yes . ? Rise from sit to stand ?Yes . ?Vision? Corrective lens ?Yes ? Vision screen ? Up-to-date, sees ?Hearing? Whisper test ?pass, but with the use of hearing aid . ?Written Plan?Completed. See Patient Documents.? PFSH Medical History Nocturnal leg cramps Lymphocytosis Family history of peripheral vascular disease Hearing impairment Tinnitus of both ears Intermittent lightheadedness Exercise induced bronchospasm Tick bite of right upper arm History of gallstones Impaired fasting glucose Acquired hypothyroidism Carpal tunnel syndrome Mild acquired hearing loss GERD (gastroesophageal reflux disease) Keratitis, herpetic Dyslipidemia Osteoarthritis of spine Essential hypertension Surgical History History of myomectomy History of carpal tunnel surgery Hx of cholecystectomy Family History Father Arthritis CVD (cardiovascular disease) Mother Arthritis HTN (hypertension) Non-insulin dependent diabetes mellitus History of CVA (cerebrovascular accident) Brother No problems noted. Sister No problems noted. Sister Mental health disorder Sister Ovarian cancer Tubular adenoma Anemia Sister Factor V Leiden Anemia Social History Housing: House Alcohol intake: current Alcohol intake frequency: holidays/special occasions only Patient Tobacco Use Status: Never used Tobacco e-Cigarette/Vaping Use: Never Used Current occupational status: retired Cognitive needs: No Hearing needs: No Vision needs: Yes Questionnaire Medicare Wellness Checkup [age] 65-68 What gender do you identify with?: female During the past 4 weeks, how much have you been bothered by emotional problems such as feeling anxious, depressed, irritable, sad or downhearted, and blue?: not at all During the past 4 weeks, has your physical & emotional health limited your social activities with family, friends, neighbors, or groups?: not at all During the past 4 weeks, how much bodily pain have you generally had?: mild pain During the past 4 weeks, was someone available to help you if you needed & wanted help?: yes, as much as I wanted During the past 4 weeks, what was the hardest physical activity you could do for at least 2 minutes?: moderate Can you get to places out of walking distance without help? (For eg., can you travel alone on buses, taxis or drive your car?): Yes Can you go shopping for groceries or clothes without someone's help?: Yes Can you prepare your own meals?: Yes Can you do your housework without help?: Yes Because of any health problems, do you need the help of another person with your personal care needs such as eating, bathing, dressing or getting around the house?: No Can you handle your own money without help?: Yes During the past 4 weeks, how would you rate your health in general?: good During the past 4 weeks how have things been going for you?: pretty well Are you having difficulties driving your car?: no Do you always fasten your seat belt when you are in a car?: yes, usually During past 4 weeks, have you been bothered by the following: never: Falling or dizzy when standing up, Sexual problems?, Trouble eating well?, Teeth or denture problems? and Problems using the telephone? and sometimes: Tiredness or fatigue? Have you fallen 2 or more times in the past year?: No Are you afraid of falling?: No Are you a smoker?: no During the past 4 weeks, how many drinks of wine, beer, or other alcoholic beverages did you have?: no alcohol at all Do you exercise for about 20 minutes 3 or more times a week?: yes, some of the time Have you been given information to help with the following?: no: Hazards in your house that might hurt you? and no: Keeping track of your medications? How often do you have trouble taking medicines the way you have been told to take them?: I always take medicine as prescribed How confident are you that you can control & manage most of your health problems?: very confident What is your race?: White Mini Mental State Exam (MMSE) Orientation What is the (year) (season) (date) (day) (month)?: year (2023), season (Fall), date (01/18/2024), day (Tuesday) and month (January) Where are we (state) (county) (town or city) (hospital) (floor)?: state ([place]), county ([place]), town or city ([place]) and hospital/clinic ([facility]) Score Score: 9 Activity of Daily Living Bathing - sponge bath, tub bath or shower: receives no assistance (gets in/out by self, if usual bathing means Dressing - getting clothes from closets & drawers, including inner/outer garments & fasteners.: gets clothes & gets completely dressed without help Toileting - going to the 'toilet room' for urine/bowel elimination & cleaning self/arranging clothes: goes to toilet room, cleans self, arranges clothes without help Transfer: moves in & out of bed and chair without help (may use support object) Continence: controls urination/bowel movements completely by self Feeding: feeds self without help Total Score: 0 Information obtained from: patient Using telephone: independent Traveling: independent Shopping: independent Preparing meals: independent Housework: independent Taking medicine: independent Managing money: independent PHQ-9 Over the last 2 weeks, how often have you been bothered by any of the following problems? 1. Little interest or pleasure in doing things: not at all 2. Feeling down, depressed, or hopeless: not at all 3. Trouble falling or staying asleep, or sleeping too much: not at all 4. Feeling tired or having little energy: several days 5. Poor appetite or overeating: not at all 6. Feeling bad about yourself - or that you are a failure or have let yourself or your family down: not at all 7. Trouble concentrating on things, such as reading the newspaper or watching television: not at all 8. Moving or speaking so slowly that other people could have noticed. Or the opposite - being so fidgety or restless that you have been moving around a lot more than usual: not at all 9. Thoughts that you would be better off or of hurting yourself in some way: not at all Total score: 1 Depression Screening Interpretation: Negative Depression Screening Done: Yes 29755 - PHQ-9 Billing: Yes Source: Developed by Drs. Oni Quesada, Patrizia Bianchi, Andrew Head and colleagues, with an educational carter from [employer]. Physical Exam Vital Signs: Last Vital Signs Pulse 71 01/18/24 09:23 BP 122/90 H 01/18/24 09:23 BMI result Body Mass Index 35.7 Assessment & Plan Assessment & Plan (1) Encounter for subsequent annual wellness visit (AWV) in Medicare patient: Code(s): Z00.00 - Encounter for general adult medical examination without abnormal findings Plan: Medical wellness checklist reviewed, discussed with patient and updated (2) Essential hypertension: Code(s): I10 - Essential (primary) hypertension (3) Osteoarthritis of spine: Code(s): M47.9 - Spondylosis, unspecified Qualifiers: Spinal region: unspecified Spinal osteoarthritis complication: without myelopathy or radiculopathy Qualified Code(s): M47.819 - Spondylosis without myelopathy or radiculopathy, site unspecified (4) Dyslipidemia: Code(s): E78.5 - Hyperlipidemia, unspecified (5) Keratitis, herpetic: Code(s): B00.52 - Herpesviral keratitis (6) Acquired hypothyroidism: Code(s): E03.9 - Hypothyroidism, unspecified (7) Impaired fasting glucose: Code(s): R73.01 - Impaired fasting glucose (8) Hearing impairment: Comment: Now wears hearing aid Code(s): H91.90 - Unspecified hearing loss, unspecified ear Qualifiers: Hearing loss type: unspecified Laterality: bilateral Qualified Code(s): H91.93 - Unspecified hearing loss, bilateral (9) Lymphocytosis: Code(s): D72.820 - Lymphocytosis (symptomatic) (10) Right anterior knee pain: Code(s): M25.561 - Pain in right knee (11) Eczema of wrist: Code(s): L30.9 - Dermatitis, unspecified (12) Encounter for counseling regarding advance directives: Code(s): Z71.89 - Other specified counseling Plan: Initiated the conversation about Advanced Directives. Advanced Directives help patients prepare for current and future decisions about their medical treatment and place of care. Discussed with patient that it is a process where a patients current condition and prognosis are reviewed, their wishes for information regarding their illness are elicited, and likely medical dilemmas are presented and options discussed. Healthcare proxy form completed today. The form can be amended as needed, reviewed yearly and make changes as needed Plan - Adjust osteoarthritis management by reducing Piroxicam use while increasing Tylenol Arthritis dose if comfortable. - Continue with physical therapy for suspected radicular pain in the thigh. - Suggest Gabapentin if nerve pain does not improve with therapy. - Monitor prediabetic status closely, suggesting dietary modification to lower triglycerides. - Follow-up on lymphocytosis with the licensed nurse practitioner - Continue usage of steroid cream for eczema, not take for than 10 days - Patient to discuss cataract progression and potential surgery during May's ophthalmology appointment. Patient was informed and verbally consented to the use of an ambient scribe for clinic note documentation during this visit. Medications: New triamcinolone acetonide 0.1% 1 appl topical BID 30 grams 0RF 10 days L30.9 - Dermatitis, unspecified Quality Reporting (2019) Depression/Bipolar (159/160/161/177) PHQ-9: Total score: 1 Coding Level of Care Code Medicare Subsequent (G0439) Diagnoses Encounter for subsequent annual wellness visit (AWV) in Medicare patient Z00.00 Essential hypertension I10 Osteoarthritis of spine without myelopathy or radiculopathy, unspecified spinal region M47.819 Spinal region: unspecified Spinal osteoarthritis complication: without myelopathy or radiculopathy Dyslipidemia E78.5 Keratitis, herpetic B00.52 Acquired hypothyroidism E03.9 Impaired fasting glucose R73.01 Bilateral hearing loss, unspecified hearing loss type H91.93 Hearing loss type: unspecified Laterality: bilateral Lymphocytosis D72.820 Right anterior knee pain M25.561 Eczema of wrist L30.9 Encounter for counseling regarding advance directives Z71.89 CPT Codes Advance Care Planning - Time spent: 16-45 minutes ([id number]) Additional Codes PHQ-9 - 07004 - PHQ-9 Billing: Yes ([id number]) Advance Care Planning Advance Care Planning discussion: Completed/Scanned Date of discussion: 01/18/24 Who was present: patient Forms completed: Health Care Proxy Time spent: 16-45 minutes Actual minutes spent: 2
--- OUTSIDE RECORDS SUMMARY | 2024-01-24 17:00 | XMS_ITS | Continuity of Care Document ---
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 It does not include entries that were removed or entered in error. Problem Status Onset Date Problem Type Date of Resolution Comments Source Diagnosis: ICD-10-CM Z46.1 Encounter for fitting and adjustment of hearing aid Active Diagnosis [facility] [place] [facility] Diagnosis: ICD-10-CM H90.3 Sensorineural hearing loss, bilateral Active Diagnosis [facility] Medications Combined list of outpatient medications from Department of [facility] and [facility] facilities.Medications provided include 1) outpatient medications from the last 15 months, and 2) patient-reported medications. Medication Details Route Status Patient Instructions Prescription Expires Prescription Number Last Dispense Date Ordering Provider Order Date Order Qty Source ALBUTEROL SULFATE HFA (albuterol sulfate), 90 MCG, HFA AER AD, INHALATION, [place], 8.5 g CANISTER Active [id number] 4 2023 25.5 Pharmac y Data Transac tion Service Facilit y ATORVASTATI N CALCIUM (atorvastat in calcium), 40 MG, TABLET, ORAL, LINDA [facility], 1000 ea. BOTTLE Active [id number] 4 2023 90 Pharmac y Data Transac tion Service Facilit y ATORVASTATI N CALCIUM (atorvastat in calcium), 80 MG, TABLET, ORAL, LINDA PHARMACEU, 500 ea. BOTTLE Active [id number] 4 2023 90 Pharmac y Data Transac tion Service Facilit y HYDROCHLORO THIAZIDE (hydrochlor othiazide), 12.5 MG, CAPSULE, ORAL, [place] [facility], 500 ea. BOTTLE Active [id number] 4 2023 90 Pharmac y Data Transac tion Service Facilit y HYDROCHLORO THIAZIDE (HYDROCHLOR OTHIAZIDE), 12.5MG, CAPSULE, ORAL, [facility], 500 ea. BOTTLE Active [id number] 4 2023 90 Pharmac y Data Transac tion Service Facilit y LEVOTHYROXI NE SODIUM (levothyrox ine sodium), 50 MCG, TABLET, ORAL, JOSE RANCH OR, 1000 ea. BOTTLE Active [id number] 4 2023 90 Pharmac y Data Transac tion Service Facilit y LEVOTHYROXI NE SODIUM (levothyrox ine sodium), 50 MCG, TABLET, ORAL, JOSE RANCH OR, 1000 ea. BOTTLE Active [id number] 4 2023 90 Pharmac y Data Transac tion Service Facilit y METOPROLOL SUCCINATE (metoprolol succinate), 100 MG, TAB ER 24H, ORAL, [employer] 1000 ea. BOTTLE Active [id number] 4 2023 90 Pharmac y Data Transac tion Service Facilit y OMEPRAZOLE (omeprazole ), 40 MG, CAPSULE DR, ORAL, [employer] [facility], 500 ea. BOTTLE Active [id number] 4 2023 90 Pharmac y Data Transac tion Service Facilit y OMEPRAZOLE (omeprazole ), 40 MG, CAPSULE DR, ORAL, [employer], 500 ea. BOTTLE Active [id number] 4 2023 90 Pharmac y Data Transac tion Service Facilit y PIROXICAM (PIROXICAM) , 10 MG, CAPSULE, ORAL, AVKARE, 100 ea. BOTTLE Cancele d [id number] : 2023 0 Pharmac y Data Transac tion Service Facilit y PIROXICAM (PIROXICAM) , 10 MG, CAPSULE, ORAL, AVKARE, 100 ea. BOTTLE Active [id number] 4 2023 90 Pharmac y Data Transac tion Service Facilit y PIROXICAM (PIROXICAM) , 10 MG, CAPSULE, ORAL, AVKARE, 100 ea. BOTTLE Active [id number] 4 2023 90 Pharmac y Data Transac tion Service Facilit y Immunizations Combined list of available immunizations from the Department of Defense and Veterans Affairs facilities. Immunization Series Date Given Administered By Site Reaction Lot Number CVX Code Drug B2B Sales Professional Status Comments Source Novel influenza-H1N 1-09, injectable 1 2009 Unknown, Provider [id number] 127 [employer] (NOV) complet ed Novel influenza -V5T9-11, injectabl e DoD influenza virus vaccine, split virus (incl. purified surface antigen)-reti red CODE 1 2008 Unknown, Provider [id number] 15 [employer] (CS) complet ed influenza virus vaccine, split virus (incl. purified surface antigen)- retired CODE DoD influenza virus vaccine, split virus (incl. purified surface antigen)-reti red CODE 1 2007 Unknown, Provider [id number] 15 San[employer] Pasteur ([facility]) complet ed influenza virus vaccine, split virus (incl. purified surface antigen)- retired CODE [facility] tuberculin skin test; purified protein derivative solution, intradermal 1 2007 Unknown, Provider [id number] 96 Sanof[employer] Pasteur ([facility]) complet ed tuberculi n skin test; purified protein derivativ e solution, intraderm al DoD influenza virus vaccine, split virus (incl. purified surface antigen)-reti red CODE 1 2006 Unknown, Provider [id number] 15 San[employer] Paste[employer] ([facility]) complet ed influenza virus vaccine, split virus (incl. purified surface antigen)- retired CODE [facility] tuberculin skin test; purified protein derivative solution, intradermal 1 2006 Unknown, Provider [id number] 96 San[employer]i Paste[employer] ([facility]) complet ed tuberculi n skin test; purified protein derivativ e solution, intraderm al DoD tetanus toxoid, reduced diphtheria toxoid, and acellular pertu is vaccine, adsorbed 1 2006 Unknown, Provider [id number] [place] [address] (SKB) complet ed tetanus toxoid, reduced diphtheri a toxoid, and acellular pertussis vaccine, adsorbed DoD influenza virus vaccine, split virus (incl. purified surface antigen)-reti red CODE 1 2005 Unknown, Provider [id number] 15 Sanofi Pasteur ([facility]) complet ed influenza virus vaccine, split virus (incl. purified surface antigen)- retired CODE [facility] tuberculin skin test; purified protein derivative solution, intradermal 1 2005 Unknown, Provider [id number] 96 Sanofi Pasteur ([facility]) complet ed tuberculi n skin test; purified protein derivativ e solution, intraderm al DoD influenza virus vaccine, split virus (incl. purified surface antigen)-reti red CODE 1 2004 Unknown, Provider [id number] 15 San[employer]i Paste[employer] ([facility]) complet ed influenza virus vaccine, split virus (incl. purified surface antigen)- retired CODE DoD tuberculin skin test; purified protein derivative solution, intradermal 1 2004 Unknown, Provider [id number] 96 San[employer]i Paste[employer] ([facility]) complet ed tuberculi n skin test; purified protein derivativ e solution, intraderm al DoD influenza virus vaccine, whole virus 1 2004 Unknown, Provider [id number] 16 [employer] Paste[employer] ([facility]) complet ed influenza virus vaccine, whole virus DoD typhoid Vi capsular polysaccharid e vaccine 1 2003 Unknown, Provider [id number] Sanofi Pasteur ([facility]) complet ed typhoid Vi capsular polysacch aride vaccine DoD influenza virus vaccine, whole virus 1 2002 Unknown, Provider [id number] 16 [facility]) complet ed influenza virus vaccine, whole virus DoD tuberculin skin test; purified protein derivative solution, intradermal 1 2002 Unknown, Provider [id number] 96 San[employer]i Paste[employer] ([facility]) complet ed tuberculi n skin test; purified protein derivativ e solution, intraderm al DoD influenza virus vaccine, whole virus 1 2001 Unknown, Provider [id number] 16 San[employer]i P[employer] ([facility]) complet ed influenza virus vaccine, whole virus DoD tuberculin skin test; purified protein derivative solution, intradermal 1 2001 Unknown, Provider [id number] 96 Sanofi Paste[employer] ([facility]) complet ed tuberculi n skin test; purified protein derivativ e solution, intraderm al DoD typhoid Vi capsular polysaccharid e vaccine 1 2001 Unknown, Provider [id number] San[employer] Paste[employer] ([facility]) complet ed typhoid Vi capsular polysacch aride vaccine DoD influenza virus vaccine, whole virus 1 2000 Unknown, Provider [id number] 16 San[employer]i Paste[employer] ([facility]) complet ed influenza virus vaccine, whole virus DoD tuberculin skin test; purified protein derivative solution, intradermal 1 2000 Unknown, Provider [id number] 96 Sanofi Paste[employer] ([facility]) complet ed tuberculi n skin test; purified protein derivativ e solution, intraderm al DoD influenza virus vaccine, whole virus 1 1999 Unknown, [facility] [id number] [facility]) complet ed influenza virus vaccine, whole virus DoD tuberculin skin test; purified protein derivative solution, intradermal 1 1999 Unknown, Provider 96 () complet ed tuberculi n skin test; purified protein derivativ e solution, intraderm al DoD typhoid vaccine, parenteral, other than acetone-kille d, dried 1 1999 Unknown, Provider 41 () complet ed typhoid vaccine, parentera l, other than acetone-k illed, dried DoD typhoid vaccine, parenteral, other than acetone-kille d, dried 1 1999 Unknown, Provider [id number] San[employer]i Paste[employer] ([facility]) complet ed typhoid vaccine, parentera l, other than acetone-k illed, dried DoD measles, mumps and rubella virus vaccine 1 1999 Unknown, Provider [id number] [employer] (MSD) complet ed measles, mumps and rubella virus vaccine DoD influenza virus vaccine, whole virus 1 1998 Unknown, Provider [id number] [facility]) complet ed influenza virus vaccine, whole virus DoD tuberculin skin test; purified protein derivative solution, intradermal 1 1998 Unknown, Provider [id number] [facility] complet ed tuberculi n skin test; purified protein derivativ e solution, intraderm al DoD yellow fever vaccine 1 1998 Unknown, Provider [id number] Sanofi Pasteur ([facility]) complet ed yellow fever vaccine DoD tetanus and diphtheria toxoids, adsorbed, preservative free, for adult use (2 Lf of tetanus toxoid and 2 Lf of diphtheria toxoid) 1 1997 Unknown, Provider [id number] Sanofi Pasteur ([facility]) complet ed tetanus and diphtheri a toxoids, adsorbed, preservat chiquis free, for adult use (2 Lf of tetanus toxoid and 2 Lf of diphtheri a toxoid) DoD influenza virus vaccine, whole virus 1 1997 Unknown, Provider [id number] 16 Sanofi Paste[employer] ([facility]) complet ed influenza virus vaccine, whole virus DoD influenza virus vaccine, whole virus 1 1996 Unknown, Provider 16 () complet ed influenza virus vaccine, whole virus DoD hepatitis B vaccine, adult dosage 3 1996 Unknown, Provider 43 () complet ed hepatitis B vaccine, adult dosage DoD typhoid vaccine, parenteral, acetone-kille d, dried ([place] ) 2 1996 Unknown, Provider 53 () complet ed typhoid vaccine, parentera l, acetone-k illed, dried ([place] ) DoD hepatitis A vaccine, adult dosage 2 1996 Unknown, Provider 52 () complet ed hepatitis A vaccine, adult dosage DoD yellow fever vaccine 1 1987 Unknown, Provider 37 () complet ed yellow fever vaccine DoD tetanus and diphtheria toxoids, adsorbed, preservative free, for adult use (2 Lf of tetanus toxoid and 2 Lf of diphtheria toxoid) 1 1987 Unknown, Provider 09 () complet ed tetanus and diphtheri a toxoids, adsorbed, preservat chiquis free, for adult use (2 Lf of tetanus toxoid and 2 Lf of diphtheri a toxoid) DoD cholera vaccine, unspecified formulation 1 1979 Unknown, Provider 26 () complet ed cholera vaccine, unspecifi ed formulati on DoD trivalent poliovirus vaccine, live, oral 1 1978 Unknown, Provider 02 () complet ed trivalent polioviru s vaccine, live, oral DoD Encounters Combined list of: 1) Encounters from Department of Veterans Affairs facilities going back up to thelast 18 months. 2) Encounters from the Department of Defense facilities going back up to 280 months. Location Location Details Encounter Type Encounter Number Reason For Visit Attending Provider ADM Date DC Date Status Disposition Source [facility] EXAM BOTH EARS [id number] Diagnos is: ICD-10- CM H90.3 Sensori neural hearing loss, bilater al
SANDI WOAMCK 10/06 [facility] [id number] Diagnos is: ICD-10- CM Z46.1 Encount er for fitting and adjustm ent of hearing aid<br/ > ASAEL QUIROGA 11/03 [facility] Social History Combined list of available smoking, tobacco, and other social history from Department of Defense and Veterans Affairs facilities. Social History Type Response Date Comment Sour e This section is an empty social history section. DoD
== END 2024-01-18 10:28 | disposition home or self-care (01) ==
PROVIDERS: PCP Internal Medicine; Visit Provider Internal Medicine
DX: Z00.00 Encounter for general adult medical examination without abnormal findings (principal); I10 Essential (primary) hypertension; M47.819 Spondylosis without myelopathy or radiculopathy, site unspecified; E78.5 Hyperlipidemia, unspecified; B00.52 Herpesviral keratitis; E03.9 Hypothyroidism, unspecified; R73.01 Impaired fasting glucose; H91.93 Unspecified hearing loss, bilateral; D72.820 Lymphocytosis (symptomatic); M25.561 Pain in right knee; L30.9 Dermatitis, unspecified

== ENCOUNTER → 2024-01-18 09:15 | Outpatient (BNVA) | payer MEDICARE, OTHER, SELFPAY | PROVIDERS: PCP Internal Medicine; Visit Provider Internal Medicine | DX: Z00.00 Encounter for general adult medical examination without abnormal findings (principal); I10 Essential (primary) hypertension; M47.819 Spondylosis without myelopathy or radiculopathy, site unspecified; E78.5 Hyperlipidemia, unspecified; B00.52 Herpesviral keratitis; E03.9 Hypothyroidism, unspecified; R73.01 Impaired fasting glucose; H91.93 Unspecified hearing loss, bilateral; D72.820 Lymphocytosis (symptomatic); M25.561 Pain in right knee; L30.9 Dermatitis, unspecified; Z71.89 Other specified counseling | CPT/HCPCS: 96127 ==

== ENCOUNTER → 2024-02-06 10:40 | Outpatient (BNV) | payer MEDICARE, OTHER, SELFPAY | PROVIDERS: PCP Internal Medicine; Referring Provider Internal Medicine; Visit Provider Internal Medicine | DX: D72.820 Lymphocytosis (symptomatic) (principal) | CPT/HCPCS: 99204; G2211 ==

== ENCOUNTER 2024-03-16 06:45 | Outpatient (REF) | payer MEDICARE, OTHER, SELFPAY ==
[2024-03-16 07:05] LABS: Basophils Percent Auto 0.3 % (0-2); Eosinophils Absolute Auto 0.4 X10*3/uL (0.0-0.4); Eosinophils Percent Auto 3.1 % (0-4); Hematocrit 37.9 % (37.0-47.0); Imm Gran Abs Auto 0.02 X10*3/uL (0.00-0.03); Imm Gran Pct Auto 0.2 % (0.0-0.4); Lymphocytes Percent Auto 52.1 % (20-40); MANUAL DIFF FLAG SCAN; Mean Corpuscular HGB Conc 34.3 g/dl (31.0-35.0); Mean Corpuscular Hemoglobin 31.8 pg (27.0-33.0); Mean Corpuscular Volume 92.7 fL (80.0-98.0); Mean Platelet Volume 9.7 fL (9.4-12.3); Monocytes Absolute Auto 0.6 X10*3/uL (0.1-1.2); Monocytes Percent Auto 4.9 % (2-11); Neutrophils Absolute Auto 4.6 x10*3/uL (2.0-8.3); Neutrophils Percent Auto 39.4 % (45-73); Platelet Count 211 X10*3/uL (160-400); Red Blood Count 4.09 X10*6/uL (4.20-5.50); Red Cell Distribution Width 12.8 % (11.0-16.0); SCAN SMEAR FLAG 1; White Blood Count 11.6 X10*3/uL (4.8-10.8)
[2024-03-16 07:19] LABS: Estimated Average Glucose 123 mg/dL; Hemoglobin A1C 138.9542 umol/L; Hemoglobin A1c % 5.9 % (<6.0); Total Hemoglobin (HGBA1C) 3416.4885 umol/L
[2024-03-16 07:28] LABS: Alanine Aminotransferase 39 U/L (0-31); Anion Gap 13 (12-20); Aspartate Amino Transferase 27 U/L (5-31); Blood Urea Nitrogen 15 mg/dL (9-16); Calcium 9.6 mg/dL (8.4-10.2); Carbon Dioxide 26 mmol/L (22-29); Chloride 111 mmol/L (96-108); Cholesterol 168 mg/dL (<200); Estimated Glomerular Filt Rate > 60; Glucose Fasting 120 mg/dL (60-99); HDL Cholesterol 38 mg/dL (>40); LDL Cholesterol Calculated 104 mg/dL (<100); Lactate Dehydrogenase 193 U/L (122-220); Potassium 4.5 mmol/L (3.3-5.1); Sodium 145 mmol/L (135-145); Triglycerides 131 mg/dL (<150)
[2024-03-16 07:32] LABS: SLIDE REVIEW VERIFIED
[2024-03-16 07:41] LABS: Free T4 (Free Thyroxine) 1.07 ng/dL (0.71-1.85); Vitamin D 25-OH Total 52.2 ng/mL (>30)
[2024-03-16 07:42] LABS: Thyroid Stimulating Hormone 2.05 uIU/mL (0.32-4.0)
== END 2024-03-16 06:46 | disposition home or self-care (01) ==
LOC: HO.LAB 06:45
PROVIDERS: Absent Provider Internal Medicine; PCP Internal Medicine; Visit Provider Internal Medicine
DX: G47.62 Sleep related leg cramps (principal); C91.10 Chronic lymphocytic leukemia of B-cell type not having achieved remission; R73.01 Impaired fasting glucose; E78.5 Hyperlipidemia, unspecified; I10 Essential (primary) hypertension; E03.9 Hypothyroidism, unspecified
CPT/HCPCS: 36415; 80048; 80061; 82306; 83036; 83615; 83735; 84439; 84443; 84450; 84460; 85025

== ENCOUNTER 2024-03-20 10:45 | Outpatient (AMB) | payer MEDICARE, OTHER, SELFPAY ==
[2024-03-20 10:59] VITALS: BP 144/88; PULSE 80; TEMP 37.3; O2SAT 97; BMI 36.5
--- NOTE | 2024-03-20 10:59 | MHC.PC.OV ---
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 Required: No Accompanied by: Self / Same As Patient Allergies amlodipine [From Lotrel] Allergy (Unknown, Verified 03/25/24 18:59) Rash benazepril [From Lotrel] Allergy (Unknown, Verified 03/25/24 18:59) Rash IVP dye Allergy (Unknown, Uncoded 03/25/24 18:59) rash Medication List - Last Reconciled 03/25/24 by Francesca Bass MD albuterol sulfate 90 mcg/actuation (ProAir HFA) 2 puffs inhalation Q6H PRN amoxicillin-pot clavulanate 875-125 mg 1 tab PO Q12H 10 days aspirin (Adult Low Dose Aspirin) 81 mg PO DAILY atorvastatin 80 mg PO DAILY 3 months cholecalciferol (vitamin D3) 25 mcg PO DAILY coQ10 (ubiquinol) (Qunol Hubert CoQ10) 100 mg PO DAILY hydrochlorothiazide 12.5 mg PO QAM levothyroxine 50 mcg PO DAILY magnesium oxide 250 mg PO DAILY metoprolol succinate ER 100 mg PO DAILY omeprazole 40 mg PO DAILY piroxicam 10 mg PO DAILY triamcinolone acetonide 0.1% 1 appl topical BID 10 days Tobacco use date assessed: 03/20/24 Fall risk assessment: No Falls in past year Last assessed Fall Risk: 03/20/24 Dental Screening Dental Screen Date: 03/20/24 Did you have a dental visit in the last 12 months?: Yes Did you have a dental problem in the last 6 months where you did not have access to dental care?: No Was dental information given to patient?: Patient has dentist HPI 3 month f/u HPI Details 69-year-old female presenting with recurrent productive cough, which started with a a runny nose and cold symptoms, which gradually progressed now with persistent rhinorrhea. This was not accompanied by any fever or chills - Confirmed diagnosis of lymphocytic leukemia with lymphocytosis was noted, with a result of one mutagen detected, identified as the mutation Q13. The patient is under a watchful waiting protocol with routine hematology appointments to monitor her condition. - The patient's hypertension management faced complications due to the late delivery of her diuretic medication. Recent readings were notably elevated. - Hyperlipidemia is managed with atorvastatin, currently adjusted to 80 mg night dosing with no major adverse effects mentioned. [facility] Medical History Nocturnal leg cramps Lymphocytosis Family history of peripheral vascular disease Hearing impairment Tinnitus of both ears Intermittent lightheadedness Exercise induced bronchospasm Tick bite of right upper arm History of gallstones Impaired fasting glucose Acquired hypothyroidism Carpal tunnel syndrome Mild acquired hearing loss GERD (gastroesophageal reflux disease) Keratitis, herpetic Dyslipidemia Osteoarthritis of spine Essential hypertension Surgical History History of myomectomy History of carpal tunnel surgery Hx of cholecystectomy Family History Father Arthritis CVD (cardiovascular disease) Mother Arthritis HTN (hypertension) Non-insulin dependent diabetes mellitus History of CVA (cerebrovascular accident) Brother No problems noted. Sister No problems noted. Sister Mental health disorder Sister Ovarian cancer Tubular adenoma Anemia Sister Factor V Leiden Anemia Social History Household Members: Family Housing: House Alcohol intake: current Alcohol intake frequency: holidays/special occasions only Patient Tobacco Use Status: Never used Tobacco e-Cigarette/Vaping Use: Never Used service: Yes Current occupational status: retired Gender identity: Female Cognitive needs: No Hearing needs: No Vision needs: Yes Questionnaire PHQ-9 Over the last 2 weeks, how often have you been bothered by any of the following problems? 1. Little interest or pleasure in doing things: not at all 2. Feeling down, depressed, or hopeless: not at all 3. Trouble falling or staying asleep, or sleeping too much: not at all 4. Feeling tired or having little energy: several days 5. Poor appetite or overeating: not at all 6. Feeling bad about yourself - or that you are a failure or have let yourself or your family down: not at all 7. Trouble concentrating on things, such as reading the newspaper or watching television: not at all 8. Moving or speaking so slowly that other people could have noticed. Or the opposite - being so fidgety or restless that you have been moving around a lot more than usual: not at all 9. Thoughts that you would be better off or of hurting yourself in some way: not at all Total score: 1 Depression Screening Interpretation: Negative Depression Screening Done: Yes 50865 - PHQ-9 Billing: Yes Source: Developed by Drs. Oni Quesada, Patrizia Bianchi, Andrew Head and colleagues, with an educational carter from [employer]. Thrive Questionnaire Date Thrive assessed: 03/20/24 I am a: Patient What is your living situation today?: I have a steady place to live Within the past 12 months, did the food you bought not last and you didn't have the money to get more?: Never true Within the past 12 months, did you worry whether your food would run out before you got money to buy more?: Never true Do you have trouble paying for medicines?: No Do you have trouble getting transportation to medical appointments?: No Do you have trouble paying your heating and electricity bill?: No Do you have trouble taking care of your child, family member or friend?: No Do you have trouble with day-to-day activities such as bathing, preparing meals, shopping, managing finances, etc.?: No Are you currently unemployed and looking for a job?: No Are you interested in more education?: No Please select the resources that you would like help with: None Currently or been in a relationship where the following occur: No concerns reported THRIVE Score: 0 AUDIT C Alcohol Use Questionnaire (AUDIT-C) 1. How often do you have a drink containing alcohol?: Monthly or less 2. How many drinks containing alcohol do you have on a typical day when you are drinking?: 1 or 2 3. How often do you have six or more drinks on one occasion?: Never Total Score: 1 Score Reviewed/Action Taken: Yes CHARLOTTE-7 AMB Questionnaire CHARLOTTE-7 Date CHARLOTTE - 7 assessed: 03/20/24 Feeling nervous, anxious, or on edge: 0 = Not at all Not being able to stop or control worryin = Not at all Worrying too much about different things: 0 = Not at all Trouble relaxin = Not at all Being so restless that it is hard to sit still: 0 = Not at all Becoming easily annoyed or irritable: 0 = Not at all Feeling afraid as if something awful might happen: 0 = Not at all Total CHARLOTTE-7 score (0-4 normal; 5-9 mild; 10-14 moderate; 15-21 severe): 0 Source: Developed by Drs. Oin Quesada, Patrizia Bianchi, Andrew Head and colleagues, with an educational carter from [employer]. CHARLOTTE-7 Assessment Billing CHARLOTTE-7 Assessment Tool: CHARLOTTE-7 Assessment 91295 Review of Systems Const Denies fatigue, Denies fever(s) and Denies weakness Eyes Denies change in vision ENT Denies sore throat Card Denies chest pain, Denies lightheadedness and Denies palpitations Resp Reports as per HPI GI Denies abdominal pain, Denies change in bowel habits and Denies heartburn Denies urinary frequency, Denies dysuria and Denies urinary urgency Musc Details: - Exercise is limited due to knee issues. - Musculoskeletal: Reports knee pain and dysfunction due to ligament issues, meniscal tear, and Gill's cyst. -. Denies abnormal gait, Denies myalgias, Reports muscle cramps (nocturnal leg cramps) and Reports stiffness Neuro Denies abnormal gait and Denies weakness Psych Reports no additional complaints Endo Denies fatigue, Denies polydipsia, Denies polyuria and Denies palpitations Krishna/Lymph Denies easy bruising Aller/Immun Denies seasonal rhinorrhea Physical exam (Primary Care) Vital Signs: Last Vital Signs Temp 99.2 F 03/20/24 10:59 Pulse 80 03/20/24 10:59 BP 144/88 H 03/20/24 10:59 Pulse Ox 97 03/20/24 10:59 Oxygen Delivery Method Room Air 03/20/24 10:59 BMI result Body Mass Index 36.5 Tobacco/Smoking Status: Tobacco use Status Tobacco use date assessed 03/20/24 03/20/24 11:02 Patient Tobacco Use Status Never used Tobacco 03/20/24 11:02 e-Cigarette/Vaping Use Never Used 03/20/24 11:02 PHQ-9: PHQ-9 Score PHQ-9: Total score 1 03/25/24 19:00 Depression Screening Interpretation: Negative Thrive Assessment: Date of Thrive Assessment Date Thrive assessed 03/20/24 03/20/24 11:02 Currently or been in a relationship where the following occur: No concerns reported Const General: no acute distress and alert Orientation/consciousness: patient oriented x3 [facility] Head: Yes normocephalic Ears: external ears normal General nose exam: Normal external nose present Face and sinus: Yes face symmetric and Yes sinus tenderness (maxillary area) Mouth: Normal oral and palatal mucosa present and moist mucous membranes Eyes General: appearance normal, both eyes and all related structures Neck Other: Nonpalpable thyroid gland Neck: Yes full ROM, Yes no lymphadenopathy and Yes supple Resp Auscultation: clear to auscultation bilaterally Cardio Other: S1-S2 present regular rate and rhythm GI Other: Her bowel sounds, soft, nontender, with no mass palpated Skin General skin exam: no rashes or lesions noted Neuro General: patient oriented x3, gait normal, tone normal, moves all extremities, Normal light touch and pain sensation and no focal motor deficits Extrem General: Yes full ROM, Yes no joint enlargement, Yes no calf tenderness and Yes normal gait Results Reviewed Results Reviewed: Name: Melba Kline Age/Sex: 69/F : 1955 Unit#: [id number] Attend Dr: Francesca Bass MD Re03/16/24 Status: DEP [facility] Disch: SPEC : [id number] ANIA: 03/16/24 STATUS: COMP REQ : [id number] RECD: 03/16/[address]: Maura Jensen MD COMP: 03/16/24 ENTERED: 03/16/[address]: Francesca Bass MD ORDERED: Met Prof Fast, MG, AST, ALT, LDH, Lipid Panel, TSH Test Result Flag Reference Sodium 145 135-145 mmol/L Potassium 4.5 3.3-5.1 mmol/L CL 111 H 96-108 mmol/L CO2 26 22-29 mmol/L Gap 13 12-20 BUN 15 9-16 mg/dL Creat 0.72 0.5-1.4 mg/dL eGFR > 60 Chronic Kidney Disease: Estimated GFR < 60 mL/min/1.73m2 Severe Kidney Disease: Estimated GFR < 15 mL/min/1.73m2 FBS 120 H 60-99 mg/dL A fasting glucose from 100-125 mg/dl is considered impaired (pre-diabetes). CA 9.6 8.4-10.2 mg/dL Magnesium 2.0 1.6-2.6 mg/dL AST (GOT) 27 5-31 U/L ALT (GPT) 39 H 0-31 U/L LDH 193 122-220 U/L Triglyceride 131 <150 mg/dL Desirable Triglyceride: less than 150 mg/dL Borderline High Triglyceride 150-199 mg/dL High Triglyceride: 200-499 mg/dL Very High Triglyceride: greater than or equal to 5OO mg/dL Cholesterol 168 <200 mg/dL Desirable Cholesterol: less than 200 mg/dL Borderline High Cholesterol: 200-239 mg/dL High Cholesterol: greater than 239 mg/dL LDL Calculated 104 H <100 mg/dL Desirable LDL: less than 100 mg/dL Near Optimal/Above Optimal LDL: 110-129 mg/dL Borderline High LDL: 130-159 mg/dL High LDL: 160-189 mg/dL Very High LDL: greater than or equal to 190 mg/dL HDL 38 L >40 mg/dL Desirable HDL: greater than 40 mg/dL Note: This HDL assay may give artificially low results in patients with liver disease. TSH 3rd Gen. 2.05 0.32-4.0 uIU/mL TSH 3rd Generation ([facility]) Coding Level of Care Code Est Pt Level 4 (21122) Complex EM visit Add On G2211 Diagnoses Acute non-recurrent maxillary sinusitis J01.00 Recurrence: non-recurrent Sinusitis location: maxillary Essential hypertension I10 Dyslipidemia E78.5 Acquired hypothyroidism E03.9 Impaired fasting glucose R73.01 Additional Codes CHARLOTTE-7 Assessment Billing - CHARLOTTE-7 Assessment Tool: CHARLOTTE-7 Assessment 90307 ([id number]) PHQ-9 - 24903 - PHQ-9 Billing: Yes ([id number]) Assessment & Plan Assessment & Plan (1) Acute sinusitis: Code(s): J01.90 - Acute sinusitis, unspecified Qualifiers: Recurrence: non-recurrent Sinusitis location: maxillary Qualified Code(s): J01.00 - Acute maxillary sinusitis, unspecified Plan: Patient prescribed amoxicillin-clavulanic acid 875-125 mg per tablet to take 1 every 12 hours for 10 days. Return to clinic if no improvement of symptoms noted after completion of antibiotics (2) Essential hypertension: Code(s): I10 - Essential (primary) hypertension Category: Medical Plan: Blood pressure control improving. However it still above normal limits, which is likely d in part to her being sick at present. Patient to continue with hydrochlorothiazide 12.5 mg daily and metoprolol succinate ER 100 mg once a day. Reinforced importance of following a low-salt diet and staying active. Advised to come in to be have a blood pressure check in 2-3 weeks (3) Dyslipidemia: Code(s): E78.5 - Hyperlipidemia, unspecified Category: Medical Plan: Recent fasting labs showed lipids are within normal limits except for low good cholesterol level. Continue with regular exercise continue with atorvastatin 80 mg daily taken with Co Q10 100 mg daily. (4) Acquired hypothyroidism: Code(s): E03.9 - Hypothyroidism, unspecified Category: Medical Plan: Thyroid levels within normal limits, continued on current dose of levothyroxine at 50 mcg daily (5) Impaired fasting glucose: Code(s): R73.01 - Impaired fasting glucose Category: Medical Plan: Your previous fasting blood sugars were elevated above 100 mg/dL. Impaired glucose metabolism increases the risk for developing diabetes mellitus type 2, as well as heart attack and stroke later on. Lifestyle changes that promotes weight loss, healthy eating habits, and regular exercise are important, and can prevent the progression to diabetes Orders: Orders Alanine Aminotransferase 08/14/24 E03.9 - Hypothyroidism, unspecified, E78.5 - Hyperlipidemia, unspecified, I10 - Essential (primary) hypertension, J01.90 - Acute sinusitis, unspecified, R73.01 - Impaired fasting glucose Aspartate Amino Transferase 08/14/24 E03.9 - Hypothyroidism, unspecified, E78.5 - Hyperlipidemia, unspecified, I10 - Essential (primary) hypertension, J01.90 - Acute sinusitis, unspecified, R73.01 - Impaired fasting glucose Hemoglobin A1c 08/14/24 E03.9 - Hypothyroidism, unspecified, E78.5 - Hyperlipidemia, unspecified, I10 - Essential (primary) hypertension, J01.90 - Acute sinusitis, unspecified, R73.01 - Impaired fasting glucose Creatine Kinase Total 08/14/24 E03.9 - Hypothyroidism, unspecified, E78.5 - Hyperlipidemia, unspecified, I10 - Essential (primary) hypertension, J01.90 - Acute sinusitis, unspecified, R73.01 - Impaired fasting glucose Vitamin D 25-OH Total 08/14/24 E03.9 - Hypothyroidism, unspecified, E78.5 - Hyperlipidemia, unspecified, I10 - Essential (primary) hypertension, J01.90 - Acute sinusitis, unspecified, R73.01 - Impaired fasting glucose Thyroid Stimulating Hormone 08/14/24 E03.9 - Hypothyroidism, unspecified, E78.5 - Hyperlipidemia, unspecified, I10 - Essential (primary) hypertension, J01.90 - Acute sinusitis, unspecified, R73.01 - Impaired fasting glucose Basic Metabolic Panel Fasting 08/14/24 E03.9 - Hypothyroidism, unspecified, E78.5 - Hyperlipidemia, unspecified, I10 - Essential (primary) hypertension, J01.90 - Acute sinusitis, unspecified, R73.01 - Impaired fasting glucose Lipid Panel 08/14/24 E03.9 - Hypothyroidism, unspecified, E78.5 - Hyperlipidemia, unspecified, I10 - Essential (primary) hypertension, J01.90 - Acute sinusitis, unspecified, R73.01 - Impaired fasting glucose Free T4 (Free Thyroxine) 08/14/24 E03.9 - Hypothyroidism, unspecified, E78.5 - Hyperlipidemia, unspecified, I10 - Essential (primary) hypertension, J01.90 - Acute sinusitis, unspecified, R73.01 - Impaired fasting glucose Medications: New coQ10 (ubiquinol) (Qunol Hubert CoQ10) 100 mg PO DAILY 90 caps 2RF amoxicillin-pot clavulanate 875-125 mg 1 tab PO Q12H 20 tabs 0RF 10 days J01.90 - Acute sinusitis, unspecified
--- OUTSIDE RECORDS SUMMARY | 2024-03-20 11:39 | XMS_ITS | Clinical Summary ---
Author Organization [facility] [address] [facility] Address [address] [place] [address] Care Team Providers Care Agents' Records Clerk Name Role Phone Francesca Bass MD Primary Care Provider [phone] Allergies Active Allergy Reactions Criticality Noted Date Comments Iodinated Contrast Media Rash Low 11/29/2021 Amlodipine-Benazepril Hives High 11/29/2021 Medications omeprazole (PRILOSEC) 40 mg capsule Take 40 mg by mouth daily. Active atorvastatin (LIPITOR) 40 mg tablet Take 40 mg by mouth daily. Active metoprolol succinate XL (TOPROL-XL) 100 mg 24 hr tablet Take 100 mg by mouth daily. Take with or immediately following a meal. Active piroxicam (FELDENE) 10 mg capsule Take 10 mg by mouth daily. Active levothyroxine (SYNTHROID, LEVOTHROID) 50 MCG tablet Take 50 mcg by mouth daily. Active multivitamin capsule Take 1 capsule by mouth daily. Active cholecalciferol , vitamin D3, 25 mcg (1,000 unit) tablet Take 1,000 Units by mouth daily. Active aspirin 81 mg EC delayed release tablet Take 81 mg by mouth daily. Active Social History Tobacco Use Types Packs/Day Years Used Date Smoking Tobacco: Never Smokeless Tobacco: Never Alcohol Use Standard Drinks/Week Comments Not Asked 0 (1 standard drink = 0.6 oz pur e alcohol) rare Comments No Sex and Gender Information Value Date Recorded Sex Assigned at Not on file Legal Sex Female 8:42 AM EDT Gender Identity Female 11/29/2021 8:47 AM EDT Sexual Orientation Not on file Last Filed Vital Signs Vital Sign Reading Time Taken Comments Blood Pressure 151/79 11/29/2021 10:38 AM EDT Pulse 71 11/29/2021 10:38 AM EDT Temperature 36.9 ??C (98.4 ??F) 11/29/2021 8:47 AM ED T Respiratory Rate 16 11/29/2021 10:38 AM EDT Oxygen Saturation 98% 11/29/2021 10:38 AM EDT Inhaled Oxygen Concentration - - Weight 77.1 kg (170 lb) 11/29/2021 8:49 AM EDT Height 154.9 cm (5' 1 ) 11/29/2021 8:49 AM EDT Body Mass Index 32.12 11/29/2021 8:49 AM EDT Plan of Treatment Health Maintenance Due Date Last Done Comments HIV screening 1967 Hepatitis C screening 1972 Breast cancer screening 1994 Lipid disorder screening 1994 Colon cancer screening, Colonoscopy 1999 Diabetes screening 1999 Shingles vaccine (Shingrix) (1 of 2 - Shingrix (RZV) 2 Dose Standard Series) 2004 RSV Discussion (1 - Risk 60-74 years 1-dose series) 2014 Tetanus adult (Td q 10,TDAP once) 02/28/2016 02/27/2006 Osteoporosis screening (bone density) 2019 Pneumo Vaccine 65+ (1 of 1 - PCV) 2019 Influenza vaccine 09/15/2023 Covid-19 vaccine series ( season) 2023 05/05/2020, 04/07/2020 Cervical cancer screening Discontinued Meningococcal Vaccine Aged Out No ignacio itz eligible based on patient's age to complete this topic Insurance MEDICARE FOR LIFE MEDICARE FOR LIFE MEDICARE FOR LIFE Care Teams Agents' Records Clerk Relationship Specialty Start Date End Date Francesca Bass MD [facility] [place] [id number] PCP - General Internal Medicine 11/29/21
--- OUTSIDE RECORDS SUMMARY | 2024-03-20 11:39 | XMS_ITS | Continuity of Care Document ---
Author Name [facility] Organization [facility] Care Team Providers Care Director Music Name Role Phone [facility] Unavailable Unavailable Problems Combined list of problems from Department of [facility] and [facility] facilities. It does not include entries that were removed or entered in error. Problem Status Onset Date Problem Type Date of Resolution Comments Source Diagnosis: ICD-10-CM Z46.1 Encounter for fitting and adjustment of hearing aid Active Diagnosis [facility] [place] [facility] Diagnosis: ICD-10-CM H90.3 Sensorineural hearing loss, bilateral Active Diagnosis [facility] [place] [facility] Medications Combined list of outpatient medications from Department of [facility] and [facility] facilities.Medications provided include 1) outpatient medications from the last 15 months, and 2) patient-reported medications. Medication Details Route Status Patient Instructions Prescription Expires Prescription Number Last Dispense Date Ordering Provider Order Date Order Qty Source ALBUTEROL SULFATE HFA (albuterol sulfate), 90 MCG, HFA AER AD, INHALATION, [place], 8.5 g CANISTER Active [id number] 4 2023 25.5 Pharmac y Data Transac tion Service Facilit y ATORVASTATI N CALCIUM (atorvastat in calcium), 40 MG, TABLET, ORAL, LINDA PHARMACEU, 1000 ea. BOTTLE Active [id number] 4 2023 90 Pharmac y Data Transac tion Service Facilit y ATORVASTATI N CALCIUM (atorvastat in calcium), 80 MG, TABLET, ORAL, LINDA PHARMACEU, 500 ea. BOTTLE Active [id number] 4 2023 90 Pharmac y Data Transac tion Service Facilit y HYDROCHLORO THIAZIDE (hydrochlor othiazide), 12.5 MG, CAPSULE, ORAL, [place] PHA, 500 ea. BOTTLE Active [id number] 4 2023 90 Pharmac y Data Transac tion Service Facilit y HYDROCHLORO THIAZIDE (HYDROCHLOR OTHIAZIDE), 12.5MG, CAPSULE, ORAL, [facility], 500 ea. BOTTLE Active [id number] 4 2023 90 Pharmac y Data Transac tion Service Facilit y LEVOTHYROXI NE SODIUM (levothyrox ine sodium), 50 MCG, TABLET, ORAL, JOSE RANCH DC, 1000 ea. BOTTLE Active [id number] 4 2023 90 Pharmac y Data Transac tion Service Facilit y LEVOTHYROXI NE SODIUM (levothyrox ine sodium), 50 MCG, TABLET, ORAL, JOSE RANCH DC, 1000 ea. BOTTLE Active [id number] 4 2023 90 Pharmac y Data Transac tion Service Facilit y METOPROLOL SUCCINATE (metoprolol succinate), 100 MG, TAB ER 24H, ORAL, [place] [employer] 1000 ea. BOTTLE Active [id number] 4 2023 90 Pharmac y Data Transac tion Service Facilit y OMEPRAZOLE (omeprazole ), 40 MG, CAPSULE DR, ORAL, [employer], 500 ea. BOTTLE Active [id number] 4 2023 90 Pharmac y Data Transac tion Service Facilit y OMEPRAZOLE (omeprazole ), 40 MG, CAPSULE DR, ORAL, [employer]ARM, 500 ea. BOTTLE Active [id number] 4 2023 90 Pharmac y Data Transac tion Service Facilit y PIROXICAM (PIROXICAM) , 10 MG, CAPSULE, ORAL, AVKARE, 100 ea. BOTTLE Cancele d [id number] : 2023 0 Pharmac y Data Transac tion Service Facilit y PIROXICAM (PIROXICAM) , 10 MG, CAPSULE, ORAL, AVKARE, 100 ea. BOTTLE Active [id number] 4 2023 90 Pharmac y Data Transac tion Service Facilit y PIROXICAM (PIROXICAM) , 10 MG, CAPSULE, ORAL, AVKARE, 100 ea. BOTTLE Active [id number] 4 2023 90 Pharmac y Data Transac tion Service Facilit y Immunizations Combined list of available immunizations from the Department of Defense and Veterans Affairs facilities. Immunization Series Date Given Administered By Site Reaction Lot Number CVX Code Drug Tape Cutter Status Comments Source Novel influenza-H1N 1-09, injectable 1 2009 Unknown, Provider [id number] 1 127 [employer] [place] [employer]. (NOV) complet ed Novel influenza -C6E3-12, injectabl e DoD influenza virus vaccine, split virus (incl. purified surface antigen)-reti red CODE 1 2008 Unknown, Provider [id number] 2A 15 [employer]. (CS) complet ed influenza virus vaccine, split virus (incl. purified surface antigen)- retired CODE DoD influenza virus vaccine, split virus (incl. purified surface antigen)-reti red CODE 1 2007 Unknown, Provider [id number] 15 San[employer]i Pasteur ([facility]) complet ed influenza virus vaccine, split virus (incl. purified surface antigen)- retired CODE [facility] tuberculin skin test; purified protein derivative solution, intradermal 1 2007 Unknown, Provider [id number] 96 Sanofi Pasteur ([facility]) complet ed tuberculi n skin test; purified protein derivativ e solution, intraderm al DoD influenza virus vaccine, split virus (incl. purified surface antigen)-reti red CODE 1 2006 Unknown, Provider [id number] 15 Sanofi Pasteur ([facility]) complet ed influenza virus vaccine, split virus (incl. purified surface antigen)- retired CODE [facility] tuberculin skin test; purified protein derivative solution, intradermal 1 2006 Unknown, Provider [id number] 96 Sanofi Pasteur ([facility]) complet ed tuberculi n skin test; purified protein derivativ e solution, intraderm al DoD tetanus toxoid, reduced diphtheria toxoid, and acellular pertu is vaccine, adsorbed 1 2006 Unknown, Provider [id number] [address] [place] [address] (SKB) complet ed tetanus toxoid, reduced diphtheri a toxoid, and acellular pertussis vaccine, adsorbed DoD influenza virus vaccine, split virus (incl. purified surface antigen)-reti red CODE 1 2005 Unknown, Provider [id number] 15 Sanofi Pasteur ([facility]) complet ed influenza virus vaccine, split virus (incl. purified surface antigen)- retired CODE [facility] tuberculin skin test; purified protein derivative solution, intradermal 1 2005 Unknown, Provider [id number] 96 Sanofi Pasteur ([facility]) complet ed tuberculi n skin test; purified protein derivativ e solution, intraderm al DoD influenza virus vaccine, split virus (incl. purified surface antigen)-reti red CODE 1 2004 Unknown, Provider [id number] 15 Sanofi Pasteur ([facility]) complet ed influenza virus vaccine, split virus (incl. purified surface antigen)- retired CODE DoD tuberculin skin test; purified protein derivative solution, intradermal 1 2004 Unknown, Provider [id number] 96 Sanofi Pasteur ([facility]) complet ed tuberculi n skin test; purified protein derivativ e solution, intraderm al DoD influenza virus vaccine, whole virus 1 2004 Unknown, Provider [id number] 16 Sanofi Pasteur ([facility]) complet ed influenza virus vaccine, whole virus DoD typhoid Vi capsular polysaccharid e vaccine 1 2003 Unknown, Provider [id number] Sanofi Pasteur ([facility]) complet ed typhoid Vi capsular polysacch aride vaccine DoD influenza virus vaccine, whole virus 1 2002 Unknown, Provider [id number] 16 [facility]) complet ed influenza virus vaccine, whole virus DoD tuberculin skin test; purified protein derivative solution, intradermal 1 2002 Unknown, Provider [id number] 96 Sanofi Pasteur ([facility]) complet ed tuberculi n skin test; purified protein derivativ e solution, intraderm al DoD influenza virus vaccine, whole virus 1 2001 Unknown, Provider [id number] 16 Sanofi Pasteur ([facility]) complet ed influenza virus vaccine, whole virus DoD tuberculin skin test; purified protein derivative solution, intradermal 1 2001 Unknown, Provider [id number] 96 Sanofi Pasteur ([facility]) complet ed tuberculi n skin test; purified protein derivativ e solution, intraderm al DoD typhoid Vi capsular polysaccharid e vaccine 1 2001 Unknown, Provider [id number] Sanofi Pasteur ([facility]) complet ed typhoid Vi capsular polysacch aride vaccine DoD influenza virus vaccine, whole virus 1 2000 Unknown, Provider [id number] 16 Sanofi Pasteur ([facility]) complet ed influenza virus vaccine, whole virus DoD tuberculin skin test; purified protein derivative solution, intradermal 1 2000 Unknown, Provider [id number] 96 Sanofi Pasteur ([facility]) complet ed tuberculi n skin test; purified protein derivativ e solution, intraderm al DoD influenza virus vaccine, whole virus 1 1999 Unknown, [facility] [id number] [facility] complet ed influenza virus vaccine, whole virus [...] 1999 Unknown, Provider [id number] Sanofi Pasteur ([facility]) complet ed typhoid vaccine, parentera l, other than acetone-k illed, dried DoD measles, mumps and rubella virus vaccine 1 1999 Unknown, Provider [id number] 03 [employer]ck (MSD) complet ed measles, mumps and rubella virus vaccine DoD influenza virus vaccine, whole virus 1 1998 Unknown, Provider [id number] 16 [facility] complet ed influenza virus vaccine, whole virus DoD tuberculin skin test; purified protein derivative solution, intradermal 1 1998 Unknown, Provider [id number] [facility] complet ed tuberculi n skin test; purified protein derivativ e solution, intraderm al DoD yellow fever vaccine 1 1998 Unknown, Provider [id number] 37 Sanofi Pasteur ([facility]) complet ed yellow fever vaccine DoD tetanus and diphtheria toxoids, adsorbed, preservative free, for adult use (2 Lf of tetanus toxoid and 2 Lf of diphtheria toxoid) 1 1997 Unknown, Provider [id number] 09 Sanofi Pasteur ([facility]) complet ed tetanus and diphtheri a toxoids, adsorbed, preservat chiquis free, for adult use (2 Lf of tetanus toxoid and 2 Lf of diphtheri a toxoid) DoD influenza virus vaccine, whole virus 1 1997 Unknown, Provider [id number] 16 Sanofi Pasteur ([facility]) complet ed influenza virus vaccine, [...] ADM Date DC Date Status Disposition Source [facility] HEAR[facility] A[facility] EXAM BOTH EARS [id number] Diagnos is: ICD-10- CM H90.3 Sensori neural hearing loss, bilater al
SANDI WOMACK 10/06 [facility] HEARING SERVICE [id number] Diagnos is: ICD-10- CM Z46.1 Encount er [...]
== END 2024-03-20 11:51 | disposition home or self-care (01) ==
PROVIDERS: PCP Internal Medicine; Visit Provider Internal Medicine
DX: J01.00 Acute maxillary sinusitis, unspecified (principal); I10 Essential (primary) hypertension; E78.5 Hyperlipidemia, unspecified; E03.9 Hypothyroidism, unspecified; R73.01 Impaired fasting glucose

== ENCOUNTER → 2024-03-20 10:45 | Outpatient (BNVA) | payer MEDICARE, OTHER, SELFPAY | PROVIDERS: PCP Internal Medicine; Visit Provider Internal Medicine | DX: J01.00 Acute maxillary sinusitis, unspecified (principal); I10 Essential (primary) hypertension; E78.5 Hyperlipidemia, unspecified; R73.01 Impaired fasting glucose | CPT/HCPCS: 96127; 99212 ==

== ENCOUNTER → 2024-04-12 08:52 | Outpatient (BNVA) | payer MEDICARE, OTHER, SELFPAY | PROVIDERS: PCP Internal Medicine ==

== ENCOUNTER 2024-04-17 14:23 | Outpatient (REF) | payer MEDICARE, OTHER, SELFPAY ==
--- OUTSIDE RECORDS SUMMARY | 2024-04-17 20:01 | XMS_ITS | Clinical Summary ---
Author Organization [facility] [address] [facility] Address [address] [place] [address] Care Team Providers Care Advice Clerk Name Role Phone rFancesca Bass MD Primary Care Provider [phone] Allergies Active Allergy Reactions Criticality Noted Date [...] FOR LIFE MEDICARE FOR LIFE Care Teams Advice Clerk Relationship Specialty Start Date End Date Francesca Bass MD [facility] [address] [place], [place] [address] PCP - General Internal Medicine 11/29/21
--- OUTSIDE RECORDS SUMMARY | 2024-04-17 20:02 | XMS_ITS | Continuity of Care Document ---
Author Name [facility] Organization [facility] Care Team Providers Care Herpetology Teacher Name Role Phone [facility] Unavailable Unavailable Problems Combined list of problems [...] INHALATION, TEVA [place], 8.5 g CANISTER Active [id number] 4 2023 25.5 Pharmac y Data Transac tion Service Facilit y ATORVASTATI N CALCIUM (atorvastat in calcium), 40 MG, TABLET, ORAL, LINDA PHARMACEU, 1000 ea. BOTTLE Active [id number] 4 2023 90 Pharmac y Data Transac tion Service Facilit y ATORVASTATI N CALCIUM (atorvastat in calcium), 80 MG, TABLET, ORAL, LINDA PHARMACEU, 500 ea. BOTTLE Active [id number] 4 2023 90 Pharmac y Data Transac tion Service Facilit y HYDROCHLORO THIAZIDE (hydrochlor othiazide), 12.5 MG, CAPSULE, ORAL, WESTANKITSTKATHARINA PHA, 500 ea. BOTTLE Active [id number] 4 2023 90 Pharmac y Data Transac tion Service Facilit y HYDROCHLORO THIAZIDE (HYDROCHLOR OTHIAZIDE), 12.5MG, CAPSULE, ORAL, ARDON LABS, 500 ea. BOTTLE Active [id number] 4 2023 90 Pharmac y Data Transac tion Service Facilit y LEVOTHYROXI NE SODIUM (levothyrox ine sodium), 50 MCG, TABLET, ORAL, JOSE RANCH [place], 1000 ea. BOTTLE Active [id number] 4 2023 90 Pharmac y Data Transac tion Service Facilit y LEVOTHYROXI NE SODIUM (levothyrox ine sodium), 50 MCG, TABLET, ORAL, JOSE RANCH [place], 1000 ea. BOTTLE Active [id number] 4 2023 90 Pharmac y Data Transac tion Service Facilit y METOPROLOL SUCCINATE (metoprolol succinate), 100 MG, TAB ER 24H, ORAL, [employer] 1000 ea. BOTTLE Active [id number] 4 2023 90 Pharmac y Data Transac tion Service Facilit y OMEPRAZOLE (omeprazole ), 40 MG, CAPSULE DR, ORAL, AUROBINDO PHARM, 500 ea. BOTTLE Active [id number] 4 2023 90 Pharmac y Data Transac tion Service Facilit y OMEPRAZOLE (omeprazole ), 40 MG, CAPSULE DR, ORAL, AUROBINDO PHARM, 500 ea. BOTTLE Active [id number] 4 2023 90 Pharmac y Data Transac tion Service Facilit y PIROXICAM (PIROXICAM) , 10 MG, CAPSULE, ORAL, AVKARE, 100 ea. BOTTLE Cancele d [id number] : 2023 0 Pharmac y Data Transac tion Service Facilit y PIROXICAM (PIROXICAM) , 10 MG, CAPSULE, ORAL, AVKARE, 100 ea. BOTTLE Active [id number] 4 2023 90 Pharmac y Data Transac tion Service Facilit y PIROXICAM (PIROXICAM) , 10 MG, CAPSULE, ORAL, AVKARE, 100 ea. BOTTLE Active [id number] 4 2023 90 Pharmac y Data Transac tion Service Facilit y Immunizations Combined list of available immunizations from the Department of Defense and Veterans Affairs facilities. 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 (NOV) complet ed Novel influenza -[id number], injectabl e DoD influenza virus vaccine, split virus (incl. purified surface antigen)-reti red CODE 1 2008 Unknown, Provider [id number] 2A 15 [facility] [employer]. (CSL) complet ed influenza virus vaccine, split virus (incl. purified surface antigen)- retired CODE DoD influenza virus vaccine, split virus (incl. purified surface antigen)-reti red CODE 1 2007 Unknown, Provider [id number] 15 Sanofi Pasteur ([facility]) complet ed influenza virus vaccine, split virus (incl. purified surface antigen)- retired CODE DoD tuberculin skin test; purified protein derivative solution, intradermal 1 2007 Unknown, Provider [id number] 96 Sanofi Pasteur ([facility]) complet ed tuberculi n skin test; purified protein derivativ e solution, intraderm al DoD influenza virus vaccine, split virus (incl. purified surface antigen)-reti red CODE 1 2006 Unknown, Provider [id number] 15 Sanofi Pasteur ([facility]) complet ed influenza virus vaccine, split virus (incl. purified surface antigen)- retired CODE DoD tuberculin skin test; purified protein derivative solution, intradermal 1 2006 Unknown, Provider [id number] 96 [facility]) complet ed tuberculi n skin test; purified protein derivativ e solution, intraderm al DoD tetanus toxoid, reduced diphtheria toxoid, and acellular pertu is vaccine, adsorbed 1 2006 Unknown, Provider [id number] [address] [place] [address] ([facility]) complet ed tetanus toxoid, reduced diphtheri a toxoid, and acellular pertussis vaccine, adsorbed DoD influenza virus vaccine, split virus (incl. purified surface antigen)-reti red CODE 1 2005 Unknown, Provider [id number] 15 Sanofi Pasteur ([facility]) complet ed influenza virus vaccine, split virus (incl. purified surface antigen)- retired CODE DoD tuberculin skin test; purified protein derivative solution, intradermal 1 2005 Unknown, Provider [id number] 96 Sanofi Pasteur ([facility]) complet ed tuberculi n skin test; purified protein derivativ e solution, intraderm al DoD influenza virus vaccine, split virus (incl. purified surface antigen)-reti red CODE 1 2004 Unknown, Provider [id number] 15 Sanofi Pasteur ([facility]) complet ed influenza virus vaccine, split virus (incl. purified surface antigen)- retired CODE DoD tuberculin skin test; purified protein derivative solution, intradermal 1 2004 Unknown, Provider [id number] 96 Sanofi Pasteur ([facility]) complet ed tuberculi n skin test; purified protein derivativ e solution, intraderm al DoD influenza virus vaccine, whole virus 1 2004 Unknown, Provider [id number] 16 Sanofi Pasteur ([facility]) complet ed influenza virus vaccine, whole virus DoD typhoid Vi capsular polysaccharid e vaccine 1 2003 Unknown, Provider [id number] Sanofi Pasteur ([facility]) complet ed typhoid Vi capsular polysacch aride vaccine DoD influenza virus vaccine, whole virus 1 2002 Unknown, Provider [id number] 16 Miriam ([facility]) complet ed influenza virus vaccine, whole virus DoD tuberculin skin test; purified protein derivative solution, intradermal 1 2002 Unknown, Provider [id number] 96 Sanofi Pasteur ([facility]) complet ed tuberculi n skin test; purified protein derivativ e solution, intraderm al DoD influenza virus vaccine, whole virus 1 2001 Unknown, Provider [id number] 16 Sanofi Pasteur ([facility]) complet ed influenza virus vaccine, whole virus DoD tuberculin skin test; purified protein derivative solution, intradermal 1 2001 Unknown, Provider [id number] 96 Sanofi Pasteur ([facility]) complet ed tuberculi n skin test; purified protein derivativ e solution, intraderm al DoD typhoid Vi capsular polysaccharid e vaccine 1 2001 Unknown, Provider [id number] Sanofi Pasteur ([facility]) complet ed typhoid Vi capsular polysacch aride vaccine DoD influenza virus vaccine, whole virus 1 2000 Unknown, Provider [id number] 16 Sanofi Pasteur ([facility]) complet ed influenza virus vaccine, whole virus DoD tuberculin skin test; purified protein derivative solution, intradermal 1 2000 Unknown, Provider [id number] 96 Sanofi Pasteur ([facility]) complet ed tuberculi n skin test; purified protein derivativ e solution, intraderm al DoD influenza virus vaccine, whole virus 1 1999 Unknown, Provider [id number] [facility]) complet ed influenza virus [...] 1999 Unknown, Provider [id number] Sanofi Pasteur ([facility]) complet ed typhoid vaccine, parentera l, other than acetone-k illed, dried DoD measles, mumps and rubella virus vaccine 1 1999 Unknown, Provider [id number] Merck (MSD) complet ed measles, mumps and rubella virus vaccine DoD influenza virus vaccine, whole virus 1 1998 Unknown, Provider [id number] 16 [facility] ([facility]) complet ed influenza virus vaccine, whole virus DoD tuberculin skin test; purified protein derivative solution, intradermal 1 1998 Unknown, Provider [id number] 96 [facility] (CON) complet ed tuberculi n skin test; purified protein derivativ e solution, intraderm al DoD yellow fever vaccine 1 1998 Unknown, Provider [id number] 37 Sanofi Pasteur ([facility]) complet ed yellow fever vaccine DoD tetanus and diphtheria toxoids, adsorbed, preservative free, for adult use (2 Lf of tetanus toxoid and 2 Lf of diphtheria toxoid) 1 1997 Unknown, Provider [id number] Sanofi Pasteur ([facility]) complet ed tetanus and diphtheri a toxoids, adsorbed, preservat chiquis free, for adult use (2 Lf of tetanus toxoid and 2 Lf of diphtheri a toxoid) DoD influenza virus vaccine, whole virus 1 1997 Unknown, Provider [id number] 16 Sanofi Pasteur ([facility]) complet ed influenza virus vaccine, whole virus [...] ADM Date DC Date Status [facility] [id number] Diagnos is: ICD-10- CM Z46.1 Encount er for fitting and adjustm ent of hearing aid ASAEL QUIROGA 11/03 [facility] Social History Combined list of available smoking, tobacco, and other social history from Department of Defense and Veterans Affairs facilities. Social History Type Response Date Comment Sourc e This section is an empty social history section. [facility]
== END 2024-04-17 14:24 | disposition home or self-care (01) ==
LOC: HO.LNP 14:23
PROVIDERS: PCP Internal Medicine; Visit Provider Physician Assistant
DX: R30.0 Dysuria (principal); N76.0 Acute vaginitis
CPT/HCPCS: 81003; 87086; 99212

== ENCOUNTER 2024-04-17 14:23 | Outpatient (AMB) | payer MEDICARE, OTHER, SELFPAY ==
--- NOTE | 2024-04-17 14:25 | AM.OFFWIN_ITS ---
Intake Vital Signs 04/17/24 14:38 Weight 187 lb BP 136/90 H Blood Pressure Location Lt brachial Position Sitting Pulse 80 Pulse Source Pulse Oximeter Temp 98.1 F Temp Source Oral Pulse Oximetry (%) 98 Oxygen Delivery Method Room Air Intake Visit Reasons: EP ? UTI Patient Tobacco Use Status: Never used Tobacco Allergies amlodipine [From Lotrel] Allergy (Unknown, Verified 03/25/24 18:59) Rash benazepril [From Lotrel] Allergy (Unknown, Verified 03/25/24 18:59) Rash IVP dye Allergy (Unknown, Uncoded 03/25/24 18:59) rash HPI HPI Comments History of Present Illness Details This is a 69-year-old female with a past medical history of CLL, hypothyroidism, hyperlipidemia and hypertension presenting for evaluation of vaginal itching and urinary pressure that she has had for the past 4-5 days. Patient states she was recently treated with Augmentin for management of an a bacterial sinusitis. Patient states that her symptoms developed following the completion of this medication. She describes having vaginal itching without discharge and urinary pressure with urinary frequency. Patient denies having any fevers, chills, abdominal pain, nausea, vomiting or back pain. Patient has used topical Lotrimin and Azo with minimal relief of her symptoms. [facility] Medical History Nocturnal leg cramps Lymphocytosis Family history of peripheral vascular disease Hearing impairment Tinnitus of both ears Intermittent lightheadedness Exercise induced bronchospasm Tick bite of right upper arm History of gallstones Impaired fasting glucose Acquired hypothyroidism Carpal tunnel syndrome Mild acquired hearing loss GERD (gastroesophageal reflux disease) Keratitis, herpetic Dyslipidemia Osteoarthritis of spine Essential hypertension Surgical History History of myomectomy History of carpal tunnel surgery Hx of cholecystectomy Family History Father Arthritis CVD (cardiovascular disease) Mother Arthritis HTN (hypertension) Non-insulin dependent diabetes mellitus History of CVA (cerebrovascular accident) Brother No problems noted. Sister No problems noted. Sister Mental health disorder Sister Ovarian cancer Tubular adenoma Anemia Sister Factor V Leiden Anemia Social History Household Members: Family Housing: House Alcohol intake: current Alcohol intake frequency: holidays/special occasions only Patient Tobacco Use Status: Never used Tobacco e-Cigarette/Vaping Use: Never Used service: Yes Current occupational status: retired Gender identity: Female Cognitive needs: No Hearing needs: No Vision needs: Yes Review of Systems Const All systems reviewed & are unremarkable except as noted in HPI and below Denies chills, Denies fatigue, Denies fever(s) and Denies weakness Eyes Reports no additional complaints ENT Reports no additional complaints Card Reports no additional complaints Resp Reports no additional complaints GI Reports no additional complaints Denies urinary incontinence, Reports urinary urgency, Denies vaginal discharge and Reports vaginal pruritus Musc Reports no additional complaints Skin/Breast Reports system reviewed and no additional complaints, except as documented Neuro Reports no additional complaints and Denies weakness Psych Reports no additional complaints Endo Reports no additional complaints and Denies fatigue Krishna/Lymph Reports no additional complaints Aller/Immun Reports no additional complaints Physical Exam Vital Signs: Patient is afebrile. GI Palpation (GI): Soft to palpation and nontender General: Yes Bimanual renal exam normal bilaterally, Yes bladder normal to palpation and Yes no CVA tenderness Bimanual exam- vagina & uterus: bladder normal to palpation Back/Spine/Pelvis Back: no CVA tenderness Skin General skin exam: no rashes or lesions noted Psych Appearance: grossly normal Mental Status: mental status grossly normal Insight: Good insight present (Psych) Judgement: Good judgement present (Psych) Results AMB Urinalysis, Automated UA Leukoctes 125 Ama/uL Last Edit by KARIN Lucas on 04/17/24 14: 40 UA Nitrite Negative Last Edit by KARIN Lucas on 04/17/24 14:40 UA Urobilinogen 0.2 mg/dL Last Edit by KARIN Lucas on 04/17/24 14:40 UA Protein 15 mg/dL Last Edit by KARIN Lucas on 04/17/24 14:40 UA pH 6.0 Last Edit by KARIN Lucas on 04/17/24 14:40 UA Blood 25 Brett/uL Last Edit by KARIN Lucas on 04/17/24 14:40 UA Specific [place] 1.025 Last Edit by KARIN Lucas on 04/17/24 14:40 UA Ketone Negative Last Edit by KARIN Lucas on 04/17/24 14:40 UA Bilirubin 0 mg/dL Last Edit by KARIN Lucas on 04/17/24 14:40 UA Glucose 0 mg/dL Last Edit by KARIN Lucas on 04/17/24 14:40 Results Reviewed Results Reviewed: Urinalysis is reviewed. Urine culture is pending. Assessment & Plan Assessment & Plan (1) Dysuria: Comment: Patient's urinalysis is reviewed. A urine culture is pending at this time. Patient will be treated with antibiotic therapy. Code(s): R30.0 - Dysuria Plan: Keflex 500 mg q.6 hours x7 days. (2) Vaginitis: Comment: Formal pelvic examination is deferred. Patient will be treated empirically with Diflucan given that her urinalysis warrants further antibiotic therapy. Code(s): N76.0 - Acute vaginitis Qualifiers: Chronicity: acute Qualified Code(s): N76.0 - Acute vaginitis Plan: Diflucan 200 mg p.o. x1. Orders: Orders Urine Culture Today R30.0 - Dysuria AMB Urinalysis Automated Today Z13.9 - Encounter for screening, unspecified Medications: New cephalexin 500 mg PO QID 28 caps 0RF fluconazole (Diflucan) 200 mg PO DAILY 1 tab 0RF vaginitis Coding Level of Care Code Est Pt Level 3 (47631) Diagnoses Dysuria R30.0 Acute vaginitis N76.0 Chronicity: acute Time Spent (min) 20
[2024-04-17 14:38] VITALS: BP 136/90; PULSE 80; TEMP 36.7; O2SAT 98
--- OUTSIDE RECORDS SUMMARY | 2024-04-17 18:11 | XMS_ITS | Data Portability ---
Author Organization [place] - Wesley Barrios [facility], [facility] Address [address] [place] [address] Assessment Encounter Date Assessment Date Assessment LastModified by Organization Details LastModified Time 12/15/2023 12/15/2023 I am seeing the patient today under the supervision of Dr. Velazquez who was available but who did not see the patient. HPI: Patient is a 68 year old female presenting today for evaluation of right knee pain. Patient had an injury on Tuesday ascending stairs. [place] a pop in the back of the knee. Has felt sharp stabbing sensations along the medial aspect of the knee since. She denies any mechanical catching or locking although she feels some crepitance behind her kneecap. She has had a previous meniscus tear that did not need surgical intervention in the left knee. She saw Dr. Catalan for this. Past family, medical, social history and review of systems has been reviewed, updated and is located in the patient? s chart. Examination: The patient is well appearing and in no apparent distress. Alert and oriented x3. Gait is Antalgic favoring the right side. right knee reveals no evidence of any edema, erythema, or warmth. Varus Deformity. Range of motion of the knee full with mild discomfort at the end ranges. Mild effusion. Does have some tenderness to palpation about the medial hemijoint line. Patellofemoral crepitus is noted. No ligamentous laxity. Positive Caryl? s. Calf is supple and nontender. Neurovascularly intact distally. X-rays ordered, obtained and reviewed at [facility]. 4 views of the right knee today showed mild to moderate narrowing of the medial compartment of the knee. With slight osteophyte formation. Narrowing is noted of patellofemoral joint as well. No evidence of any other bony lesions or pathology. Impression: Rule out medial meniscus tear, with underlying osteoarthritis right knee Plan:I explained the nature of the diagnosis with the patient and its treatment options both conservative and surgical. Conservative measures were discussed at length including but not limited to physical therapy, bracing, anti-inflammatorie s and injection therapies. given that the patient feels symptoms are very similar to her left knee meniscus tear she would like MRI evaluation. I feel as if her physical exam and mechanism of injury match well enough with this to evaluate. We did discuss the mild osteoarthritis of the knee as a potential risk factor for knee arthroscopy. Will make more targeted decision based on MRI results. The patient understands and agrees with the plan. They know to call if they have any further questions or concerns regarding their symptoms, or to follow up sooner if needed. [email or web address] Not available 12/15/2023 10:41:38 02/29/2024 02/29/2024 I am seeing the patient today under the supervision of Dr. Boyer who was available but who did not see the patient. HPI: Patient comes in for recheck of right knee pain. Has known osteoarthritis patellofemoral joint. Has completed a course of physical therapy over the past 2 months or so after an MRI confirmed no significant meniscus tear and more severe patellofemoral arthritis. Her right knee is actually feeling somewhat better. She is having more difficulty over the anterior thigh no new injury. No other modalities. Is complaining of some pressure and burning as well as numbness in the thigh. She has had this problem in the past that has gone away on its own. Physical exam: The patient is well appearing and in no apparent distress. Alert and oriented x3. Gait is symmetric. Vital signs per intake sheet. Examination of right knee reveals mild joint effusion erythema or warmth. No joint line tenderness. Tenderness over the lateral border of the patella. Supple range of motion to 120??. No ligamentous instability. Calf soft and nontender. Assessment: Osteoarthritis patellofemoral joint, component of meralgia paresthetica right knee Plan: I explained the nature of the diagnosis with the patient and its treatment options both conservative and surgical. Conservative measures were discussed at length including but not limited to physical therapy, bracing, anti-inflammatorie s and injection therapies. Patient would like to try continued PT and HEP as well as antiinflammatory. Will follow up in 2 months for further evaluation. The patient understands and agrees with the plan. They know to call if they have any further questions or concerns regarding their symptoms, or to follow up sooner if needed. [email or web address] Not available 02/29/2024 12:46:08 Plan of Treatment Reminders Order Date Submit Date Provider Last Modified By Organization Details Last Modified Time Details Appointments RECHECK 15 2024 03:45P M Joni Mead PA-C Not available Not available Not available Lab None recorded. Referral None recorded. Procedures None recorded. Surgeries None recorded. Imaging MRI, knee, w/o contrast - r/o MMT injury 12/12 [facility] ([facility]), [address], [address], 01/09/2024 08:46:17 XR, knee, 4 or more view - new eval right knee pain room 110 2023 [facility] [address] [facility], [address], 01/09/2024 08:46:17 Medication Orders None recorded. Patient TargetsNo targets recorded. Patient InstructionsNo instructions recorded. Reason for Referral None Reported. Results Created Date Observation Date Name Description Value Unit Range Abnormal Flag Note LastModifiedBy Organization Detail LastModifiedTime 12/15/1912/15/2023 XR, knee, 4 or more view [email or web address] ?Encry pted=s hAaTro YD8dLq bEUv6g %2BXZw aYqtaq 0bqfl% 2Fg9IQ a4ajBk vP9nXo QUaueC m3YtLR FvZlgJ JJ8mAn HZtai3 1t0241 AC0Kqa H6CVqu hKiQtr MwF INTERFACE [facility] [address], [place], [address], 12/15/2023 08:55:07 12/15/1912/15/2023 XR, knee, 4 or more view [email or web address] ?Encry pted=s hAaTro YD8dLq bEUv6g %2BXZw aYqtaq 0bqfl% 2Fg9IQ a4ajBk vP9nXo QUaueC m3YtLR FvZlgJ JJ8mAn HZtai3 6j2525 AC0Kqa H6CVqu hKiQtr MwF INTERFACE [facility] [address], [place], [address], 12/15/2023 08:55:09 12/22/19 24 12/20/2023 MRI, knee, w/o contr ast [facility] Access ion Number : [id number] Patien t Name: Melba Kline Record Number : [id number] Date of : 1955 Date of Exam: 2023 Referr ing Physic linette: Shira Mead [facility] [address] [place] [address] Exam: MR Knee (C-) CPT 59210 - Right Room Descri ption: Rooks GE Pion 3T Histor y: Persis tent pain and swelli ng for the past 2 weeks. 3 No histor y of a previo us injury or surger y to this region is provid ed. Techni que: MRI of the labele d right knee was perfor med withou t intrav enous contra st. Compar luke: None on record at the time of interp retati on. Findin gs: Soft tissue s: Small bilobe d Gill' s cyst cyst measur ing 4 to 5 cm in cait l cranio caudal dimens ion withou t underl jing joint effusi on. Menisc i: Linear degene rative signal in the menisc i, no eviden ce of underl jing menisc al tears. Tendon s and ligame nts: Intact . Articu lar cartil age: Severe thinni ng medial patell ar facet extend ing to the median ridge mostly cephal ad withou t subcho ndral edema. Otherw ise articu lar cartil age is of normal thickn ess for age withou t focal defect s. Bone: No acute abnorm alitie s, no focal osseou s lesion s. Impres reyes: 1. Patell ofemor al chondr omalac ia. 2. Other mild degene rative change s as noted. 3. Small Gill' s cyst. Electr onical ly Signed By: Karen [email or web address] [facility] ([facility]) [address], [place], [address], 12/27/2023 07:41:30 Result Notes None recorded. Problems Name Problem SNOMED Code Status Onset Date Resolution Date Notes Provider Name and Address Organization Details Recorded Time Pain of right knee joint 638162819978346 Active 2023 MOLLY cui [place] - [facility] 08:47:46 Problem Notes None recorded. Procedures Surgical History None recorded. Imaging Results Imaging Date Name Status LastModified by Organiz ation Details LastModified Time 12/15/2023 XR, knee, 4 or more view completed INTERFACE [employer] [facility] [address], [place], [address], 12/15/2023 08:55:07 12/15/2023 XR, knee, 4 or more view completed INTERFACE [employer] [facility] [address], [place], [address], 12/15/2023 08:55:09 12/20/2023 MRI, knee, w/o contrast completed [email or web address] [facility] ([facility]) [address], [place], [address], 12/27/2023 07:41:30 Procedure Notes None recorded. Medical Equipment None Reported. Allergies Allergen ID Allergen Name Allergen Category Reaction Reaction Severity Criticality Documentation Date Start Date Code Code System Note Provider Name and Address Organization Details Recorded Time 942228 Iodinated contrast media (substanc e) medicatio n Not available Not available Not available 04/18/20232022 11390 2003 SNOMED Aller gyNam e: 'ivp dye'; Not Available [facility] 15:13:38 176589 iodine medicatio n Not available Not available Not available 04/18/20232022 5933 RxNorm Not Available [facility] 15:13:38 Medications Name Sig Start Date Stop Date Status Note LastModified by Organization Details LastModified Time atorvastatin 40 mg tablet active Not Available Not Available Not Available atorvastatin 80 mg tablet active Not Available Not Available Not Available metoprolol succinate ER 100 mg tablet,extend ed release 24 hr active Not Available Not Available Not Available omeprazole 40 mg capsule,delay ed release active Not Available Not Available N ot Available triamcinolone acetonide 0.1 % topical cream 1 APPL TOPICALLY 2 TIMES A DAY FOR 10 DAYS active Not Available Not Available No t Available levothyroxine 50 mcg tablet active Not Available Not Availabl e Not Available hydrochloroth iazide 12.5 mg capsule active Not Available Not Available N ot Available piroxicam 10 mg capsule active Not Available Not Available N ot Available cefuroxime axetil 500 mg tablet TAKE 1 TABLET BY MOUTH EVERY 12 HOURS active Not Available Not Available No t Available albuterol sulfate HFA 90 mcg/actuation aerosol inhaler active Not Available Not Available Not Available magnesium 250 mg (as magnesium oxide) tablet TAKE 1 TABLET BY MOUTH EVERY DAY active Not Available Not Available No t Available Low Dose Aspirin 81 mg tablet,delaye d release Take 1 tablet every day by oral route. active Not Available Not Available No t Available Vitamin D active Not Available Not Leny ilable Not Available Vitals Date Recorded Body height Body mass index (BMI) Body weight Provider Name and Address Organization Details Last Updated DateTime 12/15/2023 154.94 cm 34 kg/m2 76776.63 g KAYLIA L'HEUREUX [facility] 12/15/2023 08:45:52 Date Recorded Body height Body mass index (BMI) Body weight Provider Name and Address Organization Details Last Updated DateTime 02/29/2024 154.94 cm 34 kg/m2 64091.63 g KAYLIA L'HEUREUX [facility] 02/29/2024 09:41:42 Social History Question Answer Notes LastModified by Organizat ion Details LastModified Time Tobacco Smoking Status Never Smoker MOLLY L'HEUREURafaela cui [facility] 12/15/2023 08:47:09 What Is Your Level Of Alcohol Consumption? Occasional Information not available 12/15/2023 How Many Times Per Week Do You Consume Alcohol? Less Than 1 Time Per Week Information not available 12/15/2023 Have You Ever Been Counseled For Unhealthy Alcohol Use? No Information not available 12/15/2023 What Is Your Relationship Status? Single Information not available 12/15/2023 Do You Use Any Illicit Or Recreational Drugs? No Information not available 12/15/2023 Do You Or Have You Ever Used Any Other Forms Of Tobacco Or Nicotine? No Information not available 12/15/2023 Sex: Unknown Functional Status None recorded. Mental Status None recorded. Family History Nothing Reported. Medical History Condition Response Allergies/Hayfever N Coronary Artery Disease N Anxiety/Depression N Breathing or lung disorders N Emphysema N Nerve Disorders N Thyroid Problems Y COPD N Pacemaker N Anemia N Kidney/Bladder Problems N Vascular Disease N Heart Trouble N Heart Attack (SD) N Gastrointestinal Disease N Cholesterol Y Diabetes N Autoimmune disease N Inflammatory Joint disease Y Bleeding Disorder N Orthotics N Arthritis Y Seizures/Epilepsy N Blood Clot N AIDS/HIV N Congestive Heart Failure (CHF) N Acid Reflux (GERD) Y Cancer N Stroke N Asthma N Circulation Problems N Peripheral Vascular Disease N Sleep Apnea N Hepatitis N Heart Disease N Rheumatoid Arthritis N Arrhythmia N Pulmonary Embolism N Headaches N Fibromyalgia N Hypertension Y Osteoporosis N Gynecological HistoryNo gynecological history recorded. Obstetrics History GPAL:G 0 P 0 0 0 0 Past Encounters Encounter ID Performer Location Encounter Start Date Encounter Closed Date Diagnosis/Indication Diagnosis SNOMED-CT Code Diagnosis ICD10 Code Diagnosis Note [id number] BR[facility] Lopez [address] [place] [address] 12/15/2023 08:30:58 01/09/2024 08:46:17 Pain of right knee joint 8483705802 17363 M25.561 Osteoarthr itis of right knee joint 2061652165 97984 M17.11 Derangemen t of right knee 9276503227 1821771 M23.91 [id number] BRAD Lopez [address] [place] [address] 02/29/2024 09:29:56 03/12/2024 13:03:36 Osteoarthritis of right knee joint 7362257253 04702 M17.11 Health Concerns Section Related Observation LastModified by Organization Detai ls LastModified Time None Recorded Concern Status LastModified by Organization Details LastModified Time None Recorded Advance Directives Directive None Recorded Payers Encounter Date Sequence Insurance Name Policy Number Policy Whitt Covered Member ID Whitt Member ID Guarantor Name 12/15/2023 2 [employer] - FOR LIFE (MEDICARE SUPPLEMENT) Melba Riverac [id number] Melba Riverac 12/15/2023 1 [place]ARE [place] [facility] [employer] Melba Riverac [id number] Melba iRverac 02/29/2024 2 WPS - FOR LIFE (MEDICARE SUPPLEMENT) Melba Riverac [id number] Melba Riverac 02/29/2024 1 [place] [facility] Melba Riverac [id number] Melba Riverac OBGyn Episode No OBEpisode recorded.
--- OUTSIDE RECORDS SUMMARY | 2024-04-17 18:11 | XMS_ITS | Continuity of Care Document ---
Author Name [facility] Organization [facility] Care Team Providers Care Meat Smoker Name Role Phone [facility] Unavailable Unavailable Problems Combined list of problems from Department of Defense and Veterans Affairs facilities. It does not include entries that were removed or entered in error. Problem Status Onset Date Problem Type Date of Resolution Comments Source Diagnosis: ICD-10-CM Z46.1 Encounter for fitting and adjustment of hearing aid Active Diagnosis [facility] Medications Combined list of outpatient medications from Department of Defense and Veterans Affairs facilities.Medications provided include 1) outpatient medications from the last 15 months, and 2) patient-reported medications. Medication Details Route Status Patient Instructions Prescription Expires Prescription Number Last Dispense Date Ordering Provider Order Date Order Qty Source ALBUTEROL SULFATE HFA (albuterol sulfate), 90 MCG, HFA AER AD, INHALATION, TEVA [place], 8.5 g CANISTER Active [id number] 4 2023 25.5 Pharmac y Data Transac tion Service Facilit y ATORVASTATI N CALCIUM (atorvastat in calcium), 40 MG, TABLET, ORAL, LINDA PHARMACEU, 1000 ea. BOTTLE Active [id number] 4 2023 90 Pharmac y Data Transac tion Service Facilit y ATORVASTATI N CALCIUM (atorvastat in calcium), 80 MG, TABLET, ORAL, LINDA PHARMACEU, 500 ea. BOTTLE Active [id number] 4 2023 90 Pharmac y Data Transac tion Service Facilit y HYDROCHLORO THIAZIDE (hydrochlor othiazide), 12.5 MG, CAPSULE, ORAL, WESTANKITSTKATHARINA PHA, 500 ea. BOTTLE Active [id number] 4 2023 90 Pharmac y Data Transac tion Service Facilit y HYDROCHLORO THIAZIDE (HYDROCHLOR OTHIAZIDE), 12.5MG, CAPSULE, ORAL, ARDON LABS, 500 ea. BOTTLE Active [id number] 4 2023 90 Pharmac y Data Transac tion Service Facilit y LEVOTHYROXI NE SODIUM (levothyrox ine sodium), 50 MCG, TABLET, ORAL, JOSE RANCH [place], 1000 ea. BOTTLE Active [id number] 4 2023 90 Pharmac y Data Transac tion Service Facilit y LEVOTHYROXI NE SODIUM (levothyrox ine sodium), 50 MCG, TABLET, ORAL, JOSE RANCH [place], 1000 ea. BOTTLE Active [id number] 4 2023 90 Pharmac y Data Transac tion Service Facilit y METOPROLOL SUCCINATE (metoprolol succinate), 100 MG, TAB ER 24H, ORAL, [employer] 1000 ea. BOTTLE Active [id number] 4 2023 90 Pharmac y Data Transac tion Service Facilit y OMEPRAZOLE (omeprazole ), 40 MG, CAPSULE DR, ORAL, AUROBINDO PHARM, 500 ea. BOTTLE Active [id number] 4 2023 90 Pharmac y Data Transac tion Service Facilit y OMEPRAZOLE (omeprazole ), 40 MG, CAPSULE DR, ORAL, AUROBINDO PHARM, 500 ea. BOTTLE Active [id number] 4 2023 90 Pharmac y Data Transac tion Service Facilit y PIROXICAM (PIROXICAM) , 10 MG, CAPSULE, ORAL, AVKARE, 100 ea. BOTTLE Cancele d [id number] : 2023 0 Pharmac y Data Transac tion Service Facilit y PIROXICAM (PIROXICAM) , 10 MG, CAPSULE, ORAL, AVKARE, 100 ea. BOTTLE Active [id number] 4 2023 90 Pharmac y Data Transac tion Service Facilit y PIROXICAM (PIROXICAM) , 10 MG, CAPSULE, ORAL, AVKARE, 100 ea. BOTTLE Active [id number] 4 2023 90 Pharmac y Data Transac tion Service Facilit y Immunizations Combined list of available immunizations from the Department of Defense and Veterans Affairs facilities. Immunization Series Date Given Administered By Site Reaction Lot Number CVX Code Drug Retention Representative Status Comments Source Novel influenza-H1N 02-22, injectable 1 2009 Unknown, Provider [id number] 1 127 [employer] Cordell. (NOV) complet ed Novel influenza -[id number], injectabl e DoD influenza virus vaccine, split virus (incl. purified surface antigen)-reti red CODE 1 2008 Unknown, Provider [id number] 2A 15 [facility] [employer]. (CSL) complet ed influenza virus vaccine, split virus (incl. purified surface antigen)- retired CODE DoD influenza virus vaccine, split virus (incl. purified surface antigen)-reti red CODE 1 2007 Unknown, Provider [id number] 15 Sanofi Pasteur ([facility]) complet ed influenza virus vaccine, split virus (incl. purified surface antigen)- retired CODE DoD tuberculin skin test; purified protein derivative solution, intradermal 1 2007 Unknown, Provider [id number] 96 Sanofi Pasteur ([facility]) complet ed tuberculi n skin test; purified protein derivativ e solution, intraderm al DoD influenza virus vaccine, split virus (incl. purified surface antigen)-reti red CODE 1 2006 Unknown, Provider [id number] 15 Sanofi Pasteur ([facility]) complet ed influenza virus vaccine, split virus (incl. purified surface antigen)- retired CODE DoD tuberculin skin test; purified protein derivative solution, intradermal 1 2006 Unknown, Provider [id number] 96 [facility]) complet ed tuberculi n skin test; purified protein derivativ e solution, intraderm al DoD tetanus toxoid, reduced diphtheria toxoid, and acellular pertu is vaccine, adsorbed 1 2006 Unknown, Provider [id number] [address] [place] [address] ([facility]) complet ed tetanus toxoid, reduced diphtheri a toxoid, and acellular pertussis vaccine, adsorbed DoD influenza virus vaccine, split virus (incl. purified surface antigen)-reti red CODE 1 2005 Unknown, Provider [id number] 15 Sanofi Pasteur ([facility]) complet ed influenza virus vaccine, split virus (incl. purified surface antigen)- retired CODE DoD tuberculin skin test; purified protein derivative solution, intradermal 1 2005 Unknown, Provider [id number] 96 Sanofi Pasteur ([facility]) complet ed tuberculi n skin test; purified protein derivativ e solution, intraderm al DoD influenza virus vaccine, split virus (incl. purified surface antigen)-reti red CODE 1 2004 Unknown, Provider [id number] 15 Sanofi Pasteur ([facility]) complet ed influenza virus vaccine, split virus (incl. purified surface antigen)- retired CODE DoD tuberculin skin test; purified protein derivative solution, intradermal 1 2004 Unknown, Provider [id number] 96 Sanofi Pasteur ([facility]) complet ed tuberculi n skin test; purified protein derivativ e solution, intraderm al DoD influenza virus vaccine, whole virus 1 2004 Unknown, Provider [id number] 16 Sanofi Pasteur ([facility]) complet ed influenza virus vaccine, whole virus DoD typhoid Vi capsular polysaccharid e vaccine 1 2003 Unknown, Provider [id number] Sanofi Pasteur ([facility]) complet ed typhoid Vi capsular polysacch aride vaccine DoD influenza virus vaccine, whole virus 1 2002 Unknown, Provider [id number] 16 Miriam ([facility]) complet ed influenza virus vaccine, whole virus DoD tuberculin skin test; purified protein derivative solution, intradermal 1 2002 Unknown, Provider [id number] 96 Sanofi Pasteur ([facility]) complet ed tuberculi n skin test; purified protein derivativ e solution, intraderm al DoD influenza virus vaccine, whole virus 1 2001 Unknown, Provider [id number] 16 Sanofi Pasteur ([facility]) complet ed influenza virus vaccine, whole virus DoD tuberculin skin test; purified protein derivative solution, intradermal 1 2001 Unknown, Provider [id number] 96 Sanofi Pasteur ([facility]) complet ed tuberculi n skin test; purified protein derivativ e solution, intraderm al DoD typhoid Vi capsular polysaccharid e vaccine 1 2001 Unknown, Provider [id number] Sanofi Pasteur ([facility]) complet ed typhoid Vi capsular polysacch aride vaccine DoD influenza virus vaccine, whole virus 1 2000 Unknown, Provider [id number] 16 Sanofi Pasteur ([facility]) complet ed influenza virus vaccine, whole virus DoD tuberculin skin test; purified protein derivative solution, intradermal 1 2000 Unknown, Provider [id number] 96 Sanofi Pasteur ([facility]) complet ed tuberculi n skin test; purified protein derivativ e solution, intraderm al DoD influenza virus vaccine, whole virus 1 1999 Unknown, Provider [id number] 16 [facility]) complet ed influenza virus vaccine, [...] 1999 Unknown, Provider [id number] Sanofi Pasteur ([facility]) complet ed typhoid vaccine, parentera l, other than acetone-k illed, dried DoD measles, mumps and rubella virus vaccine 1 1999 Unknown, Provider [id number] 03 Merck (MSD) complet ed measles, mumps and rubella virus vaccine DoD influenza virus vaccine, whole virus 1 1998 Unknown, Provider [id number] 16 [facility] ([facility]) complet ed influenza virus vaccine, whole virus DoD tuberculin skin test; purified protein derivative solution, intradermal 1 1998 Unknown, Provider [id number] 96 [facility] (CON) complet ed tuberculi n skin test; purified protein derivativ e solution, intraderm al DoD yellow fever vaccine 1 1998 Unknown, Provider [id number] 37 Sanofi Pasteur ([facility]) complet ed yellow fever vaccine DoD tetanus and diphtheria toxoids, adsorbed, preservative free, for adult use (2 Lf of tetanus toxoid and 2 Lf of diphtheria toxoid) 1 1997 Unknown, Provider [id number] 09 Sanofi Pasteur ([facility]) complet ed tetanus and diphtheri a toxoids, adsorbed, preservat chiquis free, for adult use (2 Lf of tetanus toxoid and 2 Lf of diphtheri a toxoid) DoD influenza virus vaccine, whole virus 1 1997 Unknown, Provider [id number] 16 Sanofi Pasteur ([facility]) complet ed influenza virus vaccine, whole [...] from Department of Veterans Affairs facilities going backup to the last 18 months, not all VA inpatient encounters are included; 2) Encounters from the Department of Defense facilities going backup to 280 months. Location Location Details Encounter Type Encounter Number Reason For Visit Attending Provider ADM Date DC Date Status [facility] [id number] Diagnos is: ICD-10- CM Z46.1 Encount er for fitting and adjustm ent of hearing aid [facility] Social History Combined list of available smoking, tobacco, and other social history from Department of Defense and Veterans Affairs facilities. Social History Type Response Date Comment Sourc e This section is an empty social history section. [facility]
--- OUTSIDE RECORDS SUMMARY | 2024-04-17 18:11 | XMS_ITS | Clinical Summary ---
Author Organization [facility] [address] [facility] Address [address] [place] [address] Care Team Providers Care Palliative Senior Np Name Role Phone Francesca Bass MD Primary Care Provider [phone] Allergies Active Allergy Reactions Criticality Noted Date [...] 02/28/2016 02/27/2006 Osteoporosis screening (bone density) 2019 Pneumococcal Vaccine (50+ years) (1 of 1 - PCV) 2019 Influenza vaccine 09/15/2023 Covid-19 vaccine series (2023- season) 2023 05/05/2020, 04/07/2020 Cervical cancer screening Discontinued Meningococcal Vaccine Aged Out No ignacio itz eligible based on patient's age to complete this topic Insurance MEDICARE FOR LIFE MEDICARE FOR LIFE MEDICARE FOR LIFE Care Teams Palliative Senior Np Relationship Specialty Start Date End Date Francesca Bass MD [facility] [address], [place] [address] PCP - General Internal Medicine 11/29/21
== END 2024-04-17 14:52 | disposition home or self-care (01) ==
PROVIDERS: PCP Internal Medicine; Visit Provider Physician Assistant
DX: R30.0 Dysuria (principal); N76.0 Acute vaginitis; Z13.9 Encounter for screening, unspecified

== ENCOUNTER → 2024-04-27 10:46 | Outpatient (BNVA) | payer MEDICARE, OTHER, SELFPAY | PROVIDERS: PCP Internal Medicine ==

== ENCOUNTER 2024-08-10 07:20 | Outpatient (REF) | payer MEDICARE, OTHER, SELFPAY ==
--- OUTSIDE RECORDS SUMMARY | 2024-08-10 07:22 | XMS_ITS | Clinical Summary ---
Author Organization [facility] 52 [facility] Address [address] [place] [address] Care Team Providers Care Verification Manager Name Role Phone Francesca Bass MD Primary Care Provider [phone] Allergies Active Allergy Reactions Criticality Noted Date [...] 71 11/29/2021 10:38 AM EDT Temperature 36.9 C (98.4 F) 11/29/2021 8:47 AM EDT Respiratory Rate 16 11/29/2021 10:38 AM EDT [...] cancer screening, Colonoscopy 1999 Diabetes screening 1999 Pneumococcal Vaccine (50+ years) (1 of 1 - PCV) 2004 Shingles vaccine (Shingrix) (1 of 2 - Shingrix (RZV) 2 Dose Standard Series) 2004 Tetanus adult (Td q 10,TDAP once) 02/28/2016 02/27/2006 Osteoporosis screening (bone density) 2019 Covid-19 vaccine series ( - 2023- season) 2023 05/05/2020, 04/07/2020 Influenza vaccine 10/15/2024 RSV Immunization (1 - 1-dose 75+ series) 2029 Cervical cancer screening Discontinued Meningococcal Vaccine Aged Out No ignacio itz eligible based on patient's age to complete this topic Insurance MEDICARE FOR LIFE MEDICARE FOR LIFE MEDICARE FOR LIFE Care Teams Verification Manager Relationship Specialty Start Date End Date Francesca Bass MD [facility] [place] [address] PCP - General Internal Medicine 11/29/21
[2024-08-10 08:09] LABS: Estimated Average Glucose 140 mg/dL; Hemoglobin A1c % 6.5 % (<6.0)
[2024-08-10 08:36] LABS: Alanine Aminotransferase 57 U/L (0-31); Anion Gap 14 (12-20); Aspartate Amino Transferase 30 U/L (5-31); Blood Urea Nitrogen 20 mg/dL (9-16); Calcium 9.6 mg/dL (8.4-10.2); Carbon Dioxide 27 mmol/L (22-29); Chloride 103 mmol/L (96-108); Cholesterol 393 mg/dL (<200); Estimated Glomerular Filt Rate > 60; Glucose Fasting 130 mg/dL (60-99); HDL Cholesterol 40 mg/dL (>40); LDL Cholesterol Calculated 280 mg/dL (<100); Potassium 3.8 mmol/L (3.3-5.1); Sodium 140 mmol/L (135-145); Triglycerides 368 mg/dL (<150)
[2024-08-10 08:57] LABS: Free T4 (Free Thyroxine) 0.95 ng/dL (0.71-1.85); Thyroid Stimulating Hormone 2.76 uIU/mL (0.32-4.0); Vitamin D 25-OH Total 38.2 ng/mL (>30)
== END 2024-08-10 07:21 | disposition home or self-care (01) ==
LOC: HO.LAB 07:20
PROVIDERS: PCP Internal Medicine; Visit Provider Internal Medicine
DX: J01.90 Acute sinusitis, unspecified (principal); I10 Essential (primary) hypertension; E78.5 Hyperlipidemia, unspecified; E03.9 Hypothyroidism, unspecified; R73.01 Impaired fasting glucose
CPT/HCPCS: 36415; 80048; 80061; 82306; 82550; 83036; 84439; 84443; 84450; 84460

== ENCOUNTER 2024-08-14 14:35 | Outpatient (REF) | payer MEDICARE, OTHER, SELFPAY ==
--- OUTSIDE RECORDS SUMMARY | 2024-08-14 15:40 | XMS_ITS ---
Author Name [facility] Organization Unknown Encounters Encounter Type Encounter Reason Primary Diagnosis Location Date Emergency Pain in joint, l mary conn [facility] 11/29/2021 Care Team Organization Name Specialty Phone Email Start Date End [facility] Francesca Bass Primary Care 11/29/2021 11/29/2021
--- OUTSIDE RECORDS SUMMARY | 2024-08-14 15:40 | XMS_ITS | Clinical Summary ---
Author Organization [facility] 52 [facility] Address [address] [place] [address] Care Team Providers Care Judicial Clerk Name Role Phone Francesca Bass MD Primary Care Provider [phone] Allergies Active Allergy Reactions Criticality Noted Date [...] FOR LIFE MEDICARE FOR LIFE Care Teams Judicial Clerk Relationship Specialty Start Date End Date Francesca Bass MD [facility] [place] [address] PCP - General Internal Medicine 11/29/21
--- OUTSIDE RECORDS SUMMARY | 2024-08-14 15:40 | XMS_ITS | Data Portability ---
Author Organization [facility], [facility] Address [address] [place] [address] Assessment Encounter Date Assessment Date Assessment LastModified by Organization Details LastModified Time 12/15/2023 12/15/2023 I am seeing the patient today under the supervision of Dr. Velazquez who was available but who did not see the patient. HPI: Patient is a 68 year old female presenting today for evaluation of right knee pain. Patient had an injury on Tuesday ascending stairs. [place] a pop in the back of the [...] reviewed, updated and is located in the patient s chart. Examination: The patient is well [...] crepitus is noted. No ligamentous laxity. Positive Caryl s. Calf is supple and nontender. Neurovascularly intact distally. X-rays ordered, obtained and reviewed at [facility]. 4 views of the right [...] or to follow up sooner if needed. [email or web address] Not available 12/15/2023 10:41:38 02/29/2024 02/29/2024 I [...] the patella. Supple range of motion to 120 . No ligamentous instability. Calf soft and nontender. [...] or to follow up sooner if needed. [email or web address] Not available 02/29/2024 12:46:08 Plan of Treatment Reminders Order Date Submit Date Provider Last Modified By Organization Details Last Modified Time Details Appointments None recorded. Lab None recorded. Referral None recorded. Procedures None recorded. Surgeries None recorded. Imaging MRI, knee, w/o contrast - r/o MMT injury 12/12 [facility] ([facility]), [address], [place], [address], 4 08:46:17 XR, knee, 4 or more view - new eval right knee pain room 110 [facility] [address], [place], [address], 4 08:46:17 Medication Orders None recorded. Patient TargetsNo targets recorded. Patient InstructionsNo instructions recorded. Reason for Referral None Reported. Results Created Date Observation Date Name Description Value Unit Range Abnormal Flag Note LastModifiedBy Organization Detail LastModifiedTime 12/15/1912/15/2023 XR, knee, 4 or more view http:/ [email or web address] ?Encry pted=s hAaTro YD8dLq bEUv6g %2BXZw aYqtaq 0bqfl% 2Fg9IQ a4ajBk vP9nXo QUaueC m3YtLR FvZlgJ JJ8mAn HZtai3 6o8591 AC0Kqa H6CVqu hKiQtr MwF INTERFACE [facility] [address], [place], [address], 12/15/2023 08:55:07 12/15/1912/15/2023 XR, knee, 4 or more view http:/ [email or web address] ?Encry pted=s hAaTro YD8dLq bEUv6g %2BXZw aYqtaq 0bqfl% 2Fg9IQ a4ajBk vP9nXo QUaueC m3YtLR FvZlgJ JJ8mAn HZtai3 9p5876 AC0Kqa H6CVqu hKiQtr MwF INTERFACE [facility] [address], [place], [address], 12/15/2023 08:55:09 12/22/19 24 12/20/2023 MRI, knee, w/o contr ast [facility] Access ion Number : [id number] Patien t Name: Melba Kline Record Number : [id number] Date of : 1955 Date of Exam: 2023 Referr ing Physic linette: Shira Mead NEOS [address] [place] [address] Exam: MR Knee (C-) CPT 19780 - Right Room Descri ption: [place] GE Pion 3T Histor y: Persis tent [...] cyst. Electr onical ly Signed By: Karen [email or web address] [facility] ([facility]) [address], [place], [address], 12/27/2023 07:41:30 Result Notes Documentation Provider Name and Address Organization Details Recorded Time Xr, Knee, 4 Or More View : [email or web address] Encrypted=qpQeMnuRP8lZfuK Uv6g%2BVFblFnndl4fbfv%2Fg 5YPy3pkKizE3rQcQIyxgLt3Za PHZtBbhGZT5mRbFMqmv01u575 0YP9QxlS4IZemzIqQboWpT Not Available [facility] 12/15/2023 08:55:07 Xr, Knee, 4 Or More View : [email or web address] Encrypted=lrDoVleDS4uHaqY Uv6g%4NYGiwVyvgc2sstb%2Fg 2YCq3igRbgM9bFqUKaqwOd2Mk BLWvBvqFCM6nZmQPgwq95p952 6PR8BxsO1TCxdkPeLakRtQ Not Available [facility] 12/15/2023 08:55:09 Mri, Knee, W/o Contrast : [facility] Accession Number: [id number] Patient Name: Melba Kline Date of : 1955 Date of Exam: 12-20-2023 Referring Physician: Joni Mead [address] [place] [address] Exam: MR Knee (C-) CPT 69135 - Right Room Description: [facility] 3T History: Persistent pain and swelling for the past 2 weeks.3 No history of a previous injury or surgery to this region is provided. Technique: MRI of the labeled right knee was performed without intravenous contrast. Comparison: None on record at the time of interpretation. Findings: Soft tissues: Small bilobed Gill's cyst cyst measuring 4 to 5 cm in maximal craniocaudal dimension without underlying joint effusion. Menisci: Linear degenerative signal in the menisci, no evidence of underlying meniscal tears. Tendons and ligaments: Intact. Articular cartilage: Severe thinning medial patellar facet extending to the median ridge mostly cephalad without subchondral edema. Otherwise articular cartilage is of normal thickness for age without focal defects. Bone: No acute abnormalities, no focal osseous lesions. Impression: 1. Patellofemoral chondromalacia. 2. Other mild degenerative changes as noted. 3. Small Gill's cyst. Electronically Signed By: Khadar Mead PA-C [address], [place], [address], [facility] 12/27/2023 07:41:30 Problems Name Problem SNOMED Code Status Onset Date Resolution Date Notes Provider Name and Address Organization Details Recorded Time Pain of right knee joint 528293854316175 Active 2023 MOLLY L'HEUREURafaela [facility] 4 08:47:46 Problem Notes None recorded. Medical Equipment None Reported. Allergies Allergen ID Allergen Name Allergen Category Reaction Reaction Severity Criticality Documentation Date Start Date Code Code System Note Provider Name and Address Organization Details Recorded Time 523183 Iodinated contrast media (substanc e) medicatio n Not available Not available Not available 04/18/20232022 93678 2003 SNOMED Aller gyNam e: 'ivp dye'; Not Available [facility] 4 15:13:38 518509 iodine medicatio n Not available Not available Not available 04/18/20232022 5933 RxNorm Not Available [facility] 4 15:13:38 Medications Name Sig Start Date Stop Date Status Note LastModified by Organization Details LastModified Time atorvastatin 40 mg tablet active Not Available Not Available Not Available atorvastatin 80 mg tablet active Not Available Not Available Not Available fluconazole 200 mg tablet TAKE 1 TABLET BY MOUTH DAILY FOR VAGINITIS active Not Available Not Available No t Available metoprolol succinate ER 100 mg tablet,extend [...] Not Available Not Availabl e Not Available cephalexin 500 mg capsule TAKE 1 CAPSULE BY MOUTH 4 TIMES A DAY FOR 7 DAYS active Not Available Not Available No t Available hydrochloroth iazide 12.5 mg capsule active Not Available Not Available N ot Available piroxicam 10 mg capsule active Not Available Not Available N ot Available cefuroxime axetil 500 mg tablet TAKE 1 TABLET BY MOUTH EVERY 12 HOURS active Not Available Not Available No t Available albuterol sulfate HFA 90 mcg/actuation aerosol inhaler active Not Available Not Available Not Available amoxicillin 875 mg-potassium clavulanate 125 mg tablet TAKE 1 TABLET BY MOUTH EVERY 12 HOURS FOR 10 DAYS active Not Available Not Available No t Available magnesium 250 mg (as magnesium oxide) [...] Updated DateTime 02/29/2024 154.94 cm 34 kg/m2 19014.63 g KAYLIA L'HEUREUX [facility] 02/29/2024 09:41:42 Date Recorded Body height Body mass index (BMI) Body weight Provider Name and Address Organization Details Last Updated DateTime 12/15/2023 154.94 cm 34 kg/m2 74453.63 g KAYLIA L'HEUREUX [facility] 12/15/2023 08:45:52 Social History Question Answer Notes LastModified by Calvin Details LastModified Time Tobacco Smoking Status Never Smoker UXFLIPARLETHIA L'HEUREUX [facility] 12/15/2023 08:47:09 Have You Ever Been Counseled For Unhealthy Alcohol Use? No Information not available 12/15/2023 What Is Your Relationship Status? Single Information not available 12/15/2023 Sex: Unknown Functional Status Question Answer Note LastModified by Calvin Details LastModified Time How many times per week do you consume alcohol? Less than 1 time per week Information not available 12/15/2023 Do you use any illicit or recreational drugs? No Information not available 12/15/2023 Do you or have you ever used any other forms of tobacco or nicotine? No Information not available 12/15/2023 What is your level of alcohol consumption? Occasional Information not available 12/15/2023 Mental Status None recorded. Family History Nothing Reported. Medical History Condition Response Allergies/Hayfever N Coronary Artery Disease N Anxiety/Depression N Breathing or lung disorders N Emphysema N Nerve Disorders N Thyroid Problems Y COPD N Pacemaker N Anemia N Kidney/Bladder Problems N Vascular Disease N Heart Trouble N Heart Attack (NM) N Gastrointestinal Disease N Cholesterol Y Diabetes N Autoimmune disease N Bleeding Disorder N Inflammatory Joint disease Y Orthotics N Arthritis Y Seizures/Epilepsy N Blood [...] SNOMED-CT Code Diagnosis ICD10 Code Diagnosis Note [id number] BRAD Lopez [address] [place] [address] 12/15/2023 08:30:58 01/09/2024 08:46:17 Pain of right knee joint 9870150249 65164 M25.561 Osteoarthr itis of right knee joint 1473632315 74290 M17.11 Derangemen t of right knee 2639035389 5871778 M23.91 [id number] BRAD Lopez [address] [place] [address] 02/29/2024 09:29:56 03/12/2024 13:03:36 Osteoarthritis of right knee joint 2679239887 67267 M17.11 Health Concerns Section Related Observation LastModified by Organization Detai ls LastModified Time None Recorded Concern Status LastModified by Organization Details LastModified Time None Recorded Advance Directives Directive None Recorded Payers Insurance Date Sequence Insurance Name Policy Number Policy Whitt Covered Member ID Whitt Member ID Guarantor Name 05/05/2024 2 FOR LIFE ( - MEDICARE SUPPLEMENT) Melba Kline [id number] Melba Kline 05/06/2024 1 [place]IC[place]: [email or web address] Melba Kline [id number] Melba Kline OBGyn Episode No OBEpisode recorded.
== END 2024-08-14 14:36 | disposition home or self-care (01) ==
LOC: HO.MAMMO 14:35
PROVIDERS: PCP Internal Medicine; Visit Provider Internal Medicine
DX: Z12.31 Encounter for screening mammogram for malignant neoplasm of breast (principal)
CPT/HCPCS: 77063; 77067

== ENCOUNTER → 2024-08-14 14:45 | Outpatient (BNV) | payer MEDICARE, OTHER, SELFPAY | PROVIDERS: PCP Internal Medicine; Visit Provider Internal Medicine | DX: Z12.31 Encounter for screening mammogram for malignant neoplasm of breast (principal) | CPT/HCPCS: 77063; 77067 ==

== ENCOUNTER 2024-08-15 10:23 | Outpatient (AMB) | payer MEDICARE, OTHER, SELFPAY ==
--- OUTSIDE RECORDS SUMMARY | 2024-08-15 10:59 | XMS_ITS | Clinical Summary ---
Author Organization [facility] [address] Address [address] [place] [address] Care Team Providers Care Handle Sander Operator Name Role Phone Francesca Bass MD Primary Care Provider [phone] Allergies Active Allergy Reactions Criticality Noted Date [...] FOR LIFE MEDICARE FOR LIFE Care Teams Handle Sander Operator Relationship Specialty Start Date End Date Francesca Bass MD [facility] [place] [address] PCP - General Internal Medicine 11/29/21
[2024-08-15 11:00] VITALS: BP 124/82; PULSE 70; RESP 16; O2SAT 97; BMI 36.5
--- NOTE | 2024-08-15 11:00 | MHC.PC.OV ---
Vital Signs 08/15/24 11:00 Height 5 ft Weight 187 lb BMI 36.5 BP 124/82 Blood Pressure Location Rt brachial Position Sitting Respiration 16 Pulse 70 Pulse Source Pulse Oximeter Pulse Oximetry (%) 97 Oxygen Delivery Method Room Air Intake Visit Reasons: discuss recent lab results Intake Note: Pt is here today to discuss recent lab results Allergies amlodipine (From Lotrel) Allergy (Unknown, Verified 03/25/24 18:59) Rash benazepril (From Lotrel) Allergy (Unknown, Verified 03/25/24 18:59) Rash IVP dye Allergy (Unknown, Uncoded 03/25/24 18:59) rash Medication List - Last Reconciled 08/20/24 by Francesca Bass MD albuterol sulfate 90 mcg/actuation (ProAir HFA) 2 puffs inhalation Q6H PRN aspirin (Adult Low Dose Aspirin) 81 mg PO DAILY cholecalciferol (vitamin D3) 25 mcg PO DAILY hydrochlorothiazide 12.5 mg PO QAM levothyroxine 50 mcg PO DAILY magnesium oxide 250 mg PO DAILY metformin ER (Glucophage XR) 500 mg PO QPM metoprolol succinate ER 100 mg PO DAILY omeprazole 40 mg PO DAILY piroxicam 10 mg PO DAILY rosuvastatin 20 mg PO DAILY triamcinolone acetonide 0.1% 1 appl topical BID 10 days Tobacco use date assessed: 08/15/24 Fall risk assessment: 1 Fall in past year Last assessed Fall Risk: 08/15/24 Dental Screening Dental Screen Date: 08/15/24 Did you have a dental visit in the last 12 months?: Yes Did you have a dental problem in the last 6 months where you did not have access to dental care?: Yes Was dental information given to patient?: Patient has dentist HPI discuss recent lab results HPI Details 69-year-old lady here today for follow-up on recent lipid levels. She was on atorvastatin 80 mg before but stopped taking it as she has been having episodes of urinary frequency, urgency and occasional stress incontinence. Ever since she stopped taking the medication her symptoms have been slowly improving. [facility] Medical History (Updated 08/15/24 @ 11:29 by Francesca Bass MD) Type 2 diabetes mellitus without complication, without long-term current use of insulin Nocturnal leg cramps Lymphocytosis Family history of peripheral vascular disease Hearing impairment Tinnitus of both ears Intermittent lightheadedness Exercise induced bronchospasm Tick bite of right upper arm History of gallstones Impaired fasting glucose Acquired hypothyroidism Carpal tunnel syndrome Mild acquired hearing loss GERD (gastroesophageal reflux disease) Keratitis, herpetic Dyslipidemia Osteoarthritis of spine Essential hypertension Surgical History History of myomectomy History of carpal tunnel surgery Hx of cholecystectomy Family History Father Arthritis CVD (cardiovascular disease) Mother Arthritis HTN (hypertension) Non-insulin dependent diabetes mellitus History of CVA (cerebrovascular accident) Brother No problems noted. Sister No problems noted. Sister Mental health disorder Sister Ovarian cancer Tubular adenoma Anemia Sister Factor V Leiden Anemia Social History Household Members: Family Housing: House Alcohol intake: current Alcohol intake frequency: holidays/special occasions only Patient Tobacco Use Status: Never used Tobacco e-Cigarette/Vaping Use: Never Used service: Yes Current occupational status: retired Gender identity: Female Cognitive needs: No Hearing needs: No Vision needs: Yes Questionnaire PHQ-9 Over the last 2 weeks, how often have you been bothered by any of the following problems? 3. Trouble falling or staying asleep, or sleeping too much: not at all 4. Feeling tired or having little energy: several days 5. Poor appetite or overeating: not at all 6. Feeling bad about yourself - or that you are a failure or have let yourself or your family down: not at all 7. Trouble concentrating on things, such as reading the newspaper or watching television: not at all 8. Moving or speaking so slowly that other people could have noticed. Or the opposite - being so fidgety or restless that you have been moving around a lot more than usual: not at all 9. Thoughts that you would be better off or of hurting yourself in some way: not at all Depression Screening Interpretation: Negative Depression Screening Done: Yes Source: Developed by Drs. Oni Quesada, Patrizia Bianchi, Andrew Head and colleagues, with an educational carter from [employer]. Thrive Questionnaire Date Thrive assessed: 03/13/24 I am a: Patient What is your living situation today?: I have a steady place to live Within the past 12 months, did the food you bought not last and you didn't have the money to get more?: Never true Within the past 12 months, did you worry whether your food would run out before you got money to buy more?: Never true Do you have trouble paying for medicines?: No Do you have trouble getting transportation to medical appointments?: No Do you have trouble paying your heating and electricity bill?: No Do you have trouble taking care of your child, family member or friend?: No Do you have trouble with day-to-day activities such as bathing, preparing meals, shopping, managing finances, etc.?: No Are you currently unemployed and looking for a job?: No Are you interested in more education?: No Please select the resources that you would like help with: None Currently or been in a relationship where the following occur: No concerns reported THRIVE Score: 0 AUDIT C Alcohol Use Questionnaire (AUDIT-C) 1. How often do you have a drink containing alcohol?: Monthly or less 3. How often do you have six or more drinks on one occasion?: Never Total Score: 1 CHARLOTTE-7 AMB Questionnaire CHARLOTTE-7 Date CHARLOTTE - 7 assessed: 03/20/24 Feeling nervous, anxious, or on edge: 0 = Not at all Not being able to stop or control worryin = Not at all Worrying too much about different things: 0 = Not at all Trouble relaxin = Not at all Being so restless that it is hard to sit still: 0 = Not at all Becoming easily annoyed or irritable: 0 = Not at all Feeling afraid as if something awful might happen: 0 = Not at all Total CHARLOTTE-7 score (0-4 normal; 5-9 mild; 10-14 moderate; 15-21 severe): 0 Source: Developed by Drs. Oni Quesada, Patrizia Bianchi, Andrew Head and colleagues, with an educational carter from [employer]. Review of Systems Const All systems reviewed & are unremarkable except as noted in HPI and below Physical exam (Primary Care) Vital Signs: Last Vital Signs Pulse 70 08/15/24 11:00 Resp 16 08/15/24 11:00 BP 124/82 08/15/24 11:00 Pulse Ox 97 08/15/24 11:00 Oxygen Delivery Method Room Air 08/15/24 11:00 BMI result Body Mass Index 36.5 Tobacco/Smoking Status: Tobacco use Status Tobacco use date assessed 08/15/24 08/15/24 11:04 Patient Tobacco Use Status Never used Tobacco 08/15/24 11:04 e-Cigarette/Vaping Use Never Used 08/15/24 11:04 Depression Screening Interpretation: Negative Thrive Assessment: Date of Thrive Assessment Date Thrive assessed 03/13/24 08/15/24 11:04 Currently or been in a relationship where the following occur: No concerns reported Const General: no acute distress and alert Orientation/consciousness: patient oriented x3 HENMT Head: Yes normocephalic Ears: external ears normal General nose exam: Normal external nose present Face and sinus: Yes face symmetric and Yes sinus tenderness (maxillary area) Mouth: Normal oral and palatal mucosa present and moist mucous membranes Eyes General: appearance normal, both eyes and all related structures Neck Other: Nonpalpable thyroid gland Neck: Yes full ROM, Yes no lymphadenopathy and Yes supple Resp Auscultation: clear to auscultation bilaterally Cardio Other: S1-S2 present regular rate and rhythm GI Other: Her bowel sounds, soft, nontender, with no mass palpated Skin General skin exam: no rashes or lesions noted Neuro General: patient oriented x3, gait normal, tone normal, moves all extremities, Normal light touch and pain sensation and no focal motor deficits Extrem General: Yes full ROM, Yes no joint enlargement, Yes no calf tenderness and Yes normal gait Results Reviewed [id number] Unit#: [id number] Attend Dr: Francesca Bass MD Re08/10/24 Status: DEP REF Location: .LAB Disch: SPEC : [id number] ANIA: 08/10/24 STATUS: COMP REQ : [id number] RECD: 08/10/[address]: Francesca Bass MD COMP: 08/10/24 ENTERED: 08/10/[address]: ORDERED: Met Prof Fast, AST, ALT, CK Total, Lipid Panel, Vitamin D 25-OH, Free T4 Test Result Flag Reference Sodium 140 135-145 mmol/L Potassium 3.8 3.3-5.1 mmol/L CL 103 96-108 mmol/L CO2 27 22-29 mmol/L Gap 14 12-20 BUN 20 H 9-16 mg/dL Creat 0.63 0.5-1.4 mg/dL eGFR > 60 Chronic Kidney Disease: Estimated GFR < 60 mL/min/1.73m2 Severe Kidney Disease: Estimated GFR < 15 mL/min/1.73m2 FBS 130 H 60-99 mg/dL A fasting glucose of 126 mg/dl or greater on more than one occasion is considered diagnostic of diabetes. CA 9.6 8.4-10.2 mg/dL AST (GOT) 30 5-31 U/L ALT (GPT) 57 H 0-31 U/L CK Total 62 26-140 U/L Triglyceride 368 H <150 mg/dL Desirable Triglyceride: less than 150 mg/dL Borderline High Triglyceride 150-199 mg/dL High Triglyceride: 200-499 mg/dL Very High Triglyceride: greater than or equal to 5OO mg/dL Cholesterol 393 H <200 mg/dL Desirable Cholesterol: less than 200 mg/dL Borderline High Cholesterol: 200-239 mg/dL High Cholesterol: greater than 239 mg/dL LDL Calculated 280 H <100 mg/dL Desirable LDL: less than 100 mg/dL Near Optimal/Above Optimal LDL: 110-129 mg/dL Borderline High LDL: 130-159 mg/dL High LDL: 160-189 mg/dL Very High LDL: greater than or equal to 190 mg/dL HDL 40 L >40 mg/dL Desirable HDL: greater than 40 mg/dL Note: This HDL assay may give artificially low results in patients with liver disease. Vitamin D 25-OH 38.2 >30 ng/mL Health Based Reference Values* < 20 ng/mL Deficient 20-30 ng/mL Insufficient > 30 ng/mL Sufficient *Simba HENLEY. N Engl J Med. 2007;357:266-280 There is no well-established upper level of normal vitamin D levels. Some laboratories use 50 ng/mL as an upper limit of normal. However, toxicity is patient-dependent and may occur at any level. Careful correlation with the patient's presentation is necessary and, if there is concern for vitamin D toxicity, treatment should be considered irrespective of the serum level. Care must be taken in interpreting Vitamin D results from different laboratories and methodologies. Published data demonstrated that results from patients undergoing hemodialysis may show a negative bias when tested with various automated 25-OH vitamin D assays when compared to LC-MS/MS. When testing samples from patients whose predominant form of Vitamin D is Vitamin D2, such as patients receiving Vitamin D2 supplementation, results that are subtherapeutic should be confirmed with another method such as LC-MS/MS. Free T4 0.95 0.71-1.85 ng/dL TSH 3rd Gen. 2.76 0.32-4.0 uIU/mL Note: A sustained TSH level above 2.5 uIU/mL may warrant further investigation. Coding Level of Care Code Est Pt Level 4 (01154) Diagnoses Essential hypertension I10 Dyslipidemia E78.5 Type 2 diabetes mellitus without complication, without long-term current use of insulin E11.9 Acquired hypothyroidism E03.9 Assessment & Plan Assessment & Plan (1) Essential hypertension: Code(s): I10 - Essential (primary) hypertension Category: Medical Plan: Blood pressure at goal of less than 130/80. Continue with current medication. Reinforced importance of following a low sodium diet, getting regular exercise, and lowering stress levels. (2) Dyslipidemia: Code(s): E78.5 - Hyperlipidemia, unspecified Category: Medical Plan: Reviewed recent fasting lab lipid levels with patient which showed not elevation in all his cholesterol levels. Will restart back on stat, started on rosuvastatin 20 mg per tablet to take once a day with reinforced importance a low-cholesterol diet and getting regular exercise. (3) Type 2 diabetes mellitus without complication, without long-term current use of insulin: Code(s): E11.9 - Type 2 diabetes mellitus without complications Category: Medical Plan: Latest hemoglobin A1c is at 6.5%. Will start on metformin ER 500 mg per tablet take 1 tablet at night with supper. Reinforced importance of following diabetic diet and getting regular exercise. Get yearly eye exams to check for any eye involvement from diabetes. (4) Acquired hypothyroidism: Code(s): E03.9 - Hypothyroidism, unspecified Category: Medical Plan: Thyroid levels are within normal limits, continued on levothyroxine 50 mcg daily Orders: Orders Lipid Panel 11/14/24 E03.9 - Hypothyroidism, unspecified, E11.9 - Type 2 diabetes mellitus without complications, E78.5 - Hyperlipidemia, unspecified, I10 - Essential (primary) hypertension Alanine Aminotransferase 10/01/25 E03.9 - Hypothyroidism, unspecified, E11.9 - Type 2 diabetes mellitus without complications, E78.5 - Hyperlipidemia, unspecified, I10 - Essential (primary) hypertension Hemoglobin A1c 11/14/24 E03.9 - Hypothyroidism, unspecified, E11.9 - Type 2 diabetes mellitus without complications, E78.5 - Hyperlipidemia, unspecified, I10 - Essential (primary) hypertension Aspartate Amino Transferase 11/14/24 E03.9 - Hypothyroidism, unspecified, E11.9 - Type 2 diabetes mellitus without complications, E78.5 - Hyperlipidemia, unspecified, I10 - Essential (primary) hypertension Basic Metabolic Panel Fasting 11/14/24 E03.9 - Hypothyroidism, unspecified, E11.9 - Type 2 diabetes mellitus without complications, E78.5 - Hyperlipidemia, unspecified, I10 - Essential (primary) hypertension Microalbumin, Random (w Creat) 11/14/24 E03.9 - Hypothyroidism, unspecified, E11.9 - Type 2 diabetes mellitus without complications, E78.5 - Hyperlipidemia, unspecified, I10 - Essential (primary) hypertension Thyroid Stimulating Hormone 11/14/24 E03.9 - Hypothyroidism, unspecified, E11.9 - Type 2 diabetes mellitus without complications, E78.5 - Hyperlipidemia, unspecified, I10 - Essential (primary) hypertension Free T4 (Free Thyroxine) 11/14/24 E03.9 - Hypothyroidism, unspecified, E11.9 - Type 2 diabetes mellitus without complications, E78.5 - Hyperlipidemia, unspecified, I10 - Essential (primary) hypertension Medications: New metformin ER (Glucophage XR) 500 mg PO QPM 30 tabs 5RF E11.9 - Type 2 diabetes mellitus without complications rosuvastatin 20 mg PO DAILY 30 tabs 5RF Refilled levothyroxine 50 mcg PO DAILY 90 tabs 4RF
== END 2024-08-15 11:38 | disposition home or self-care (01) ==
LOC: HO.HMCC 10:24
PROVIDERS: PCP Internal Medicine; Visit Provider Internal Medicine
DX: I10 Essential (primary) hypertension (principal); E78.5 Hyperlipidemia, unspecified; E11.9 Type 2 diabetes mellitus without complications; E03.9 Hypothyroidism, unspecified

== ENCOUNTER → 2024-08-15 10:23 | Outpatient (BNVA) | payer MEDICARE, OTHER, SELFPAY | PROVIDERS: PCP Internal Medicine; Visit Provider Internal Medicine | DX: I10 Essential (primary) hypertension (principal); E78.5 Hyperlipidemia, unspecified; E11.9 Type 2 diabetes mellitus without complications; E03.9 Hypothyroidism, unspecified | CPT/HCPCS: 99212 ==

== ENCOUNTER 2024-11-09 10:54 | Outpatient (AMB) | payer MEDICARE, OTHER, SELFPAY ==
[2024-11-09 11:09] VITALS: BP 142/84; PULSE 80; TEMP 36.9; O2SAT 95; BMI 35.7
--- NOTE | 2024-11-09 11:09 | AM.OFFWIN_ITS ---
Intake Vital Signs 11/09/24 11:09 11/09/24 11:17 Height 5 ft Weight 183 lb BMI 35.7 BP 142/84 H 150/80 H Blood Pressure Location Rt brachial Lt brachial Position Sitting Sitting Pulse 80 Pulse Source Pulse Oximeter Temp 98.5 F Temp Source Oral Pulse Oximetry (%) 95 Oxygen Delivery Method Room Air Intake Visit Reasons: ep upper respiratory infection for a week Intake Note: pt presents with chest congestion, productive cough, sinus congestion, fatigued, lack of sleep for a week Patient Tobacco Use Status: Never used Tobacco Allergies amlodipine (From Lotrel) Allergy (Unknown, Verified 03/25/24 18:59) Rash benazepril (From Lotrel) Allergy (Unknown, Verified 03/25/24 18:59) Rash IVP dye Allergy (Unknown, Uncoded 03/25/24 18:59) rash Do you need a note to return to daycare/school/sports/work: No HPI HPI Comments History of Present Illness Details History - The patient is a 69-year-old female pr esenting with a persistent cough. - The cough has been present for over a week, becoming more productive in the last three days. - The patient reports the cough is dry a nd non-productive of colored sputum. - The cough has been severe enough to di srupt sleep, causing fits of coughing and difficulty breathing. - The patient has a history of exercise- induced asthma and uses an inhaler, which provides minimal relief. - The patient has been using a decongest ant and allergy medication daily, helps temporarily. - The patient experienced chills and a p ossible low-grade fever, but no ear or sinus pain. Physical Exam General: Cooperative, healthy appearing, comfortable and no acute distress Orientation/consciousness: Patient oriented x3 Limitations: No limitations Head: Normal to inspection Ears: Hearing grossly normal bilaterally, external ears normal and TM's normal bilaterally Nose: Normal external nose present, Normal nares present and No nasal discharge present Face and sinus: Normal facial exam and Yes sinuses nontender Mouth: Normal oral and palatal mucosa present and moist mucous membranes Throat: Yes tonsils normal, Yes uvula midline. Posterior oropharynx erythema, no exudates Eyes: Appearance normal, both eyes and all related structures Neck: Normal visual inspection, full ROM Respiratory: Clear to auscultation bilaterally. Normal respiratory effort, able to speak in complete sentences, Actively coughing, no respiratory distress, not tachypneic, no tripod positioning and no use of accessory muscles Cardiovascular: Regular rate and rhythm. Normal S1 and S2 Skin: No rashes or lesions noted Neuro: Patient oriented x3 Extremities: Normal to inspection and Yes no clubbing, cyanosis or edema Review of Systems - Respiratory: Reports persistent cough, denies hemoptysis - General: Reports chills, denies fever - ENT: Denies ear pain or sinus pain All systems reviewed and are unremarkable except as noted in HPI [facility] Medical History (Updated 11/09/24 @ 11:31 by Dayna Zavala PA-C) Type 2 diabetes mellitus without complication, without long-term current use of insulin Nocturnal leg cramps Lymphocytosis Family history of peripheral vascular disease Hearing impairment Tinnitus of both ears Intermittent lightheadedness Exercise induced bronchospasm Tick bite of right upper arm History of gallstones Impaired fasting glucose Acquired hypothyroidism Carpal tunnel syndrome Mild acquired hearing loss GERD (gastroesophageal reflux disease) Keratitis, herpetic Dyslipidemia Osteoarthritis of spine Essential hypertension Surgical History History of myomectomy History of carpal tunnel surgery Hx of cholecystectomy Family History Father Arthritis CVD (cardiovascular disease) Mother Arthritis HTN (hypertension) Non-insulin dependent diabetes mellitus History of CVA (cerebrovascular accident) Brother No problems noted. Sister No problems noted. Sister Mental health disorder Sister Ovarian cancer Tubular adenoma Anemia Sister Factor V Leiden Anemia Social History Household Members: Family Housing: House Alcohol intake: current Alcohol intake frequency: holidays/special occasions only Patient Tobacco Use Status: Never used Tobacco e-Cigarette/Vaping Use: Never Used service: Yes Current occupational status: retired Gender identity: Female Cognitive needs: No Hearing needs: No Vision needs: Yes Physical Exam Vital Signs: Last Vital Signs Temp 98.5 F 11/09/24 11:09 Pulse 80 11/09/24 11:09 BP 150/80 H 11/09/24 11:17 Pulse Ox 95 11/09/24 11:09 Oxygen Delivery Method Room Air 11/09/24 11:09 BMI result Body Mass Index 35.7 Assessment & Plan Assessment & Plan (1) URI, acute: Code(s): J06.9 - Acute upper respiratory infection, unspecified Plan: Plan Patient was informed and verbally consented to the use of an ambient scribe for clinic note documentation during this visit. - VSS, pt well appearing and PE unremarkable. Slightly elevated BP, likely 2/2 cough medicine, reminded pt when she is feeling better to monitor her BP to ensure they are WNL. If they are not, she should follow up with PCP. - Suspected viral etiology; viral testing has been sent. - Benzonatate prescribed for symptomatic relief, particularly at night. - Advised to maintain hydration and rest. - Z-Connor prescribed as a backup if viral tests return negative and symptoms persist beyond 10 days. - Advised to use inhaler prophylactically every six hours to manage bronchospasm. Orders: Orders Resp Pathogen Panel - [facility] Today J06.9 - Acute upper respiratory infection, unspecified Medications: New benzonatate 200 mg PO BEDTIME PRN 10 caps 0RF cough azithromycin For 250 mg dose pack: take 500 mg today (day 1), then 250 mg for 4 days (days 2-5) PO 6 tabs 0RF Coding Level of Care Code Est Pt Level 3 (00056) Diagnoses URI, acute J06.9
[2024-11-09 11:17] VITALS: BP 150/80
--- OUTSIDE RECORDS SUMMARY | 2024-11-09 12:38 | XMS_ITS | Clinical Summary ---
Author Organization [facility] [address] [facility] Address [address] [place] [address] Care Team Providers Care Acute Specialist Name Role Phone Francesca Bass MD Primary Care Provider [phone] Allergies Active Allergy Reactions Criticality Noted Date [...] 02/28/2016 02/27/2006 Osteoporosis screening (bone density) 2019 Influenza vaccine 09/14/2024 Covid-19 vaccine series ( season) 2024 05/05/2020, 04/07/2020 RSV Immunization (1 - 1-dose 75+ series) 2029 Cervical cancer screening Discontinued Meningococcal B Vaccine Aged Out No l onger eligible based on patient's age to complete this topic Meningococcal Vaccine Aged Out No ignacio itz eligible based on patient's age to complete this topic Insurance MEDICARE FOR LIFE MEDICARE FOR LIFE MEDICARE FOR LIFE Care Teams Acute Specialist Relationship Specialty Start Date End Date Francesca Bass MD [facility] [place] [id number] PCP - General Internal Medicine 11/29/21
== END 2024-11-09 11:28 | disposition home or self-care (01) ==
PROVIDERS: PCP Internal Medicine; Visit Provider Physician Assistant
DX: J06.9 Acute upper respiratory infection, unspecified (principal)

== ENCOUNTER 2024-11-09 10:54 | Outpatient (REF) | payer MEDICARE, OTHER, SELFPAY ==
[2024-11-10 07:14] LABS: Chlamydia pneumoniae PCR Not Detected (Not Detect.); Coronavirus 229E PCR Not Detected (Not Detect.); Coronavirus HKU1 PCR Not Detected (Not Detect.); Coronavirus NL63 PCR Not Detected (Not Detect.); Coronavirus OC43 PCR Not Detected (Not Detect.); Influenza A H1 PCR Not Detected (Not Detect.); Influenza A H1-2009 PCR Not Detected (Not Detect.); Influenza A H3 PCR Not Detected (Not Detect.); RSV PCR Not Detected (Not Detect.); Rhino/Enterovirus PCR Not Detected (Not Detect.); SARS-CoV-2 PCR Not Detected (Not Detect.)
== END 2024-11-09 10:55 | disposition home or self-care (01) ==
LOC: HO.LAB 10:54
PROVIDERS: Physician Assistant; PCP Internal Medicine
DX: J06.9 Acute upper respiratory infection, unspecified (principal)
CPT/HCPCS: 87633; 99212

== ENCOUNTER 2024-11-19 12:06 | Outpatient (AMB) | payer MEDICARE, OTHER, SELFPAY ==
[2024-11-19 13:07] VITALS: BP 162/80; PULSE 76; TEMP 36.8; O2SAT 96; BMI 36.1
--- NOTE | 2024-11-19 13:07 | AM.OFFWIN_ITS ---
Intake Vital Signs 11/19/24 13:07 Height 5 ft Weight 185 lb BMI 36.1 BP 162/80 H Blood Pressure Location Lt brachial Position Sitting Pulse 76 Pulse Source Pulse Oximeter Temp 98.3 F Temp Source Oral Pulse Oximetry (%) 96 Oxygen Delivery Method Room Air Intake Visit Reasons: ep sore throat cough Intake Note: pt presents worsening chest congestion/cough/wheezing, slight headaches,SOB after walking Patient Tobacco Use Status: Never used Tobacco Allergies amlodipine (From Lotrel) Allergy (Unknown, Verified 11/19/24 13:09) Rash benazepril (From Lotrel) Allergy (Unknown, Verified 11/19/24 13:09) Rash IVP dye Allergy (Unknown, Uncoded 03/25/24 18:59) rash Do you need a note to return to daycare/school/sports/work: No HPI HPI Comments 2 History of Present Illness Details 69 y/o Female patient who presents to [facility] walk [facility] clinic with c/o Cough, Chest tightness, SOB and Wheezing for 2-3 weeks now. She was seen here last week and evaluated for similar problem. She was prescribed Z-pack for 5 days. She had Negative Respiratory Panel. Today Pt reports symptoms getting worse - she unable to walk without having SOB. She does have Mild Asthma and currently only prescribed Albuterol rescue inhaler. PENDING SALE TO [facility] Medical History (Updated 11/19/24 @ 14:28 by Elsy Salguero NP) Wheezing on auscultation Type 2 diabetes mellitus without complication, without long-term current use of insulin Nocturnal leg cramps Lymphocytosis Family history of peripheral vascular disease Hearing impairment Tinnitus of both ears Intermittent lightheadedness Exercise induced bronchospasm Tick bite of right upper arm History of gallstones Impaired fasting glucose Acquired hypothyroidism Carpal tunnel syndrome Mild acquired hearing loss GERD (gastroesophageal reflux disease) Keratitis, herpetic Dyslipidemia Osteoarthritis of spine Essential hypertension Surgical History History of myomectomy History of carpal tunnel surgery Hx of cholecystectomy Family History Father Arthritis CVD (cardiovascular disease) Mother Arthritis HTN (hypertension) Non-insulin dependent diabetes mellitus History of CVA (cerebrovascular accident) Brother No problems noted. Sister No problems noted. Sister Mental health disorder Sister Ovarian cancer Tubular adenoma Anemia Sister Factor V Leiden Anemia Social History Household Members: Family Housing: House Alcohol intake: current Alcohol intake frequency: holidays/special occasions only Patient Tobacco Use Status: Never used Tobacco e-Cigarette/Vaping Use: Never Used service: Yes Current occupational status: retired Gender identity: Female Cognitive needs: No Hearing needs: No Vision needs: Yes Review of Systems Const All systems reviewed & are unremarkable except as noted in HPI and below Physical Exam Vital Signs: Last Vital Signs Temp 98.3 F 11/19/24 13:07 Pulse 76 11/19/24 13:07 BP 162/80 H 11/19/24 13:07 Pulse Ox 96 11/19/24 13:07 Oxygen Delivery Method Room Air 11/19/24 13:07 BMI result Body Mass Index 36.1 Const General: no acute distress; No comfortable Nutritional Appearance: obese Orientation/consciousness: patient oriented x3 HEENT Head: Yes normocephalic Ears: external ears normal and TM's normal bilaterally General nose exam: Normal external nose present Face and sinus: Yes sinuses nontender Mouth: moist mucous membranes Throat: Yes uvula midline Resp Effort & Inspection: normal respiratory effort, able to speak in complete sentences, audible wheezes and Actively coughing Auscultation: no crackles, no rales, rhonchi and wheezes scattered wheezes Cardio Heart sounds: S1 normal heart sound present and S2 normal heart sound present Neuro General: patient oriented x3, gait normal and moves all extremities Psych Speech and movement: Normal speech and movement present Office Procedures Nebulizer Treatment Nebulizer Treatment 63289-Vmkjrmnyw/MDI RX initial, or Nebulizer Subsequent Treatment Office Meds ipratropium 0.5 mg-albuterol 3 mg (2.5 mg base)/3 mL nebulization soln Performing Provider: Elsy Salguero NP Performing Location: [facility] Administered by: Esly Salguero NP on 11/19/24 14:28 Dose Route Admin Location Dispensed Lot Number Expiration Date [facility] Signal Helper 3 mL inhalation 3 mL Assessment & Plan Assessment & Plan (1) Cough: Code(s): R05.9 - Cough, unspecified Plan: Ordered Chest Xray today. Ordered Neb Tx in Office Ordered Amoxicillin and Prednisone Ordered Symbicort BID Pt does have an appointment with PCP Tuesday. Orders: Orders XR chest 2V Today R05.9 - Cough, unspecified AMB Nebulizer Treatment Today R06.2 - Wheezing Medications: New amoxicillin-pot clavulanate 875-125 mg 1 tab PO BID 14 tabs 0RF 7 days R05.9 - Cough, unspecified prednisone 20 mg PO DAILY 10 tabs 0RF R05.9 - Cough, unspecified budesonide-formoterol 80-4.5 mcg/actuation (Symbicort) 2 puffs inhalation BID 10.2 grams 0RF wheezing and SOB R05.9 - Cough, unspecified Coding Level of Care Code Est Pt Level 4 (54625) Diagnoses Cough R05.9 CPT Codes Nebulizer Treatment - Nebulizer Treatment, initial or subsequent: 25743- Nebulizer/MDI RX initial, or Nebulizer Subsequent Treatment ([id number]) Time Spent (min) 20
--- OUTSIDE RECORDS SUMMARY | 2024-11-19 14:34 | XMS_ITS | Clinical Summary ---
Author Organization [facility] [address] [facility] Address [address] [place] [address] Care Team Providers Care Sewer Separation Designer Name Role Phone Francesca Bass MD Primary Care Provider [phone] Allergies Active Allergy Reactions Criticality Noted Date [...] FOR LIFE MEDICARE FOR LIFE Care Teams Sewer Separation Designer Relationship Specialty Start Date End Date Francesca Bass MD [facility] [place] [id number] PCP - General Internal Medicine 11/29/21
== END 2024-11-19 14:15 | disposition home or self-care (01) ==
PROVIDERS: PCP Internal Medicine; Visit Provider Nurse Practitioner Family
DX: R06.2 Wheezing (principal); R05.9 Cough, unspecified

== ENCOUNTER 2024-11-19 12:06 | Outpatient (REF) | payer MEDICARE, OTHER, SELFPAY ==
--- NOTE | ~2024-11-19 | XR_ITS ---
EXAMINATION: XR CHEST CLINICAL INFORMATION: R05.9 - Cough, unspecified COMPARISON: Previous chest x-ray September 2014 TECHNIQUE: 2 views of the chest were obtained. FINDINGS: Cardiac and mediastinal contours are stable. The lungs are clear. No pleural effusion or pneumothorax. Degenerative changes of the spine. XR/XR chest 2V IMPRESSION: Unremarkable examination. Electronically signed by: Alley Ellsworth MD 11/19/2024 01:32 PM EDT
== END 2024-11-19 12:07 | disposition home or self-care (01) ==
LOC: HO.HMGCX 12:06
PROVIDERS: PCP Internal Medicine; Visit Provider Nurse Practitioner Family
DX: R06.2 Wheezing (principal); R05.9 Cough, unspecified
CPT/HCPCS: 71046; 94640; 99212

== ENCOUNTER → 2024-11-19 13:21 | Outpatient (BNV) | payer MEDICARE, OTHER, SELFPAY | PROVIDERS: PCP Internal Medicine; Visit Provider Radiology Diagnostic Radiology | DX: R05.9 Cough, unspecified (principal) | CPT/HCPCS: 71046 ==

== ENCOUNTER 2024-11-22 07:46 | Outpatient (REF) | payer MEDICARE, OTHER, SELFPAY ==
[2024-11-22 09:06] LABS: Alanine Aminotransferase 60 U/L (0-31); Anion Gap 11 (12-20); Aspartate Amino Transferase 33 U/L (5-31); Blood Urea Nitrogen 19 mg/dL (9-16); Calcium 9.6 mg/dL (8.4-10.2); Carbon Dioxide 30 mmol/L (22-29); Chloride 106 mmol/L (96-108); Cholesterol 174 mg/dL (<200); Estimated Glomerular Filt Rate > 60; HDL Cholesterol 42 mg/dL (>40); Potassium 4.1 mmol/L (3.3-5.1); Sodium 143 mmol/L (135-145); Triglycerides 135 mg/dL (<150)
[2024-11-22 09:20] LABS: Free T4 (Free Thyroxine) 1.00 ng/dL (0.71-1.85); Thyroid Stimulating Hormone 2.50 uIU/mL (0.32-4.0)
[2024-11-22 09:37] LABS: Microalbum/Creatinine Ratio Ur 54.7 ug/mg cr (<30)
== END 2024-11-22 07:47 | disposition home or self-care (01) ==
LOC: HO.LAB 07:46
PROVIDERS: PCP Internal Medicine; Visit Provider Internal Medicine
DX: I10 Essential (primary) hypertension (principal); E78.5 Hyperlipidemia, unspecified; E11.9 Type 2 diabetes mellitus without complications; E03.9 Hypothyroidism, unspecified
CPT/HCPCS: 36415; 80048; 80061; 82043; 82570; 83036; 84439; 84443; 84450; 84460

== ENCOUNTER 2024-11-27 10:43 | Outpatient (AMB) | payer MEDICARE, OTHER, SELFPAY ==
--- NOTE | 2024-11-27 11:04 | MHC.PC.OV ---
Vital Signs 11/27/24 11:11 Height 5 ft Weight 184 lb BMI 35.9 BP 132/88 Blood Pressure Location Rt brachial Position Sitting Pulse 74 Pulse Source Pulse Oximeter Temp 97.8 F Temp Source Oral Pulse Oximetry (%) 97 Oxygen Delivery Method Room Air Intake Visit Reasons: 3 months ffup dm Intake Note: Pt is here today 3 month DM/ f/u walkin still coughing Allergies amlodipine (From Lotrel) Allergy (Unknown, Verified 11/27/24 11:45) Rash benazepril (From Lotrel) Allergy (Unknown, Verified 11/27/24 11:45) Rash IVP dye Allergy (Unknown, Uncoded 11/27/24 11:45) rash Medication List - Last Reconciled 11/27/24 by Francesca Bass MD albuterol sulfate 90 mcg/actuation (ProAir HFA) 2 puffs inhalation Q6H PRN aspirin (Adult Low Dose Aspirin) 81 mg PO DAILY budesonide-formoterol 80-4.5 mcg/actuation (Symbicort) 2 puffs inhalation BID cholecalciferol (vitamin D3) 25 mcg PO DAILY hydrochlorothiazide 12.5 mg PO QAM levothyroxine 50 mcg PO DAILY magnesium oxide 250 mg PO DAILY metformin ER (Glucophage XR) 500 mg PO QPM metoprolol succinate ER 100 mg PO DAILY omeprazole 40 mg PO DAILY piroxicam 10 mg PO DAILY prednisone 20 mg PO DAILY rosuvastatin 20 mg PO DAILY triamcinolone acetonide 0.1% 1 appl topical BID 10 days Tobacco use date assessed: 11/27/24 Fall risk assessment: 1 Fall in past year Last assessed Fall Risk: 11/27/24 Dental Screening Dental Screen Date: 11/27/24 Did you have a dental visit in the last 12 months?: Yes Did you have a dental problem in the last 6 months where you did not have access to dental care?: No Was dental information given to patient?: Patient has dentist HPI 3 months ffup dm HPI Details The patient is a 69-year-old female presenting with chronic cough and wheezing. The cough has been persistent for several weeks, initially thought to be related to a sinus infection, but has since worsened, leading to episodes of wheezing and shortness of breath. The patient reports that the cough is productive, and she has been attempting to expectorate mucus. Initially, she was treated with a Z-Connor, which provided no relief, followed by prednisone, Augmentin, and Symbicort, which offered some improvement. Despite these interventions, the symptoms persisted, and she continues to experience significant respiratory distress. The patient has a history of hypertension, which is currently managed with metoprolol and hydrochlorothiazide. Her blood pressure readings have been stable, although prednisone use has caused some fluctuations. She also has a history of diabetes mellitus, with a recent HbA1c of 6.5%, managed with metformin. The patient reports gastrointestinal side effects from metformin, including diarrhea, and is considering alternative medications. Recent lab work indicates elevated liver enzymes, likely due to rosuvastatin use, although the patient denies any muscle pain. Additionally, microalbuminuria has been noted, suggesting early diabetic nephropathy, and the patient is not currently on lisinopril or losartan for renal protection. [facility] Medical History (Updated 11/27/24 @ 11:50 by Francesca Bass MD) Chronic cough Wheezing on auscultation Type 2 diabetes mellitus without complication, without long-term current use of insulin Nocturnal leg cramps Lymphocytosis Family history of peripheral vascular disease Hearing impairment Tinnitus of both ears Intermittent lightheadedness Exercise induced bronchospasm Tick bite of right upper arm History of gallstones Impaired fasting glucose Acquired hypothyroidism Carpal tunnel syndrome Mild acquired hearing loss GERD (gastroesophageal reflux disease) Keratitis, herpetic Dyslipidemia Osteoarthritis of spine Essential hypertension Surgical History History of myomectomy History of carpal tunnel surgery Hx of cholecystectomy Family History Father Arthritis CVD (cardiovascular disease) Mother Arthritis HTN (hypertension) Non-insulin dependent diabetes mellitus History of CVA (cerebrovascular accident) Brother No problems noted. Sister No problems noted. Sister Mental health disorder Sister Ovarian cancer Tubular adenoma Anemia Sister Factor V Leiden Anemia Social History Household Members: Family Housing: House Alcohol intake: current Alcohol intake frequency: holidays/special occasions only Patient Tobacco Use Status: Never used Tobacco e-Cigarette/Vaping Use: Never Used service: Yes Current occupational status: retired Gender identity: Female Cognitive needs: No Hearing needs: No Vision needs: Yes Questionnaire PHQ-9 Over the last 2 weeks, how often have you been bothered by any of the following problems? 3. Trouble falling or staying asleep, or sleeping too much: not at all 4. Feeling tired or having little energy: several days 5. Poor appetite or overeating: not at all 6. Feeling bad about yourself - or that you are a failure or have let yourself or your family down: not at all 7. Trouble concentrating on things, such as reading the newspaper or watching television: not at all 8. Moving or speaking so slowly that other people could have noticed. Or the opposite - being so fidgety or restless that you have been moving around a lot more than usual: not at all 9. Thoughts that you would be better off or of hurting yourself in some way: not at all Depression Screening Interpretation: Negative Depression Screening Done: Yes Source: Developed by Drs. Oni Quesada, Patrizia Bianchi, Andrew Head and colleagues, with an educational carter from [employer]. Thrive Questionnaire Date Thrive assessed: 03/13/24 I am a: Patient What is your living situation today?: I have a steady place to live Within the past 12 months, did the food you bought not last and you didn't have the money to get more?: Never true Within the past 12 months, did you worry whether your food would run out before you got money to buy more?: Never true Do you have trouble paying for medicines?: No Do you have trouble getting transportation to medical appointments?: No Do you have trouble paying your heating and electricity bill?: No Do you have trouble taking care of your child, family member or friend?: No Do you have trouble with day-to-day activities such as bathing, preparing meals, shopping, managing finances, etc.?: No Are you currently unemployed and looking for a job?: No Are you interested in more education?: No Please select the resources that you would like help with: None Currently or been in a relationship where the following occur: I choose not to answer THRIVE Score: 0 AUDIT C Alcohol Use Questionnaire (AUDIT-C) 2. How many drinks containing alcohol do you have on a typical day when you are drinking?: 1 or 2 Total Score: 0 CHARLOTTE-7 AMB Questionnaire CHARLOTTE-7 Date CHARLOTTE - 7 assessed: 03/20/24 Feeling nervous, anxious, or on edge: 0 = Not at all Not being able to stop or control worryin = Not at all Worrying too much about different things: 0 = Not at all Trouble relaxin = Not at all Being so restless that it is hard to sit still: 0 = Not at all Becoming easily annoyed or irritable: 0 = Not at all Feeling afraid as if something awful might happen: 0 = Not at all Total CHARLOTTE-7 score (0-4 normal; 5-9 mild; 10-14 moderate; 15-21 severe): 0 Source: Developed by Drs. Oni Qeusada, Patrizia Bianchi, Andrew Head and colleagues, with an educational carter from [employer]. Review of Systems Const All systems reviewed & are unremarkable except as noted in HPI and below Physical exam (Primary Care) Vital Signs: Last Vital Signs Temp 97.8 F 11/27/24 11:11 Pulse 74 11/27/24 11:11 BP 132/88 11/27/24 11:11 Pulse Ox 97 11/27/24 11:11 Oxygen Delivery Method Room Air 11/27/24 11:11 BMI result Body Mass Index 35.9 Tobacco/Smoking Status: Tobacco use Status Tobacco use date assessed 11/27/24 11/27/24 11:19 Patient Tobacco Use Status Never used Tobacco 11/27/24 11:05 e-Cigarette/Vaping Use Never Used 11/27/24 11:05 Depression Screening Interpretation: Negative Thrive Assessment: Date of Thrive Assessment Date Thrive assessed 03/13/24 11/27/24 11:05 Currently or been in a relationship where the following occur: I choose not to answer Const General: no acute distress and alert Orientation/consciousness: patient oriented x3 HENMT Head: Yes normocephalic Ears: external ears normal General nose exam: Normal external nose present Face and sinus: Yes face symmetric Mouth: Normal oral and palatal mucosa present and moist mucous membranes Eyes General: appearance normal, both eyes and all related structures Neck Other: Nonpalpable thyroid gland Neck: Yes full ROM, Yes no lymphadenopathy and Yes supple Resp Auscultation: clear to auscultation bilaterally Cardio Other: S1-S2 present regular rate and rhythm GI Other: Her bowel sounds, soft, nontender, with no mass palpated Skin General skin exam: no rashes or lesions noted Neuro General: patient oriented x3, gait normal, tone normal, moves all extremities, Normal light touch and pain sensation and no focal motor deficits Extrem General: Yes full ROM, Yes no joint enlargement, Yes no calf tenderness and Yes normal gait Results Reviewed Results Reviewed: Name: Melba Kline Age/Sex: 69/F : 1955 Unit#: [id number] Attend Dr: Francesca Bass MD Re11/22/24 Status: DEP [facility] Disch: SPEC : [id number] ANIA: 11/22/24 STATUS: COMP REQ : [id number] RECD: 11/22/[address]: Francesca Bass MD COMP: 11/22/24 ENTERED: 11/22/[address]: ORDERED: Met Prof Fast, AST, ALT, Lipid Panel, Free T4, TSH Test Result Flag Reference Sodium 143 135-145 mmol/L Potassium 4.1 3.3-5.1 mmol/L CL 106 96-108 mmol/L CO2 30 H 22-29 mmol/L Gap 11 L 12-20 BUN 19 H 9-16 mg/dL Creat 0.70 0.5-1.4 mg/dL eGFR > 60 Chronic Kidney Disease: Estimated GFR < 60 mL/min/1.73m2 Severe Kidney Disease: Estimated GFR < 15 mL/min/1.73m2 FBS 115 H 60-99 mg/dL A fasting glucose from 100-125 mg/dl is considered impaired (pre-diabetes). CA 9.6 8.4-10.2 mg/dL AST (GOT) 33 H 5-31 U/L ALT (GPT) 60 H 0-31 U/L Triglyceride 135 <150 mg/dL Desirable Triglyceride: less than 150 mg/dL Borderline High Triglyceride 150-199 mg/dL High Triglyceride: 200-499 mg/dL Very High Triglyceride: greater than or equal to 5OO mg/dL Cholesterol 174 <200 mg/dL Desirable Cholesterol: less than 200 mg/dL Borderline High Cholesterol: 200-239 mg/dL High Cholesterol: greater than 239 mg/dL LDL Calculated 105 H <100 mg/dL Desirable LDL: less than 100 mg/dL Near Optimal/Above Optimal LDL: 110-129 mg/dL Borderline High LDL: 130-159 mg/dL High LDL: 160-189 mg/dL Very High LDL: greater than or equal to 190 mg/dL HDL 42 >40 mg/dL Desirable HDL: greater than 40 mg/dL Note: This HDL assay may give artificially low results in patients with liver disease. Free T4 1.00 0.71-1.85 ng/dL TSH 3rd Gen. 2.50 0.32-4.0 uIU/mL TSH 3rd Generation ([facility]) Laboratory Tests 11/22/24 11/22/24 07:54 07:56 Estimat Average Glucose 140 Hemoglobin A1c % 6.5 H Urine Creatinine 193.50 Urine Microalbumin 106.0 Microalb/Creat Ratio 54.7 H Coding Level of Care Code Est Pt Level 4 (41469) Complex EM visit Add On G2211 Diagnoses Chronic cough R05.3 Essential hypertension I10 Dyslipidemia E78.5 Type 2 diabetes mellitus without complication, without long-term current use of insulin E11.9 Acquired hypothyroidism E03.9 Assessment & Plan Assessment & Plan (1) Chronic cough: Code(s): R05.3 - Chronic cough Category: Medical (2) Essential hypertension: Code(s): I10 - Essential (primary) hypertension Category: Medical (3) Dyslipidemia: Code(s): E78.5 - Hyperlipidemia, unspecified Category: Medical (4) Type 2 diabetes mellitus without complication, without long-term current use of insulin: Code(s): E11.9 - Type 2 diabetes mellitus without complications Category: Medical (5) Acquired hypothyroidism: Code(s): E03.9 - Hypothyroidism, unspecified Category: Medical Plan 1. Chronic cough and wheezing The patient has been experiencing persistent cough and wheezing, initially treated with antibiotics and steroids, with partial relief. A pulmonary consultation is recommended to further evaluate the underlying cause and adjust treatment as necessary. 2. Hypertension Blood pressure is currently well-controlled with metoprolol and hydrochlorothiazide. Monitoring will continue, especially considering the potential impact of prednisone on blood pressure levels. 3. Diabetes mellitus The patient's HbA1c is stable at 6.5%, but gastrointestinal side effects from metformin are noted. Consideration of alternative medications such as Jardiance is suggested . Will see how she does in 3 months, repeat labs ordered 4. Elevated liver enzymes Likely secondary to rosuvastatin use. Liver function tests will be monitored, and alternative lipid-lowering therapies may be considered if enzyme levels remain elevated. 5. Microalbuminuria Suggests early diabetic nephropathy. Initiation of lisinopril or losartan is recommended for renal protection, pending patient tolerance and previous adverse reactions. Hydrochlorothiazide was discontinued Patient was informed and verbally consented to the use of an ambient scribe for clinic note documentation during this visit. Orders: Orders Basic Metabolic Panel Fasting 3 Months E03.9 - Hypothyroidism, unspecified, E11.9 - Type 2 diabetes mellitus without complications, E78.5 - Hyperlipidemia, unspecified, I10 - Essential (primary) hypertension Alanine Aminotransferase 3 Months E03.9 - Hypothyroidism, unspecified, E11.9 - Type 2 diabetes mellitus without complications, E78.5 - Hyperlipidemia, unspecified, I10 - Essential (primary) hypertension Aspartate Amino Transferase 3 Months E03.9 - Hypothyroidism, unspecified, E11.9 - Type 2 diabetes mellitus without complications, E78.5 - Hyperlipidemia, unspecified, I10 - Essential (primary) hypertension Microalbumin, Random (w Creat) 3 Months E03.9 - Hypothyroidism, unspecified, E11.9 - Type 2 diabetes mellitus without complications, E78.5 - Hyperlipidemia, unspecified, I10 - Essential (primary) hypertension Lipid Panel 3 Months E03.9 - Hypothyroidism, unspecified, E11.9 - Type 2 diabetes mellitus without complications, E78.5 - Hyperlipidemia, unspecified, I10 - Essential (primary) hypertension Triiodothyronine T3 Free 3 Months E03.9 - Hypothyroidism, unspecified, E11.9 - Type 2 diabetes mellitus without complications, E78.5 - Hyperlipidemia, unspecified, I10 - Essential (primary) hypertension Thyroid Stimulating Hormone 3 Months E03.9 - Hypothyroidism, unspecified, E11.9 - Type 2 diabetes mellitus without complications, E78.5 - Hyperlipidemia, unspecified, I10 - Essential (primary) hypertension Free T4 (Free Thyroxine) 3 Months E03.9 - Hypothyroidism, unspecified, E11.9 - Type 2 diabetes mellitus without complications, E78.5 - Hyperlipidemia, unspecified, I10 - Essential (primary) hypertension Vitamin D 25-OH Total 3 Months E03.9 - Hypothyroidism, unspecified, E11.9 - Type 2 diabetes mellitus without complications, E78.5 - Hyperlipidemia, unspecified, I10 - Essential (primary) hypertension Referrals Pulmonology Referral R05.3 - Chronic cough Medications: New BreatheRite MDI Spacer (inhalational spacing device) As directed 1 ea 0RF NS losartan 25 mg PO DAILY 30 tabs 3RF Discontinued hydrochlorothiazide Discontinued Reason: Doctor's Order 12.5 mg PO QAM 90 caps 1RF
[2024-11-27 11:11] VITALS: BP 132/88; PULSE 74; TEMP 36.6; O2SAT 97; BMI 35.9
--- OUTSIDE RECORDS SUMMARY | 2024-11-27 12:42 | XMS_ITS | Clinical Summary ---
Author Organization [facility] [address] [facility] Address [address] [place] [address] Care Team Providers Care Jigsawyer Name Role Phone Francesca Bass MD Primary Care Provider Allergies Active Allergy Reactions Criticality Noted Date [...] FOR LIFE MEDICARE FOR LIFE Care Teams Jigsawyer Relationship Specialty Start Date End Date Francesca Bass MD [facility] [place] [id number] PCP - General Internal Medicine 11/29/21
--- OUTSIDE RECORDS SUMMARY | 2024-11-27 12:42 | XMS_ITS | Data Portability ---
Author Organization [facility], [facility] Address [address] [place] [address] Assessment Encounter Date Assessment Date Assessment LastModified by Organization Details LastModified Time 12/15/2023 12/15/2023 I am seeing the patient today under the supervision of Dr. Velazquez who was available but who did not see the patient. HPI: Patient is a 68 year old female presenting today for evaluation of right knee pain. Patient had an injury on Tuesday ascending stairs. [place] a pop in the back of the [...] is noted. No ligamentous laxity. Positive Caryl s . Calf is supple and nontender. Neurovascularly intact distally. X-rays ordered, obtained and reviewed at [facility]. 4 views of the right knee today [...] or to follow up sooner if needed. [email or web address] Not available 12/15/2023 10:41:38 02/29/2024 02/29/2024 I [...] or to follow up sooner if needed. [email or web address] Not available 02/29/2024 12:46:08 Plan of Treatment Reminders Order Date Submit Date Provider Last Modified By Organization Details Last Modified Time Details Appointments None recorded. Lab None recorded. Referral None recorded. Procedures None recorded. Surgeries None recorded. Imaging MRI, knee, w/o contrast - r/o MMT injury 12/12 [facility] [address], [place], [address], 4 08:46:17 XR, knee, 4 or more view - new eval right knee pain room 110 2023 [facility], [address], [address], [place], [address], 4 08:46:17 Medication Orders None recorded. Patient TargetsNo targets recorded. Patient InstructionsNo instructions recorded. Reason for Referral None Reported. Results Created Date Observation Date Name Description Value Unit Range Abnormal Flag Note LastModifiedBy Organization Detail LastModifiedTime 12/15/1912/15/2023 XR, knee, 4 or more view http:/ [email or web address] ?Encry pted=s hAaTro YD8dLq bEUv6g %2BXZw aYqtaq 0bqfl% 2Fg9IQ a4ajBk vP9nXo QUaueC m3YtLR FvZlgJ JJ8mAn HZtai3 8j8594 AC0Kqa H6CVqu hKiQtr MwF INTERFACE [facility] [address], [place], [address], 12/15/2023 08:55:07 12/15/1912/15/2023 XR, knee, 4 or more view [email or web address] ?Encry pted=s hAaTro YD8dLq bEUv6g %2BXZw aYqtaq 0bqfl% 2Fg9IQ a4ajBk vP9nXo QUaueC m3YtLR FvZlgJ JJ8mAn HZtai3 3s9939 AC0Kqa H6CVqu hKiQtr MwF INTERFACE [facility] [address], [place], [address], 12/15/2023 08:55:09 12/22/19 24 12/20/2023 MRI, knee, w/o contr ast [facility] Access ion Number : [id number] Patien t Name: Melba Kline Record Number : [id number] Date of : 1955 Date of Exam: 2023 Referr ing Physic linette: Shira Mead NEOS [address]/ [address] [place] [address] Exam: MR Knee (C-) CPT 97013 - Right Room Descri ption: [place] GE Pion 3T Histor y: Persis tent [...] cyst. Electr onical ly Signed By: Karen [facility] ([facility]) [address], [place], [address], 12/27/2023 07:41:30 Result Notes Documentation Provider Name and Address Organization Details Recorded Time Xr, Knee, 4 Or More View : [email or web address] Encrypted=ouHyDplQK8wTftA Uv6g%2AJDsxQmlud8tbdf%2Fg 7XFt6hvYsyL2oPjCBtpsTr6Cv ISEzCirRLN4vDoEQjrl33s067 9WF8BoeV8JCrgbAkDygYfA Not Available [facility] 12/15/2023 08:55:07 Xr, Knee, 4 Or More View : [email or web address] Encrypted=czTbVdfXJ5lMeqR Uv6g%4YPZziOergk6rynn%2Fg 2XUh9raDvkU4xEwBPsrzYz7Mm DLCjSnqRKJ5iCvMPnbl03i720 3MC9GbyT9PHnlgHkJczAbX Not Available [facility] 12/15/2023 08:55:09 Mri, Knee, W/o Contrast : [facility] [place] Accession Number: [id number] Patient Name: Melba Kline Date of : 1955 Date of Exam: 12-20-2023 Referring Physician: Joni Mead [address]/ [address] [place] [address] Exam: MR Knee (C-) CPT 75672 - Right Room Description: [facility] 3T History: Persistent pain and [...] Electronically Signed By: Khadar Mead PA-C [address], [place], [address], [facility] 12/27/2023 07:41:30 Problems Name Problem SNOMED Code Status Onset Date Resolution Date Notes Provider Name and Address Organization Details Recorded Time Pain of right knee joint 316238735392910 Active 2023 [facility] 4 08:47:46 Problem Notes None recorded. Medical Equipment None Reported. Allergies Allergen ID Allergen Name Allergen Category Reaction Reaction Severity Criticality Documentation Date Start Date Code Code System Note Provider Name and Address Organization Details Recorded Time 907890 Iodinated contrast media (substanc e) medicatio n Not available Not available Not available 04/18/20232022 92628 2003 SNOMED Aller gyNam e: 'ivp dye'; Not Available [facility] 4 15:13:38 640957 iodine medicatio n Not available Not available Not available 04/18/20232022 5933 RxNorm Not Available [facility] 4 15:13:38 Medications Name Sig Start [...] Updated DateTime 02/29/2024 154.94 cm 34 kg/m2 75249.63 g KAYLIA L'HEUREUX [facility] 02/29/2024 09:41:42 Date Recorded Body height Body mass index (BMI) Body weight Provider Name and Address Organization Details Last Updated DateTime 12/15/2023 154.94 cm 34 kg/m2 04636.63 g KAYLIA L'HEUREUX [facility] 12/15/2023 08:45:52 Social History Question Answer Notes LastModified by [employer]ipClock Details LastModified Time Tobacco Smoking Status Never Smoker Assay DepotARLETHIA L'HEUREUX [facility] 12/15/2023 08:47:09 Have You Ever Been Counseled For Unhealthy Alcohol Use? No Information not available 12/15/2023 What Is Your Relationship Status? Single Information not available 12/15/2023 Sex: Unknown Functional Status Question Answer Note LastModified by [employer]Clock Details LastModified Time How many times per [...] Disease N Heart Trouble N Heart Attack ([place]) N Gastrointestinal Disease N Cholesterol Y Diabetes [...] Diagnosis SNOMED-CT Code Diagnosis ICD10 Code Diagnosis IMO Codes Diagnosis Note [id number] BR[facility] Lopez [address] [place] [address] 12/15/2023 08:30:58 01/09/2024 08:46:17 Pain of right knee joint 7988722125 66598 M25.561 594481 Osteoarthr itis of right knee joint 0211818900 12192 M17.11 4241008 Derangemen t of right knee 9559087640 1039392 M23.91 [id number] BRAD Lopez [address] [place] [address] 02/29/2024 09:29:56 03/12/2024 13:03:36 Osteoarthritis of right knee joint 0332562860 82331 M17.11 [id number] Health Concerns Section Related Observation LastModified by Organization Detai ls LastModified Time None Recorded Concern Status LastModified by Organization Details LastModified Time None Recorded Advance Directives Directive None Recorded Payers Insurance Date Sequence Insurance Name Policy Number Policy Whitt Covered Member ID Whitt Member ID Guarantor Name 05/05/2024 2 FOR LIFE ( - MEDICARE SUPPLEMENT) Melba Kline [id number] Melba Kline 05/06/2024 1 [place]IC[place]: [employer] Melba Kline [id number] Melba Kline OBGyn Episode No OBEpisode recorded.
== END 2024-11-27 12:12 | disposition home or self-care (01) ==
LOC: HO.HMCC 10:44
PROVIDERS: PCP Internal Medicine; Visit Provider Internal Medicine
DX: R05.3 Chronic cough (principal); I10 Essential (primary) hypertension; E78.5 Hyperlipidemia, unspecified; E11.9 Type 2 diabetes mellitus without complications; E03.9 Hypothyroidism, unspecified

== ENCOUNTER → 2024-11-27 10:43 | Outpatient (BNVA) | payer MEDICARE, OTHER, SELFPAY | PROVIDERS: PCP Internal Medicine; Visit Provider Internal Medicine | DX: R05.3 Chronic cough (principal); R06.2 Wheezing; I10 Essential (primary) hypertension; E11.9 Type 2 diabetes mellitus without complications; R79.89 Other specified abnormal findings of blood chemistry; E78.5 Hyperlipidemia, unspecified; E03.9 Hypothyroidism, unspecified; R80.9 Proteinuria, unspecified | CPT/HCPCS: 96127; 99212 ==

== ENCOUNTER 2025-01-21 09:08 | Outpatient (AMB) | payer MEDICARE, OTHER, SELFPAY ==
[2025-01-21 10:03] VITALS: BP 110/70; PULSE 78; RESP 16; TEMP 36.6; O2SAT 95; BMI 35.5
--- NOTE | 2025-01-21 10:03 | A.OFFVIS_ITS ---
Intake Vital Signs 01/21/25 10:03 Height 5 ft Weight 182 lb BMI 35.5 BP 110/70 Blood Pressure Location Lt brachial Position Sitting Respiration 16 Pulse 78 Pulse Source Pulse Oximeter Temp 97.9 F Temp Source Oral Pulse Oximetry (%) 95 Oxygen Delivery Method Room Air Intake Visit Reasons: CORI G0439 Intake Note: Pt is here today for her SWV: mammogram 08/14/24, bone density scan 07/12/23, colonoscopy 06/27/23 Postal Supervisor Required: No Allergies amlodipine (From Lotrel) Allergy (Unknown, Verified 01/21/25 10:29) Rash benazepril (From Lotrel) Allergy (Unknown, Verified 01/21/25 10:29) Rash IVP dye Allergy (Unknown, Uncoded 01/21/25 10:29) rash Medication List - Last Reconciled 01/21/25 by Francesca Bass MD albuterol sulfate 90 mcg/actuation (ProAir HFA) 2 puffs inhalation Q6H PRN aspirin (Adult Low Dose Aspirin) 81 mg PO DAILY BreatheRite MDI Spacer (inhalational spacing device) As directed NS budesonide-formoterol 80-4.5 mcg/actuation (Symbicort) 2 puffs inhalation BID cholecalciferol (vitamin D3) 25 mcg PO DAILY levothyroxine 50 mcg PO DAILY losartan 25 mg PO DAILY magnesium oxide 250 mg PO DAILY metformin ER (Glucophage XR) 500 mg PO QPM metoprolol succinate ER 100 mg PO DAILY omeprazole 40 mg PO DAILY piroxicam 10 mg PO DAILY rosuvastatin (Crestor) 20 mg PO DAILY triamcinolone acetonide 0.1% as directed. HPI SWV G0439 HPI Details SWV ? 69-year-old lady here today for her subsequent annual wellness visit. She is up-to-date with her screening mammogram and Bone density scan , done 08/14/2024 with negative findings and bone density scan done 07/12/2023 showing normal results. her last Pap smear was done by Dr. Butler in 2015 which came back with negative findings as wel, no longer gets pap/pelvic exam. She had a screening colonoscopy done 06/26/[address] Mcintosh, with negative findings, due again in 2028. She had a fasting lipid panel screening done 11/22/2024 which showed normal fasting lipids Her fasting blood sugar was elevated with a hemoglobin A1c at 6.5% She is up-to-date with her flu shot, pneumonia vaccination, Shingrix vaccine and Tdap but is due for her COVID booster . ? Medical / Social History Reviewed? Past Medical History ?Yes . ? [place] of Care / Care Team list updated ?Yes . ? Surgical/Hospitalization History ?Yes . ? Current Medications (including OTC and supplements) ?Yes . ? Family History ?Yes . ? Tobacco Control form ?Yes . ? AUDIT-C (Alcohol use) form ?Yes . ? Illicit drug use in Social History ?Yes . ? Current diagnosis of depression? ?No ? Appropriate PHQ2/PHQ9 completed ?Yes . ? Data entered by ?Steel Crane Operator and reviewed by provider ? Fall Risk ? Fall History? Have you had any falls with injury in the past year? ?No . ? Have you had two or more falls in the past year? ?No . ? Fall Risk Assessment: ?No falls in the past year . ? HRA filled out by the patient, reviewed by Provider and scanned. ?SWV ? Balance? Romberg ? negative. ? Tandem walk ? able to do . ? Walk and Turn ?Yes . ? Rise from sit to stand ?Yes . ?Vision? Corrective lens ?Yes ? Vision screen ? Up-to-date, sees ?Hearing? Whisper test ?pass, but with the use of hearing aid . ?Written Plan?Completed. See Patient Documents.? healthcare proxy done 01/08/2024 HPI Comments History of Present Illness Details The patient is a 69-year-old female presenting with viral symptoms. She has been experiencing a cough since her urgent care visits in October, which has now been compounded by what she believes is a cold from her sister. The patient reports new-onset postmenopausal bleeding, described as a pinkish vaginal discharge that has occurred a few times, along with intermittent right- sided pelvic pain. She has a history of uterine fibroids. Her last Pap smear was in 2015, and she recalls a pelvic ultrasound from that time where the right ovary was not well visualized. She recalls a difficult pelvic exam around age 64 due to vaginal dryness and the use of a large speculum without lubricant, which caused bleeding and an abrasion. The patient's CLL is stable , isasymptomatic , and being monitored by . Her diabetes is controlled on metformin, and she denies any numbness or tingling in her feet. . Her last A1c was 6.5% in November. For hyperlipidemia, she previously stopped atorvastatin due to urinary urgency but is now tolerating rosuvastatin (Crestor) without issues. Her last LDL was 105 mg/dL. Her thyroid condition is stable. She continues to take paroxetine, which was prescribed years ago by a block mason in [place]. Immunizations are up to date for shingles, tetanus, pneumonia, and influenza, but she has not received the recent COVID or RSV vaccines due to her ongoing congestion. PFSH Medical History Chronic cough Wheezing on auscultation Type 2 diabetes mellitus without complication, without long-term current use of insulin Nocturnal leg cramps Lymphocytosis Family history of peripheral vascular disease Hearing impairment Tinnitus of both ears Intermittent lightheadedness Exercise induced bronchospasm Tick bite of right upper arm History of gallstones Impaired fasting glucose Acquired hypothyroidism Carpal tunnel syndrome Mild acquired hearing loss GERD (gastroesophageal reflux disease) Keratitis, herpetic Dyslipidemia Osteoarthritis of spine Essential hypertension Surgical History History of myomectomy History of carpal tunnel surgery Hx of cholecystectomy Family History Father Arthritis CVD (cardiovascular disease) Mother Arthritis HTN (hypertension) Non-insulin dependent diabetes mellitus History of CVA (cerebrovascular accident) Brother No problems noted. Sister No problems noted. Sister Mental health disorder Sister Ovarian cancer Tubular adenoma Anemia Sister Factor V Leiden Anemia Social History Household Members: Family Housing: House Alcohol intake: current Alcohol intake frequency: holidays/special occasions only Patient Tobacco Use Status: Never used Tobacco e-Cigarette/Vaping Use: Never Used service: Yes Current occupational status: retired Gender identity: Female Cognitive needs: No Hearing needs: No Vision needs: Yes Questionnaire Medicare Wellness Checkup [age] What gender do you identify with?: female During the past 4 weeks, how much have you been bothered by emotional problems such as feeling anxious, depressed, irritable, sad or downhearted, and blue?: not at all During the past 4 weeks, has your physical & emotional health limited your social activities with family, friends, neighbors, or groups?: not at all During the past 4 weeks, how much bodily pain have you generally had?: very mild pain During the past 4 weeks, was someone available to help you if you needed & wanted help?: yes, as much as I wanted During the past 4 weeks, what was the hardest physical activity you could do for at least 2 minutes?: heavy Can you get to places out of walking distance without help? (For eg., can you travel alone on buses, taxis or drive your car?): Yes Can you go shopping for groceries or clothes without someone's help?: Yes Can you prepare your own meals?: Yes Can you do your housework without help?: Yes Because of any health problems, do you need the help of another person with your personal care needs such as eating, bathing, dressing or getting around the house?: No Can you handle your own money without help?: Yes During the past 4 weeks, how would you rate your health in general?: good During the past 4 weeks how have things been going for you?: pretty well Are you having difficulties driving your car?: no Do you always fasten your seat belt when you are in a car?: yes, usually During past 4 weeks, have you been bothered by the following: never: Falling or dizzy when standing up, Sexual problems?, Trouble eating well? and Problems using the telephone?, seldom: Teeth or denture problems? and sometimes: Tiredness or fatigue? Have you fallen 2 or more times in the past year?: No Are you afraid of falling?: No Are you a smoker?: no During the past 4 weeks, how many drinks of wine, beer, or other alcoholic beverages did you have?: no alcohol at all Do you exercise for about 20 minutes 3 or more times a week?: yes, some of the time Have you been given information to help with the following?: no: Hazards in your house that might hurt you? and no: Keeping track of your medications? How often do you have trouble taking medicines the way you have been told to take them?: I always take medicine as prescribed How confident are you that you can control & manage most of your health problems?: very confident What is your race?: White Mini Mental State Exam (MMSE) Orientation What is the (year) (season) (date) (day) (month)?: year (2024), season (Fall), date (01/21/25), day (Tuesday) and month (Dec.) Where are we (state) (county) (town or city) (hospital) (floor)?: state ([facility]), [facility] [facility] town or city ([place]) and hospital/clinic ([facility] [place]) Score Score: 9 Activity of Daily Living Bathing - sponge bath, tub bath or shower: receives no assistance (gets in/out by self, if usual bathing means Dressing - getting clothes from closets & drawers, including inner/outer garments & fasteners.: gets clothes & gets completely dressed without help Toileting - going to the 'toilet room' for urine/bowel elimination & cleaning self/arranging clothes: goes to toilet room, cleans self, arranges clothes without help Transfer: moves in & out of bed and chair without help (may use support object) Continence: controls urination/bowel movements completely by self Feeding: feeds self without help Total Score: 0 Information obtained from: patient Using telephone: independent Traveling: independent Shopping: independent Preparing meals: independent Housework: independent Taking medicine: independent Managing money: independent PHQ-9 Over the last 2 weeks, how often have you been bothered by any of the following problems? 1. Little interest or pleasure in doing things: not at all 2. Feeling down, depressed, or hopeless: not at all 3. Trouble falling or staying asleep, or sleeping too much: not at all 4. Feeling tired or having little energy: several days 5. Poor appetite or overeating: not at all 6. Feeling bad about yourself - or that you are a failure or have let yourself or your family down: not at all 7. Trouble concentrating on things, such as reading the newspaper or watching television: not at all 8. Moving or speaking so slowly that other people could have noticed. Or the opposite - being so fidgety or restless that you have been moving around a lot more than usual: not at all 9. Thoughts that you would be better off or of hurting yourself in some way: not at all Total score: 1 Depression Screening Interpretation: Negative Depression Screening Done: Yes 82839 - PHQ-9 Billing: Yes Source: Developed by Drs. Oni Quesada, Patrizia Bianchi, Andrew Head and colleagues, with an educational carter from [employer]. Review of Systems Const All systems reviewed & are unremarkable except as noted in HPI and below Physical Exam Vital Signs: Last Vital Signs Temp 97.9 F 01/21/25 10:03 Pulse 78 01/21/25 10:03 Resp 16 01/21/25 10:03 BP 110/70 01/21/25 10:03 Pulse Ox 95 01/21/25 10:03 Oxygen Delivery Method Room Air 01/21/25 10:03 BMI result Body Mass Index 35.5 Results Reviewed Results Reviewed: Name: Melba Kline Age/Sex: 69/F : 1955 Unit#: [id number] Attend Dr: Maura Jensen MD Re12/14/24 Status: REG RCR Location: [facility] Disch: SPEC : [id number] ANIA: 12/14/24 STATUS: COMP REQ : [id number] RECD: 12/14/[address]: Mahogany Polo NP COMP: 12/14/24 ENTERED: 12/14/[address]: Maura Jensen MD, Annabel C MD ORDERED: CBC Auto Diff, SLIDE REVIEW Test Result Flag Reference WBC 10.1 4.8-10.8 X10*3/uL RBC 4.37 4.20-5.50 X10*6/uL HGB 13.3 12.0-16.0 g/dl HCT 40.6 37.0-47.0 % MCV 92.9 80.0-98.0 fL MCH 30.4 27.0-33.0 pg MCHC 32.8 31.0-35.0 g/dl RDW 12.7 11.0-16.0 % PLT 178 160-400 X10*3/uL MPV 9.9 9.4-12.3 fL Neut Pct Auto 31.5 L 45-73 % ImGran Pct Auto 0.2 0.0-0.4 % Lymp Pct Auto 61.7 H 20-40 % Pennington Pct Auto 4.0 2-11 % Eos Pct Auto 2.4 0-4 % Baso Pct Auto 0.2 0-2 % NRBC Pct Auto 0.0 0.0-0.2 /100WBC ANC Neut Abs # 3.2 2.0-8.3 x10*3/uL ImGran Abs Auto 0.02 0.00-0.03 X10*3/uL Lymph Abs Auto 6.2 H 1.2-4.9 X10*3/uL Pennington Abs Auto 0.4 0.1-1.2 X10*3/uL Eos Abs Auto 0.2 0.0-0.4 X10*3/uL Baso Abs Auto 0.0 0.0-0.2 X10*3/uL NRBC Abs Auto 0.000 0.0-0.012 X10*3/uL SLIDE REVIEW VERIFIED Name: Melba Kline Age/Sex: 69/F : 1955 Unit#: [id number] Attend Dr: Maura Jensen MD Re12/14/24 Status: REG RC Location: [facility] Disch: SPEC : [id number] ANIA: 12/14/24 STATUS: COMP REQ : [id number] RECD: 12/14/[address]: Mahogany Polo PLANT SCIENTIST COMP: 12/14/24 ENTERED: 12/14/[address]: Maura Jensen MD, Annabel C MD ORDERED: CMP Test Result Flag Reference Sodium 141 135-145 mmol/L Potassium 4.8 3.3-5.1 mmol/L CL 107 96-108 mmol/L CO2 27 22-29 mmol/L Gap 12 12-20 BUN 22 H 9-16 mg/dL Creat 0.64 0.5-1.4 mg/dL Estimated CrCl 78.6 Provided height and weight: 152.4 cm, 84 kg. eGFR (calculated from the MDRD study equation) and eCrCl (calculated from the Cockcroft-Gault equation) are based on different parameters and may not yield comparable results. If eCrCl result is absurd, please check patient's height/weight. eGFR > 60 Chronic Kidney Disease: Estimated GFR < 60 mL/min/1.73m2 Severe Kidney Disease: Estimated GFR < 15 mL /min/1.73m2 Glucose, Random 145 H 60-115 mg/dL CA 9.7 8.4-10.2 mg/dL Total Bili 0.3 0.0-1.0 mg/dL AST (GOT) 36 H 5-31 U/L ALT (GPT) 61 H 0-31 U/L Protein, Total 7.2 6.5-8.0 g/dL Alb 4.6 3.5-5.0 g/dL Alk Phos 88 39-117 U/L Assessment & Plan Assessment & Plan (1) Encounter for subsequent annual wellness visit (AWV) in Medicare patient: Code(s): Z00.00 - Encounter for general adult medical examination without abnormal findings Plan: Medical wellness checklist reviewed, discussed with patient and updated. She is complete with her vaccinations except does not want to get a COVID booster. Already completed her advanced directives. (2) Hearing impairment: Comment: Now wears hearing aid Code(s): H91.90 - Unspecified hearing loss, unspecified ear Qualifiers: Hearing loss type: unspecified Laterality: bilateral Qualified Code(s): H91.93 - Unspecified hearing loss, bilateral Plan: has hearing aids (3) Post-menopause bleeding: Code(s): N95.0 - Postmenopausal bleeding Plan: The patient reports a few episodes of pinkish vaginal discharge and intermittent right-sided pelvic pain. Given her history of uterine fibroids and a prior ul trasound in 2016 that could not visualize the right ovary, this requires urgent evaluation. The patient was strongly advised to contact her community development technician for an appointment to investigate the postmenopausal bleeding (4) Acquired hypothyroidism: Code(s): E03.9 - Hypothyroidism, unspecified Plan: Continued on levothyroxine 50 mcg daily (5) Type 2 diabetes mellitus without complication, without long-term current use of insulin: Code(s): E11.9 - Type 2 diabetes mellitus without complications Plan: Continue metformin ER 500 mg at night with supper (6) Dyslipidemia: Code(s): E78.5 - Hyperlipidemia, unspecified Plan: Continued on rosuvastatin 20 mg daily (7) Essential hypertension: Code(s): I10 - Essential (primary) hypertension Plan: Blood pressure at goal of less than 130/80. Continue with losartan 25 mg daily and metoprolol succinate ER 100 mg once a day.. Reinforced importance of following a low sodium diet, getting regular exercise, and lowering stress levels. (8) CLL (chronic lymphocytic leukemia): Code(s): C91.10 - Chronic lymphocytic leukemia of B-cell type not having achieved remission Plan: Asymptomatic, currently followed by Oncology Clinic Plan . Quality Reporting (2019) Depression/Bipolar (159/160/161/177) PHQ-9: Total score: 1 Coding Level of Care Code Medicare Subsequent (G0439) Est Pt Level 4 (32422) Diagnoses Encounter for subsequent annual wellness visit (AWV) in Medicare patient Z00.00 Bilateral hearing loss, unspecified hearing loss type H91.93 Hearing loss type: unspecified Laterality: bilateral Post-menopause bleeding N95.0 Acquired hypothyroidism E03.9 Type 2 diabetes mellitus without complication, without long-term current use of insulin E11.9 Dyslipidemia E78.5 Essential hypertension I10 CLL (chronic lymphocytic leukemia) C91.10 CPT Codes Advance Care Planning - Advance Care Planning discussion: On file, no changes ([id number]) Advance Care Planning - Time spent: 1-15 minutes, on File ([id number]) Additional Codes PHQ-9 - 11716 - PHQ-9 Billing: Yes ([id number]) Advance Care Planning Advance Care Planning discussion: On file, no changes Date of discussion: 01/21/25 Who was present: patient Forms completed: Health Care Proxy Time spent: 1-15 minutes, on File Actual minutes spent: 1
== END 2025-01-21 11:46 | disposition home or self-care (01) ==
LOC: HO.HMCC 09:09
PROVIDERS: PCP Internal Medicine; Visit Provider Internal Medicine
DX: Z00.00 Encounter for general adult medical examination without abnormal findings (principal); E11.9 Type 2 diabetes mellitus without complications; I10 Essential (primary) hypertension; C91.10 Chronic lymphocytic leukemia of B-cell type not having achieved remission; N95.0 Postmenopausal bleeding; E78.5 Hyperlipidemia, unspecified; E03.9 Hypothyroidism, unspecified; H91.93 Unspecified hearing loss, bilateral

== ENCOUNTER → 2025-01-21 09:08 | Outpatient (BNVA) | payer MEDICARE, OTHER, SELFPAY | PROVIDERS: PCP Internal Medicine; Visit Provider Internal Medicine | DX: Z00.00 Encounter for general adult medical examination without abnormal findings (principal); H91.93 Unspecified hearing loss, bilateral; N95.0 Postmenopausal bleeding; E03.9 Hypothyroidism, unspecified; E11.9 Type 2 diabetes mellitus without complications; E78.5 Hyperlipidemia, unspecified; I10 Essential (primary) hypertension; C91.10 Chronic lymphocytic leukemia of B-cell type not having achieved remission; Z79.84 Long term (current) use of oral hypoglycemic drugs; Z13.31 Encounter for screening for depression | CPT/HCPCS: 96127 ==